=== PATIENT | male | born 1955 ===

== ENCOUNTER 2017-06-27 03:26 | Inpatient (IN) | payer OTHER, SELFPAY ==
[2017-06-27] MEDS ORDERED: diaZEpam 10 mg/2 ml Inj IVP ONE (04:06)
[2017-06-27 04:07] LABS: VENOUS BLOOD GAS BASE EXCESS 4.8 mmol/L (0.0-2.0); VENOUS BLOOD GAS PCO2 45 mmHg (40-60); VENOUS BLOOD PH 7.43 (7.32-7.43)
[2017-06-27 04:10] LABS: BASO % 0.1 % (0.0-2.0); HEMATOCRIT 42.3 % (35.0-51.0); LYMPH # 0.5 K/uL (1.0-4.3); LYMPH % 5.8 % (20.0-40.0); MEAN CELL VOLUME 94.8 fl (80.0-94.0); MEAN CORPUSCULAR HEMOGLOBIN 33.2 pg (27.0-31.0); MEAN PLATELET VOLUME 9.8 fl (7.2-11.7); MONO # 0.9 K/uL (0.0-0.8); MONO % 10.7 % (0.0-10.0); NEUT # 7.4 K/uL (1.8-7.0); NEUT % 83.4 % (50.0-75.0); PLATELET COUNT 130 K/uL (130-400); RED CELL DISTRIBUTION WIDTH 13.3 % (11.5-14.5); WHITE BLOOD COUNT 8.9 K/uL (4.8-10.8)
--- NOTE | 2017-06-27 04:11 | ED PDOC ---
HPI: Altered Mental Status Time Seen by Provider: 06/27/17 03:27 Chief Complaint (Nursing): Altered Mental Status Chief Complaint (Provider): Altered Mental Status History Per: Patient History/Exam Limitations: Clinical Condition Current Symptoms Are (Timing): Still Present Usual Baseline: Unknown Additional Complaint(s): Duc is a 62 y/o male who was brought to the ED by EMS after he was found outside the [facility] confused and disoriented. Patient states he drank beer but has vodka on his person. He denies cough or any other symptoms, and states he feels well. PMD: None Provided Past Medical History Reviewed: Historical Data, Nursing Documentation, Vital Signs Vital Signs: Last Vital Signs Temp 102.2 F H 06/27/17 04:01 Pulse 118 H 06/27/17 03:35 Resp 16 06/27/17 03:35 BP 167/97 H 06/27/17 03:35 Pulse Ox 100 06/27/17 03:35 - Family History Family History: States: Unknown Family Hx - Home Medications Home Medications: Ambulatory Orders Medication Instructions Recorded No Known Home Med [No Known Home 02/22/15 Med] - Allergies Allergies/Adverse Reactions: Allergies Allergy/AdvReac Type Severity Reaction Status Date / Time No Known Allergies Allergy Verified 02/22/15 01:47 Review of Systems Review Of Systems: ROS cannot be obtained secondary to pt's inabilty to answer questions. Respiratory: Negative for: Cough Physical Exam - Reviewed Nursing Documentation Reviewed: Yes Vital Signs Reviewed: Yes - Physical Exam Appears: Positive for: Well, Non-toxic, No Acute Distress Head Exam: Positive for: ATRAUMATIC, NORMAL INSPECTION, NORMOCEPHALIC Skin: Positive for: Normal Color, Warm (warm to touch), Dry ENT: Positive for: Other (tongue fasciculations) Neck: Positive for: Normal, Painless ROM, Supple Extremity: Positive for: Other (tremulous) Neurologic/Psych: Positive for: Alert, Oriented (x 1 - time), Mood/Affect ( Confused) - Laboratory Results Result Diagrams: 06/27/17 03:58 06/27/17 03:58 - ECG O2 Sat by Pulse Oximetry: 100 (RA) Pulse Ox Interpretation: Normal - Critical Care Total Time (In Min): 60 Medical Decision Making Medical Decision Making: Time: 3:45 Initial Impression: Sepsis, possible alcohol withdrawal Initial Plan: --VBG --EKG --Alcohol Serum --CMP --Urine Drug Screen --Magnesium --Phosphorous --CBC --PTT --Prothrombin Time --Chest x-ray --Tylenol 6AM 1 WBC on cell count, very unlikely meningitis. Head CT negative. Urine pending. Etiology of fever unknown. Likely main reason for AMS is alcohol withdrawal. Dr. Dalton aware of patient for ICU for close monitoring for worsening withdrawal symptoms/alcohol withdrawal. Scribe Attestation: Documented by Gaudencio Voss, acting as a scribe for Konstantin Diamond MD Provider Scribe Attestation: All medical record entries made by the Scribe were at my direction and personally dictated by me. I have reviewed the chart and agree that the record accurately reflects my personal performance of the history, physical exam, medical decision making, and the department course for this patient. I have also personally directed, reviewed, and agree with the discharge instructions and disposition. Disposition - Clinical Impression Clinical Impression: Altered mental status, Sepsis, Alcohol withdrawal - Disposition Disposition Time: 05:00 Condition: SERIOUS Lumbar Puncture - Time Out Time Out: Side verified, Site verified, Patient ID confirmed, Sterile procedures obs. - Consent obtained Consent obtained: Emergent consent implied - Performed by Performed by: Attending Physician - Indications Indication(s): Suspected menigitis - Contraindications Contraindications: None - Patient Position Patient position: Right lateral decubitus - Local Anesthetic Location: L4/L5 - Fluid Appearance Fluid Appearance: Clear - Post-procedure Post-procedure: No leak/bld from LP site, Dressing applied, Patient laid flat, Neurovascular status nml - CSF Studies CSF Studies: Cell count/diff, Glucose, Protein, Gram stain, culture/sensitivity - Post-procedural O2 sat % Post-Procedural O2 sat %: 100 - Complications Complications: None - Patient tolerated procedure Patient tolerated procedure: Well
[2017-06-27 04:16] LABS: ALKALINE PHOSPHATASE 123 U/L (38-126); ALT/SGPT 50 U/L (21-72); AST/SGOT 243 U/L (17-59); BILIRUBIN,TOTAL 2.4 mg/dl (0.2-1.3); BLOOD UREA NITROGEN 22 mg/dl (9-20); CARBON DIOXIDE 26 mmol/L (22-30); CHLORIDE 95 mmol/L (98-107); GFR AFRICAN-AMERICAN > 60; GLUCOSE,RANDOM 127 mg/dL (75-110); PHOSPHOROUS 2.8 mg/dl (2.5-4.5); POTASSIUM 3.6 MMOL/L (3.6-5.0); SODIUM 133 mmol/l (132-148); TOTAL PROTEIN 9.7 G/DL (6.3-8.2)
[2017-06-27] MEDS ORDERED: Lidocaine 1% Inj (20ml) ONE (04:16)
[2017-06-27 04:24] LABS: PARTIAL THROMBOPLASTIN TIME 32.6 Seconds (25.6-37.1)
[2017-06-27] MEDS ORDERED: cefTRIAXone 2 GM in Sodium Chloride 0.9% 100 ML IVPB STA (04:35)
[2017-06-27 04:50] LABS: FLUID TYPE SPINAL FLUID
[2017-06-27 05:36] LABS: NEUTROPHIL 82 % (42-75); TOTAL CELLS COUNTED 100
[2017-06-27 05:37] LABS: LARGE PLATELETS PRESENT; STOMATOCYTES MODERATE
[2017-06-27 06:11] LABS: RBC URINE 1 /hpf (0-3); URINE BILIRUBIN NEGATIVE (NEGATIVE); URINE BLOOD LARGE (NEGATIVE); URINE COLOR YELLOW (YELLOW); URINE GLUCOSE (UA) NEG (Normal); URINE KETONE 20 mg/dL (NEGATIVE); URINE LEUKOCYTE ESTERASE NEG Leu/uL (Negative); URINE PROTEIN 100 mg/dL (NEGATIVE); URINE UROBILINOGEN 0.2-1.0 mg/dL (0.2-1.0); WBC URINE 1 /hpf (0-5)
[2017-06-27] MEDS ORDERED: Sodium Chloride 0.9% 1,000 ML IV STA (06:11)
[2017-06-27] MEDS ORDERED: Lorazepam 2 mg/ml (10ml) Sol IV STA (06:24)
[2017-06-27 06:35] LABS: CSF NEUTROPHIL 2 % (0-0)
[2017-06-27 07:17] LABS: VENOUS BLOOD GAS BASE EXCESS 1.2 mmol/L (0.0-2.0); VENOUS BLOOD GAS PCO2 41 mmHg (40-60); VENOUS BLOOD PH 7.41 (7.32-7.43)
--- NOTE | 2017-06-27 08:26 | CP.PCM.HP ---
History of Present Illness - History of Present Illness History of Present Illness: 62 y/o male who was brought to the ED by EMS after he was found outside the [facility] confused and disoriented. Per ER report, Patient states he drank beer but had vodka on his person. Pt somnolent after receiving Ativan 2MG x2 and Librium 50mg. Recently received additional 1mg 20 min prior to examination due to tremulousness. Continues to have tremors despite sedation. Vitals Tmax 102.4 T 98.3 169/95, 112, 98% 16. Received almost 4L NS, Libruim 50 mg, Ativan 2 mg x2, Ativan 2 mg x1, Ceftriaxone x1, CXR cardiomegaly, EKG sinus tach, repeat poor study, CT head neg , CSF gram stain NEG, Urine and Blood Cx pending. BUN 22, Tbili 2.4, AST 243. ETOH <10. Add on Troponin, Lipase, CK. Librium 50 PO Q8 for DTs/ ETOH withdrawal. Taper as needed. Patient to be admitted to ICU for progressively worsening alcohol withdrawal, delirium tremens. ROS: unable to be obtained at this time 2/2 sedation Past medical and surgical history: Unable to obtain at this time secondary to sedation Family history: Unable to obtain secondary gestation at this time Social history: As above Medications unknown Physical exam: Constitutional- patient is sedated, spontaneously moving all limbs does not appear to be any distress Head- NCAT, PERRL Eye- PERRL, normal accommodation ENT- normal exam, MMM. Neck- normal inspection, supple, no JVD Respiratory- CTAB, no wheezes rales rhonchi Cardiovascular- RRR, +S1, +S2 no MRG GI/Abdominal- normal bowel sounds, soft, no mass, no hsm Skin- warm, dry Extremities Exam- normal capillary refill, normal inspection Neurological Exam- sedated, spontaneously moving all limbs Psych-unable to obtain given sedation Micro Results 06/27/17 04:30 Cerebral Spinal Fluid Gram Stain - Final Most Recent Lab Values WBC 8.9 K/uL (4.8-10.8) D 06/27/17 03:58 RBC 4.46 Mil/uL (4.40-5.90) 06/27/17 03:58 Hgb 14.8 g/dL (12.0-18.0) 06/27/17 03:58 Hct 42.3 % (35.0-51.0) 06/27/17 03:58 MCV 94.8 fl (80.0-94.0) H D 06/27/17 03:58 MCH 33.2 pg (27.0-31.0) H 06/27/17 03:58 MCHC 35.0 g/dL (33.0-37.0) 06/27/17 03:58 RDW 13.3 % (11.5-14.5) 06/27/17 03:58 Plt Count 130 K/uL (130-400) 06/27/17 03:58 MPV 9.8 fl (7.2-11.7) 06/27/17 03:58 Neut % (Auto) 83.4 % (50.0-75.0) H 06/27/17 03:58 Lymph % (Auto) 5.8 % (20.0-40.0) L 06/27/17 03:58 Slope % (Auto) 10.7 % (0.0-10.0) H 06/27/17 03:58 Eos % (Auto) 0.0 % (0.0-4.0) 06/27/17 03:58 Baso % (Auto) 0.1 % (0.0-2.0) 06/27/17 03:58 Neut # 7.4 K/uL (1.8-7.0) H 06/27/17 03:58 Lymph # 0.5 K/uL (1.0-4.3) L 06/27/17 03:58 Slope # 0.9 K/uL (0.0-0.8) H 06/27/17 03:58 Eos # 0.0 K/uL (0.0-0.7) 06/27/17 03:58 Baso # 0.0 K/uL (0.0-0.2) 06/27/17 03:58 Neutrophils % (Manual) 82 % (42-75) H 06/27/17 03:58 Lymphocytes % (Manual) 7 % (20-50) L 06/27/17 03:58 Monocytes % (Manual) 11 % (0-10) H 06/27/17 03:58 Platelet Estimate Slightly decreased (NORMAL) L 06/27/17 03:58 Large Platelets Present 06/27/17 03:58 Stomatocytes Moderate 06/27/17 03:58 PT 13.1 Seconds (9.8-13.1) 06/27/17 03:58 INR 1.2 (0.9-1.2) 06/27/17 03:58 APTT 32.6 Seconds (25.6-37.1) 06/27/17 03:58 pO2 42 mm/Hg (30-55) 06/27/17 07:13 VBG pH 7.41 (7.32-7.43) 06/27/17 07:13 VBG pCO2 41 mmHg (40-60) 06/27/17 07:13 VBG HCO3 25.3 mmol/L 06/27/17 07:13 VBG Total CO2 27.3 mmol/L (22-28) 06/27/17 07:13 VBG O2 Sat (Calc) 82.2 % (40-65) H 06/27/17 07:13 VBG Base Excess 1.2 mmol/L (0.0-2.0) 06/27/17 07:13 VBG Potassium 3.5 mmol/L (3.6-5.2) L 06/27/17 07:13 A-a O2 Difference 56.0 mm/Hg 06/27/17 07:13 Sodium 134.0 mmol/L (132-148) 06/27/17 07:13 Chloride 100.0 mmol/L (98-107) 06/27/17 07:13 Glucose 120 mg/dL (75-110) H 06/27/17 07:13 Lactate 1.0 mmol/L (0.7-2.1) 06/27/17 07:13 FiO2 21.0 % 06/27/17 07:13 Crit Value Called To Dr bowen almanzar 06/27/17 07:13 Crit Value Called By 15 06/27/17 07:13 Crit Value Read Back Y 06/27/17 07:13 Blood Gas Notified Time 717 06/27/17 07:13 Sodium 133 mmol/l (132-148) 06/27/17 03:58 Potassium 3.6 MMOL/L (3.6-5.0) 06/27/17 03:58 Chloride 95 mmol/L (98-107) L 06/27/17 03:58 Carbon Dioxide 26 mmol/L (22-30) 06/27/17 03:58 Anion Gap 16 (10-20) 06/27/17 03:58 BUN 22 mg/dl (9-20) H 06/27/17 03:58 Creatinine 0.9 mg/dl (0.8-1.5) 06/27/17 03:58 Est GFR ( Amer) > 60 06/27/17 03:58 Est GFR (Non-Af Amer) > 60 06/27/17 03:58 POC Glucose (mg/dL) 144 mg/dL (65-110) H 06/27/17 13:04 Random Glucose 127 mg/dL (75-110) H 06/27/17 03:58 Calcium 9.0 mg/dL (8.4-10.2) 06/27/17 03:58 Phosphorus 2.8 mg/dl (2.5-4.5) 06/27/17 03:58 Magnesium 2.0 MG/DL (1.6-2.3) 06/27/17 03:58 Total Bilirubin 2.4 mg/dl (0.2-1.3) H 06/27/17 03:58 AST 243 U/L (17-59) H 06/27/17 03:58 ALT 50 U/L (21-72) 06/27/17 03:58 Alkaline Phosphatase 123 U/L (38-126) 06/27/17 03:58 Total Creatine Kinase 7006 U/L (55-170) H 06/27/17 08:28 CK-MB (Mass) 38.9 ng/mL (0.0-3.38) H 06/27/17 07:04 Troponin I 0.1250 ng/mL (0.00-0.120) H* 06/27/17 08:28 Total Protein 9.7 G/DL (6.3-8.2) H 06/27/17 03:58 Albumin 4.9 g/dL (3.5-5.0) 06/27/17 03:58 Globulin 4.8 gm/dL (2.2-3.9) H 06/27/17 03:58 Albumin/Globulin Ratio 1.0 (1.0-2.1) 06/27/17 03:58 Lipase 31 U/L (23-300) 06/27/17 08:28 Venous Blood Potassium 3.5 mmol/L (3.6-5.2) L 06/27/17 07:13 Urine Color Yellow (YELLOW) 06/27/17 06:04 Urine Clarity Slighty-cloudy (Clear) 06/27/17 06:04 Urine pH 6.0 (5.0-8.0) 06/27/17 06:04 Ur Specific [place] 1.017 (1.003-1.030) 06/27/17 06:04 Urine Protein 100 mg/dL (NEGATIVE) 06/27/17 06:04 Urine Glucose (UA) Neg mg/dL (Normal) 06/27/17 06:04 Urine Ketones 20 mg/dL (NEGATIVE) 06/27/17 06:04 Urine Blood Large (NEGATIVE) 06/27/17 06:04 Urine Nitrate Negative (NEGATIVE) 06/27/17 06:04 Urine Bilirubin Negative (NEGATIVE) 06/27/17 06:04 Urine Urobilinogen 0.2-1.0 mg/dL (0.2-1.0) 06/27/17 06:04 Ur Leukocyte Esterase Neg [place]/uL (Negative) 06/27/17 06:04 Urine RBC (Auto) 1 /hpf (0-3) 06/27/17 06:04 Urine Microscopic WBC 1 /hpf (0-5) 06/27/17 06:04 Ur Squamous Epith Cells < 1 /hpf (0-5) 06/27/17 06:04 Fluid Type Spinal fluid 06/27/17 04:49 CSF Volume 3 mL (0-1) H 06/27/17 04:49 CSF Appearance Clear/colorless (CLEAR) 06/27/17 04:49 CSF WBC 1.0 /mm3 (0.0-5.0) 06/27/17 04:49 CSF RBC 20.0 /mm3 (0.0-0.0) H 06/27/17 04:49 CSF Total Cell Counted TEST NOT PERFORMED 06/27/17 04:49 CSF Neutrophils 2 % (0-0) H 06/27/17 04:49 CSF Lymphocytes 1.0 % (0-0) H 06/27/17 04:49 CSF Monos/Macrophages 1 % (0-0) H 06/27/17 04:49 CSF Glucose 72 mg/dL (40-70) H 06/27/17 04:49 CSF Total Protein 60.0 mg/dL (12-60) 06/27/17 04:49 Urine Opiates Screen Negative (NEGATIVE) 06/27/17 06:04 Urine Methadone Screen Negative (NEGATIVE) 06/27/17 06:04 Ur Barbiturates Screen Negative (NEGATIVE) 06/27/17 06:04 Ur Phencyclidine Scrn Negative (NEGATIVE) 06/27/17 06:04 Ur Amphetamines Screen Negative (NEGATIVE) 06/27/17 06:04 U Benzodiazepines Scrn Negative (NEGATIVE) 06/27/17 06:04 U Oth Cocaine Metabols Negative (NEGATIVE) 06/27/17 06:04 U Cannabinoids Screen Negative (NEGATIVE) 06/27/17 06:04 Alcohol, Quantitative < 10 mg/dl (0-10) 06/27/17 04:06 62 y/o male who was brought to the ED by EMS after he was found outside the [facility] confused and disoriented. Per ER report, Patient states he drank beer but had vodka on his person. Patient found to be altered, LP performed in ER. At the time of this examination patient is somnolent after receiving Ativan 2MG x2 and Librium 50mg. Recently received additional 1mg 20 min prior to examination due to tremulousness. Continues to have tremors despite sedation. Vitals Tmax 102.4 T 98.3 169/95, 112, 98% 16. Received almost 4L NS, Libruim 50 mg, Ativan 2 mg x2, Ativan 2 mg x1, Ceftriaxone x1, CXR cardiomegaly, EKG sinus tach, repeat poor study, CT head neg , CSF gram stain NEG, Urine and Blood Cx pending. BUN 22, Tbili 2.4, AST 243. ETOH <10. Add on Troponin, Lipase, CK. Librium 50 PO Q8 for DTs/ ETOH withdrawal. Taper as needed. Patient to be admitted to ICU for progressively worsening alcohol withdrawal, delirium tremens. Altered mental status likely secondary to DTs LP performed in the ER, CSF Gram stain negative drug screen negative, ETOH neg rule out infection: no WBC, UA negative, lipase negative, chest x-ray no acute pathology, procalcitonin is pending fever likely due to withdrawal Delirium tremens EtOH less than 10, and time of last drink unknown patient presented with disorientation, tachycardia, hypertension, hallucinations, hyperthermia MAXIMUM TEMPERATURE of 102.4 controlled with Librium, Ativan when necessary, and taper appropriately Patient agitated in ICU and hallucinating, attempting to fold bed mattress, possibly requiring Precedex? Followed Folic acid and thiamine daily, one banana bag administered Electrolytes stable Rhabdomyolysis CK levels 7006 Continue normal saline repeat CK levels Azotemia elevated BUN Continue normal saline Elevated troponin Troponin 0.12, trend cardiac enzymes No evidence of ischemia or infarct on EKG obtain echo DVT prophylaxis Lovenox Present on Admission - Present on Admission Any Indicators Present on Admission: No Past Patient History - Past Social History Smoking Status: Unknown If Ever Smoked - PSYCHIATRIC Hx Substance Use: No - SURGICAL HISTORY Hx Surgeries: No - ANESTHESIA Hx Anesthesia: No Meds Allergies/Adverse Reactions: Allergies Allergy/AdvReac Type Severity Reaction Status Date / Time No Known Allergies Allergy Verified 02/22/15 01:47 Results - Vital Signs Recent Vital Signs: Last Vital Signs Temp 98.3 F 06/27/17 06:17 Pulse 109 H 06/27/17 07:00 Resp 18 06/27/17 07:00 BP 138/76 06/27/17 07:00 Pulse Ox 96 06/27/17 07:00 - Labs Result Diagrams: 06/27/17 03:58 06/27/17 03:58 Labs: Laboratory Results - last 24 hr 06/27/17 06/27/17 06/27/17 03:58 03:58 03:58 WBC 8.9 D RBC 4.46 Hgb 14.8 Hct 42.3 MCV 94.8 H D MCH 33.2 H MCHC 35.0 RDW 13.3 Plt Count 130 MPV 9.8 Neut % (Auto) 83.4 H Lymph % (Auto) 5.8 L [place] % (Auto) 10.7 H Eos % (Auto) 0.0 Baso % (Auto) 0.1 Neut # 7.4 H Lymph # 0.5 L [place] # 0.9 H Eos # 0.0 Baso # 0.0 Neutrophils % (Manual) 82 H Lymphocytes % (Manual) 7 L Monocytes % (Manual) 11 H Platelet Estimate Slightly decreased L Large Platelets Present Stomatocytes Moderate PT 13.1 INR 1.2 APTT 32.6 pO2 VBG pH VBG pCO2 VBG HCO3 VBG Total CO2 VBG O2 Sat (Calc) VBG Base Excess VBG Potassium A-a O2 Difference Glucose Lactate FiO2 Crit Value Called To Crit Value Called By Crit Value Read Back Blood Gas Notified Time Sodium 133 Potassium 3.6 Chloride 95 L Carbon Dioxide 26 Anion Gap 16 BUN 22 H Creatinine 0.9 Est GFR ( Amer) > 60 Est GFR (Non-Af Amer) > 60 Random Glucose 127 H Calcium 9.0 Phosphorus 2.8 Magnesium 2.0 Total Bilirubin 2.4 H AST 243 H ALT 50 Alkaline Phosphatase 123 CK-MB (Mass) Total Protein 9.7 H Albumin 4.9 Globulin 4.8 H Albumin/Globulin Ratio 1.0 Venous Blood Potassium Urine Color Urine Clarity Urine pH Ur Specific [place] Urine Protein Urine Glucose (UA) Urine Ketones Urine Blood Urine Nitrate Urine Bilirubin Urine Urobilinogen Ur Leukocyte Esterase Urine RBC (Auto) Urine Microscopic WBC Ur Squamous Epith Cells Fluid Type CSF Volume CSF Appearance CSF WBC CSF RBC CSF Total Cell Counted CSF Neutrophils CSF Lymphocytes CSF Monos/Macrophages CSF Glucose CSF Total Protein Urine Opiates Screen Urine Methadone Screen Ur Barbiturates Screen Ur Phencyclidine Scrn Ur Amphetamines Screen U Benzodiazepines Scrn U Oth Cocaine Metabols U Cannabinoids Screen Alcohol, Quantitative 06/27/17 06/27/17 06/27/17 04:04 04:06 04:49 WBC RBC Hgb Hct MCV MCH MCHC RDW Plt Count MPV Neut % (Auto) Lymph % (Auto) [place] % (Auto) Eos % (Auto) Baso % (Auto) Neut # Lymph # [place] # Eos # Baso # Neutrophils % (Manual) Lymphocytes % (Manual) Monocytes % (Manual) Platelet Estimate Large Platelets Stomatocytes PT INR APTT pO2 26 L VBG pH 7.43 VBG pCO2 45 VBG HCO3 27.4 VBG Total CO2 31.3 H VBG O2 Sat (Calc) 55.2 VBG Base Excess 4.8 H VBG Potassium 3.4 L A-a O2 Difference Glucose 133 H Lactate 2.0 FiO2 21.0 Crit Value Called To Crit Value Called By Crit Value Read Back Blood Gas Notified Time Sodium 134.0 Potassium Chloride 96.0 L Carbon Dioxide Anion Gap BUN Creatinine Est GFR ( Amer) Est GFR (Non-Af Amer) Random Glucose Calcium Phosphorus Magnesium Total Bilirubin AST ALT Alkaline Phosphatase CK-MB (Mass) Total Protein Albumin Globulin Albumin/Globulin Ratio Venous Blood Potassium 3.4 L Urine Color Urine Clarity Urine pH Ur Specific [place] Urine Protein Urine Glucose (UA) Urine Ketones Urine Blood Urine Nitrate Urine Bilirubin Urine Urobilinogen Ur Leukocyte Esterase Urine RBC (Auto) Urine Microscopic WBC Ur Squamous Epith Cells Fluid Type Spinal fluid CSF Volume 3 H CSF Appearance Clear/colorless CSF WBC 1.0 CSF RBC 20.0 H CSF Total Cell Counted TEST NOT PERFORMED CSF Neutrophils 2 H CSF Lymphocytes 1.0 H CSF Monos/Macrophages 1 H CSF Glucose CSF Total Protein Urine Opiates Screen Urine Methadone Screen Ur Barbiturates Screen Ur Phencyclidine Scrn Ur Amphetamines Screen U Benzodiazepines Scrn U Oth Cocaine Metabols U Cannabinoids Screen Alcohol, Quantitative < 10 06/27/17 06/27/17 06/27/17 04:49 04:49 06:04 WBC RBC Hgb Hct MCV MCH MCHC RDW Plt Count MPV Neut % (Auto) Lymph % (Auto) [place] % (Auto) Eos % (Auto) Baso % (Auto) Neut # Lymph # [place] # Eos # Baso # Neutrophils % (Manual) Lymphocytes % (Manual) Monocytes % (Manual) Platelet Estimate Large Platelets Stomatocytes PT INR APTT pO2 VBG pH VBG pCO2 VBG HCO3 VBG Total CO2 VBG O2 Sat (Calc) VBG Base Excess VBG Potassium A-a O2 Difference Glucose Lactate FiO2 Crit Value Called To Crit Value Called By Crit Value Read Back Blood Gas Notified Time Sodium Potassium Chloride Carbon Dioxide Anion Gap BUN Creatinine Est GFR ( Amer) Est GFR (Non-Af Amer) Random Glucose Calcium Phosphorus Magnesium Total Bilirubin AST ALT Alkaline Phosphatase CK-MB (Mass) Total Protein Albumin Globulin Albumin/Globulin Ratio Venous Blood Potassium Urine Color Yellow Urine Clarity Slighty-cloudy Urine pH 6.0 Ur Specific [place] 1.017 Urine Protein 100 Urine Glucose (UA) Neg Urine Ketones 20 Urine Blood Large Urine Nitrate Negative Urine Bilirubin Negative Urine Urobilinogen 0.2-1.0 Ur Leukocyte Esterase Neg Urine RBC (Auto) 1 Urine Microscopic WBC 1 Ur Squamous Epith Cells < 1 Fluid Type CSF Volume CSF Appearance CSF WBC CSF RBC CSF Total Cell Counted CSF Neutrophils CSF Lymphocytes CSF Monos/Macrophages CSF Glucose 72 H CSF Total Protein 60.0 Urine Opiates Screen Urine Methadone Screen Ur Barbiturates Screen Ur Phencyclidine Scrn Ur Amphetamines Screen U Benzodiazepines Scrn U Oth Cocaine Metabols U Cannabinoids Screen Alcohol, Quantitative 06/27/17 06/27/17 06/27/17 06:04 07:04 07:13 WBC RBC Hgb Hct MCV MCH MCHC RDW Plt Count MPV Neut % (Auto) Lymph % (Auto) [place] % (Auto) Eos % (Auto) Baso % (Auto) Neut # Lymph # [place] # Eos # Baso # Neutrophils % (Manual) Lymphocytes % (Manual) Monocytes % (Manual) Platelet Estimate Large Platelets Stomatocytes PT INR APTT pO2 42 VBG pH 7.41 VBG pCO2 41 VBG HCO3 25.3 VBG Total CO2 27.3 VBG O2 Sat (Calc) 82.2 H VBG Base Excess 1.2 VBG Potassium 3.5 L A-a O2 Difference 56.0 Glucose 120 H Lactate 1.0 FiO2 21.0 Crit Value Called To Dr bowen almanzar Crit Value Called By 15 Crit Value Read Back Y Blood Gas Notified Time 717 Sodium 134.0 Potassium Chloride 100.0 Carbon Dioxide Anion Gap BUN Creatinine Est GFR ( Amer) Est GFR (Non-Af Amer) Random Glucose Calcium Phosphorus Magnesium Total Bilirubin AST ALT Alkaline Phosphatase CK-MB (Mass) 38.9 H Total Protein Albumin Globulin Albumin/Globulin Ratio Venous Blood Potassium 3.5 L Urine Color Urine Clarity Urine pH Ur Specific [place] Urine Protein Urine Glucose (UA) Urine Ketones Urine Blood Urine Nitrate Urine Bilirubin Urine Urobilinogen Ur Leukocyte Esterase Urine RBC (Auto) Urine Microscopic WBC Ur Squamous Epith Cells Fluid Type CSF Volume CSF Appearance CSF WBC CSF RBC CSF Total Cell Counted CSF Neutrophils CSF Lymphocytes CSF Monos/Macrophages CSF Glucose CSF Total Protein Urine Opiates Screen Negative Urine Methadone Screen Negative Ur Barbiturates Screen Negative Ur Phencyclidine Scrn Negative Ur Amphetamines Screen Negative U Benzodiazepines Scrn Negative U Oth Cocaine Metabols Negative U Cannabinoids Screen Negative Alcohol, Quantitative
--- NOTE | 2017-06-27 08:41 | CT ---
PROCEDURE: CT HEAD WITHOUT CONTRAST. HISTORY: AMS COMPARISON: None available. TECHNIQUE: Axial computed tomography images were obtained through the head/brain without intravenous contrast. Radiation dose: Total exam DLP = 891.66 mGy-cm. This CT exam was performed using one or more of the following dose reduction techniques: Automated exposure control, adjustment of the mA and/or kV according to patient size, and/or use of iterative reconstruction technique. FINDINGS: HEMORRHAGE: No intracranial hemorrhage. BRAIN: Ferreira-white matter differentiation is preserved. There is no mass, mass effect or abnormal extra-axial fluid collection. There is no territorial infarction. There are symmetric senile calcifications in the basal ganglia. There are coarse benign calcifications in the left posterior temporal lobe. VENTRICLES: There is mild age-related global parenchymal volume loss and proportionate enlargement of the ventricles and cortical sulci. CALVARIUM: The skull base and calvarium are. PARANASAL SINUSES: There is mild mucosal thickening in the maxillary sinuses. The remaining included paranasal sinuses are predominantly clear. MASTOID AIR CELLS: Predominantly clear. OTHER FINDINGS: Normal None. IMPRESSION: No acute intracranial abnormality. A preliminary report was provided by [employer] [facility].
[2017-06-27 09:00] LABS: TROPONIN I 0.125 ng/mL (0.00-0.120)
[2017-06-27] MEDS: Sodium Chloride 0.9% 1,000 ML IV SCH ×3 (09:15→21:58)
[2017-06-27] MEDS ORDERED: Multivitamin (MVI) 10 ML, Thiamine 100 MG in Dextrose 5%/0.45% NS 1,000 ML IV ONE (09:30)
--- NOTE | 2017-06-27 09:50 | RAD ---
HISTORY: fever, r/o PNA COMPARISON: No prior. FINDINGS: LUNGS: The lungs are well inflated and clear. PLEURA: No significant pleural effusion identified, no pneumothorax apparent. CARDIOVASCULAR: Normal. OSSEOUS STRUCTURES: No significant abnormalities. VISUALIZED UPPER ABDOMEN: Normal. OTHER FINDINGS: None. IMPRESSION: No active pulmonary disease.
[2017-06-27] MEDS: Enoxaparin 40 mg Syringe SC SCH (10:48)
[2017-06-27] MEDS: Multiple Vitamins Oral Solution PO SCH (10:48)
[2017-06-27] MEDS: Dexmedetomidine Hydrochloride 400 MCG in Sodium Chloride 0.9% 96 ML IV SCH ×2 (10:51→23:18)
--- NOTE | 2017-06-27 11:55 | CP.CCUPN ---
CCU Subjective - Physician Review Subjective (Free Text): 62M , brought into ER overnight after being found on the street unresponsive and febrile. Usual ETOH intake is daily beer, but found to have a bottle of Vodka near him. Initially observed overnight for ETOH Detox, but later developed signs of progressive DTs and now upgraded to ICU observation and mgmt. He is awake and arousable, answers to simple questions with groans and intermittent one word answers in Salvadorean. No obvious distress, but hands are tremulous, and he displays tachycardia; no diaphoresis. Occasional overt agitation noted, trying to get up OOB and manipulating mattress and bending it over. He has just been administered PO Librium 50mg, and recd total dose of Ativan 5 mg approx. 2 hours earlier. Other vitals and I/O's reviewed. ALLERGIES: NKDA Ambulatory Meds: Unknown ROS: Unobtainable due to altered mental status. No other pertinent negs or positives on 10+ system review. PMSFH: All other Nursing and physician documentation reviewed to date; no new pertinent info noted relevant to current medical problems. EKG: Sinus 115/min, poor technical quality. CXR IMPRESSION / MAJOR PROBLEMS NOW:T 1. AMS: Acute ETOH intoxication vs. Occult Seizure Activity with prolonged post-ictal state. 2. ETOH Withdrawal Syndrome 3. Mild Azotemia, r/o Rhabdomyolysis 4. Isolated, ?? spurious Temp elevation, doubt true Sepsis; possible manifestation of ETOH withdrawal. 5. R/o Lower extremity DVT PLAN: 1. Thiamine / Folate 2. Seizure precautions / Neurochecks 3. IVF hydration 4. 1:1 observation. 5. May try Precedex infusion. 6. Continue with Librium. 7. Serial Trops, repeat EKG. Get ECHO. 8. Serial CPK levels. 9. Will hold on any empiric abx coverage for now. 10. LLE Venous Doppler US CCU Objective - Vital Signs / Intake & Output Vital Signs (Last 4 hours): Vital Signs Temp Pulse Resp BP Pulse Ox 06/27/17 08:58 98.3 F 111 H 16 156/90 H 97 06/27/17 08:13 109 H 18 138/76 06/27/17 08:02 106 H 22 169/95 H 95 Intake and Output (Last 8hrs): Intake & Output 06/26/17 06/27/17 06/27/17 22:59 06:59 14:59 Intake Total 0.1 Balance 0.1 Weight 200 lb Intake: IV 0.1 - Physical Exam Physical Exam Limitations: Positive for: Altered Mental Status Head: Positive for: Atraumatic, Normocephalic Pupils: Positive for: PERRL Extroacular Muscles: Positive for: EOMI Mouth: Positive for: Dry Neck: Positive for: Normal Range of Motion. Negative for: JVD Respiratory/Chest: Positive for: Decreased Breath Sounds. Negative for: Accessory Muscle Use, Wheezes Cardiovascular: Positive for: Regular Rate and Rhythm, Tachycardic. Negative for: Murmurs, Rub Abdomen: Positive for: Normal Bowel Sounds. Negative for: Tenderness, Distention, Mass/Organomegaly Lower Extremity: Positive for: Edema, Erythema Neurological: Positive for: Motor Func Grossly Intact, Normal Sensory Function Skin: Positive for: Warm, Dry. Negative for: Rashes Psychiatric: Positive for: Intoxicated - Medications Active Medications: Active Medications Generic Name Dose Route Start Last Admin Trade Name Freq PRN Reason Stop Dose Admin Chlordiazepoxide 50 mg 06/27/17 09:00 06/27/17 09:12 Librium PO 50 mg Q8 JAY Administration Enoxaparin Sodium 40 mg 06/27/17 09:00 06/27/17 10:48 Lovenox SC 40 mg DAILY JAY Administration Protocol Folic Acid 1 mg 06/27/17 09:00 06/27/17 10:48 Folic Acid PO 1 mg DAILY JAY Administration Sodium Chloride 1,000 mls @ 150 mls/hr 06/27/17 09:00 06/27/17 09:15 Sodium Chloride 0.9% IV 150 mls/hr .Q6H40M JAY Administration Multivitamins/Vitamin C 10 ml/ 1,011 mls @ 250 mls/hr 06/27/17 09:30 10:47 Thiamine HCl 100 mg/ Dextrose IV 06/27/17 13:32 250 mls/hr /Sodium Chloride .Q4H3M ONE Administration Dexmedetomidine HCl 400 mcg/ 100 mls @ 4.53 mls/hr 06/27/17 10:30 06/27/17 11 :44 Sodium Chloride IV 0.3 mcg/kg/hr .Q22H5M JAY 6.8 mls/hr Protocol Titration 0.2 MCG/KG/HR Lorazepam 1 mg 06/27/17 08:33 Ativan PO Q3 PRN ALCOHOL WITHDRAWAL SYMPTOMS: Multivitamins/Vitamin C 5 ml 06/27/17 09:00 06/27/17 10:48 Multi-Delyn Liquid PO 5 ml DAILY JAY Administration Thiamine HCl 100 mg 06/27/17 09:00 06/27/17 10:49 Vitamin B1 Tab PO 100 mg DAILY JAY Administration - Patient Studies Lab Studies: Microbiology Studies 06/27/17 04:30 Gram Stain - Final Cerebral Spinal Fluid Lab Studies 06/27/17 06/27/17 06/27/17 Range/Units 08:28 08:28 07:13 WBC (4.8-10.8) K/uL RBC (4.40-5.90) Mil/uL Hgb (12.0-18.0) g/dL Hct (35.0-51.0) % MCV (80.0-94.0) fl MCH (27.0-31.0) pg MCHC (33.0-37.0) g/dL RDW (11.5-14.5) % Plt Count (130-400) K/uL MPV (7.2-11.7) fl Neut % (Auto) (50.0-75.0) % Lymph % (Auto) (20.0-40.0) % B[place] % (Auto) (0.0-10.0) % Eos % (Auto) (0.0-4.0) % Baso % (Auto) (0.0-2.0) % Neut # (1.8-7.0) K/uL Lymph # (1.0-4.3) K/uL B[place] # (0.0-0.8) K/uL Eos # (0.0-0.7) K/uL Baso # (0.0-0.2) K/uL Neutrophils % (Manual) (42-75) % Lymphocytes % (Manual) (20-50) % Monocytes % (Manual) (0-10) % Platelet Estimate (NORMAL) Large Platelets Stomatocytes PT (9.8-13.1) Seconds INR (0.9-1.2) APTT (25.6-37.1) Seconds pO2 42 (30-55) mm/Hg VBG pH 7.41 (7.32-7.43) VBG pCO2 41 (40-60) mmHg VBG HCO3 25.3 mmol/L VBG Total CO2 27.3 (22-28) mmol/L VBG O2 Sat (Calc) 82.2 H (40-65) % VBG Base Excess 1.2 (0.0-2.0) mmol/L VBG Potassium 3.5 L (3.6-5.2) mmol/L A-a O2 Difference 56.0 mm/Hg Glucose 120 H (75-110) mg/dL Lactate 1.0 (0.7-2.1) mmol/L FiO2 21.0 % Crit Value Called To Dr bowen almanzar Crit Value Called By 15 Crit Value Read Back Y Blood Gas Notified Time 717 Sodium 134.0 (132-148) mmol/l Potassium (3.6-5.0) MMOL/L Chloride 100.0 (98-107) mmol/L Carbon Dioxide (22-30) mmol/L Anion Gap (10-20) BUN (9-20) mg/dl Creatinine (0.8-1.5) mg/dl Est GFR ( Amer) Est GFR (Non-Af Amer) Random Glucose (75-110) mg/dL Calcium (8.4-10.2) mg/dL Phosphorus (2.5-4.5) mg/dl Magnesium (1.6-2.3) MG/DL Total Bilirubin (0.2-1.3) mg/dl AST (17-59) U/L ALT (21-72) U/L Alkaline Phosphatase (38-126) U/L Total Creatine Kinase 7006 H (55-170) U/L CK-MB (Mass) (0.0-3.38) ng/mL Troponin I 0.1250 H* (0.00-0.120) ng/mL Total Protein (6.3-8.2) G/DL Albumin (3.5-5.0) g/dL Globulin (2.2-3.9) gm/dL Albumin/Globulin Ratio (1.0-2.1) Lipase 31 (23-300) U/L Venous Blood Potassium 3.5 L (3.6-5.2) mmol/L Urine Color (YELLOW) Urine Clarity (Clear) Urine pH (5.0-8.0) Ur Specific [place] (1.003-1.030) Urine Protein (NEGATIVE) mg/dL Urine Glucose (UA) (Normal) mg/dL Urine Ketones (NEGATIVE) mg/dL Urine Blood (NEGATIVE) Urine Nitrate (NEGATIVE) Urine Bilirubin (NEGATIVE) Urine Urobilinogen (0.2-1.0) mg/dL Ur Leukocyte Esterase (Negative) Abimbola/uL Urine RBC (Auto) (0-3) /hpf Urine Microscopic WBC (0-5) /hpf Ur Squamous Epith Cells (0-5) /hpf Fluid Type CSF Volume (0-1) mL CSF Appearance (CLEAR) CSF WBC (0.0-5.0) /mm3 CSF RBC (0.0-0.0) /mm3 CSF Total Cell Counted CSF Neutrophils (0-0) % CSF Lymphocytes (0-0) % CSF Monos/Macrophages (0-0) % CSF Glucose (40-70) mg/dL CSF Total Protein (12-60) mg/dL Urine Opiates Screen (NEGATIVE) Urine Methadone Screen (NEGATIVE) Ur Barbiturates Screen (NEGATIVE) Ur Phencyclidine Scrn (NEGATIVE) Ur Amphetamines Screen (NEGATIVE) U Benzodiazepines Scrn (NEGATIVE) U Oth Cocaine Metabols (NEGATIVE) U Cannabinoids Screen (NEGATIVE) Alcohol, Quantitative (0-10) mg/dl 06/27/17 06/27/17 06/27/17 Range/Units 07:04 06:04 06:04 WBC (4.8-10.8) K/uL RBC (4.40-5.90) Mil/uL Hgb (12.0-18.0) g/dL Hct (35.0-51.0) % MCV (80.0-94.0) fl MCH (27.0-31.0) pg MCHC (33.0-37.0) g/dL RDW (11.5-14.5) % Plt Count (130-400) K/uL MPV (7.2-11.7) fl Neut % (Auto) (50.0-75.0) % Lymph % (Auto) (20.0-40.0) % B[place] % (Auto) (0.0-10.0) % Eos % (Auto) (0.0-4.0) % Baso % (Auto) (0.0-2.0) % Neut # (1.8-7.0) K/uL Lymph # (1.0-4.3) K/uL [place] # (0.0-0.8) K/uL Eos # (0.0-0.7) K/uL Baso # (0.0-0.2) K/uL Neutrophils % (Manual) (42-75) % Lymphocytes % (Manual) (20-50) % Monocytes % (Manual) (0-10) % Platelet Estimate (NORMAL) Large Platelets Stomatocytes PT (9.8-13.1) Seconds INR (0.9-1.2) APTT (25.6-37.1) Seconds pO2 (30-55) mm/Hg VBG pH (7.32-7.43) VBG pCO2 (40-60) mmHg VBG HCO3 mmol/L VBG Total CO2 (22-28) mmol/L VBG O2 Sat (Calc) (40-65) % VBG Base Excess (0.0-2.0) mmol/L VBG Potassium (3.6-5.2) mmol/L A-a O2 Difference mm/Hg Glucose (75-110) mg/dL Lactate (0.7-2.1) mmol/L FiO2 % Crit Value Called To Crit Value Called By Crit Value Read Back Blood Gas Notified Time Sodium (132-148) mmol/l Potassium (3.6-5.0) MMOL/L Chloride (98-107) mmol/L Carbon Dioxide (22-30) mmol/L Anion Gap (10-20) BUN (9-20) mg/dl Creatinine (0.8-1.5) mg/dl Est GFR ( Amer) Est GFR (Non-Af Amer) Random Glucose (75-110) mg/dL Calcium (8.4-10.2) mg/dL Phosphorus (2.5-4.5) mg/dl Magnesium (1.6-2.3) MG/DL Total Bilirubin (0.2-1.3) mg/dl AST (17-59) U/L ALT (21-72) U/L Alkaline Phosphatase (38-126) U/L Total Creatine Kinase (55-170) U/L CK-MB (Mass) 38.9 H (0.0-3.38) ng/mL Troponin I (0.00-0.120) ng/mL Total Protein (6.3-8.2) G/DL Albumin (3.5-5.0) g/dL Globulin (2.2-3.9) gm/dL Albumin/Globulin Ratio (1.0-2.1) Lipase (23-300) U/L Venous Blood Potassium (3.6-5.2) mmol/L Urine Color Yellow (YELLOW) Urine Clarity Slighty-cloudy (Clear) Urine pH 6.0 (5.0-8.0) Ur Specific [place] 1.017 (1.003-1.030) Urine Protein 100 (NEGATIVE) mg/dL Urine Glucose (UA) Neg (Normal) mg/dL Urine Ketones 20 (NEGATIVE) mg/dL Urine Blood Large (NEGATIVE) Urine Nitrate Negative (NEGATIVE) Urine Bilirubin Negative (NEGATIVE) Urine Urobilinogen 0.2-1.0 (0.2-1.0) mg/dL Ur Leukocyte Esterase Neg (Negative) [place]ola/uL Urine RBC (Auto) 1 (0-3) /hpf Urine Microscopic WBC 1 (0-5) /hpf Ur Squamous Epith Cells < 1 (0-5) /hpf Fluid Type CSF Volume (0-1) mL CSF Appearance (CLEAR) CSF WBC (0.0-5.0) /mm3 CSF RBC (0.0-0.0) /mm3 CSF Total Cell Counted CSF Neutrophils (0-0) % CSF Lymphocytes (0-0) % CSF Monos/Macrophages (0-0) % CSF Glucose (40-70) mg/dL CSF Total Protein (12-60) mg/dL Urine Opiates Screen Negative (NEGATIVE) Urine Methadone Screen Negative (NEGATIVE) Ur Barbiturates Screen Negative (NEGATIVE) Ur Phencyclidine Scrn Negative (NEGATIVE) Ur Amphetamines Screen Negative (NEGATIVE) U Benzodiazepines Scrn Negative (NEGATIVE) U Oth Cocaine Metabols Negative (NEGATIVE) U Cannabinoids Screen Negative (NEGATIVE) Alcohol, Quantitative (0-10) mg/dl 06/27/17 06/27/17 06/27/17 Range/Units 04:49 04:49 04:49 WBC (4.8-10.8) K/uL RBC (4.40-5.90) Mil/uL Hgb (12.0-18.0) g/dL Hct (35.0-51.0) % MCV (80.0-94.0) fl MCH (27.0-31.0) pg MCHC (33.0-37.0) g/dL RDW (11.5-14.5) % Plt Count (130-400) K/uL MPV (7.2-11.7) fl Neut % (Auto) (50.0-75.0) % Lymph % (Auto) (20.0-40.0) % [place] % (Auto) (0.0-10.0) % Eos % (Auto) (0.0-4.0) % Baso % (Auto) (0.0-2.0) % Neut # (1.8-7.0) K/uL Lymph # (1.0-4.3) K/uL [place] # (0.0-0.8) K/uL Eos # (0.0-0.7) K/uL Baso # (0.0-0.2) K/uL Neutrophils % (Manual) (42-75) % Lymphocytes % (Manual) (20-50) % Monocytes % (Manual) (0-10) % Platelet Estimate (NORMAL) Large Platelets Stomatocytes PT (9.8-13.1) Seconds INR (0.9-1.2) APTT (25.6-37.1) Seconds pO2 (30-55) mm/Hg VBG pH (7.32-7.43) VBG pCO2 (40-60) mmHg VBG HCO3 mmol/L VBG Total CO2 (22-28) mmol/L VBG O2 Sat (Calc) (40-65) % VBG Base Excess (0.0-2.0) mmol/L VBG Potassium (3.6-5.2) mmol/L A-a O2 Difference mm/Hg Glucose (75-110) mg/dL Lactate (0.7-2.1) mmol/L FiO2 % Crit Value Called To Crit Value Called By Crit Value Read Back Blood Gas Notified Time Sodium (132-148) mmol/l Potassium (3.6-5.0) MMOL/L Chloride (98-107) mmol/L Carbon Dioxide (22-30) mmol/L Anion Gap (10-20) BUN (9-20) mg/dl Creatinine (0.8-1.5) mg/dl Est GFR ( Amer) Est GFR (Non-Af Amer) Random Glucose (75-110) mg/dL Calcium (8.4-10.2) mg/dL Phosphorus (2.5-4.5) mg/dl Magnesium (1.6-2.3) MG/DL Total Bilirubin (0.2-1.3) mg/dl AST (17-59) U/L ALT (21-72) U/L Alkaline Phosphatase (38-126) U/L Total Creatine Kinase (55-170) U/L CK-MB (Mass) (0.0-3.38) ng/mL Troponin I (0.00-0.120) ng/mL Total Protein (6.3-8.2) G/DL Albumin (3.5-5.0) g/dL Globulin (2.2-3.9) gm/dL Albumin/Globulin Ratio (1.0-2.1) Lipase (23-300) U/L Venous Blood Potassium (3.6-5.2) mmol/L Urine Color (YELLOW) Urine Clarity (Clear) Urine pH (5.0-8.0) Ur Specific [place] (1.003-1.030) Urine Protein (NEGATIVE) mg/dL Urine Glucose (UA) (Normal) mg/dL Urine Ketones (NEGATIVE) mg/dL Urine Blood (NEGATIVE) Urine Nitrate (NEGATIVE) Urine Bilirubin (NEGATIVE) Urine Urobilinogen (0.2-1.0) mg/dL Ur Leukocyte Esterase (Negative) [place]/uL Urine RBC (Auto) (0-3) /hpf Urine Microscopic WBC (0-5) /hpf Ur Squamous Epith Cells (0-5) /hpf Fluid Type Spinal fluid CSF Volume 3 H (0-1) mL CSF Appearance Clear/colorless (CLEAR) CSF WBC 1.0 (0.0-5.0) /mm3 CSF RBC 20.0 H (0.0-0.0) /mm3 CSF Total Cell Counted TEST NOT PERFORMED CSF Neutrophils 2 H (0-0) % CSF Lymphocytes 1.0 H (0-0) % CSF Monos/Macrophages 1 H (0-0) % CSF Glucose 72 H (40-70) mg/dL CSF Total Protein 60.0 (12-60) mg/dL Urine Opiates Screen (NEGATIVE) Urine Methadone Screen (NEGATIVE) Ur Barbiturates Screen (NEGATIVE) Ur Phencyclidine Scrn (NEGATIVE) Ur Amphetamines Screen (NEGATIVE) U Benzodiazepines Scrn (NEGATIVE) U Oth Cocaine Metabols (NEGATIVE) U Cannabinoids Screen (NEGATIVE) Alcohol, Quantitative (0-10) mg/dl 06/27/17 06/27/17 06/27/17 Range/Units 04:06 04:04 03:58 WBC (4.8-10.8) K/uL RBC (4.40-5.90) Mil/uL Hgb (12.0-18.0) g/dL Hct (35.0-51.0) % MCV (80.0-94.0) fl MCH (27.0-31.0) pg MCHC (33.0-37.0) g/dL RDW (11.5-14.5) % Plt Count (130-400) K/uL MPV (7.2-11.7) fl Neut % (Auto) (50.0-75.0) % Lymph % (Auto) (20.0-40.0) % [place] % (Auto) (0.0-10.0) % Eos % (Auto) (0.0-4.0) % Baso % (Auto) (0.0-2.0) % Neut # (1.8-7.0) K/uL Lymph # (1.0-4.3) K/uL [place] # (0.0-0.8) K/uL Eos # (0.0-0.7) K/uL Baso # (0.0-0.2) K/uL Neutrophils % (Manual) (42-75) % Lymphocytes % (Manual) (20-50) % Monocytes % (Manual) (0-10) % Platelet Estimate (NORMAL) Large Platelets Stomatocytes PT 13.1 (9.8-13.1) Seconds INR 1.2 (0.9-1.2) APTT 32.6 (25.6-37.1) Seconds pO2 26 L (30-55) mm/Hg VBG pH 7.43 (7.32-7.43) VBG pCO2 45 (40-60) mmHg VBG HCO3 27.4 mmol/L VBG Total CO2 31.3 H (22-28) mmol/L VBG O2 Sat (Calc) 55.2 (40-65) % VBG Base Excess 4.8 H (0.0-2.0) mmol/L VBG Potassium 3.4 L (3.6-5.2) mmol/L A-a O2 Difference mm/Hg Glucose 133 H (75-110) mg/dL Lactate 2.0 (0.7-2.1) mmol/L FiO2 21.0 % Crit Value Called To Crit Value Called By Crit Value Read Back Blood Gas Notified Time Sodium 134.0 (132-148) mmol/l Potassium (3.6-5.0) MMOL/L Chloride 96.0 L (98-107) mmol/L Carbon Dioxide (22-30) mmol/L Anion Gap (10-20) BUN (9-20) mg/dl Creatinine (0.8-1.5) mg/dl Est GFR ( Amer) Est GFR (Non-Af Amer) Random Glucose (75-110) mg/dL Calcium (8.4-10.2) mg/dL Phosphorus (2.5-4.5) mg/dl Magnesium (1.6-2.3) MG/DL Total Bilirubin (0.2-1.3) mg/dl AST (17-59) U/L ALT (21-72) U/L Alkaline Phosphatase (38-126) U/L Total Creatine Kinase (55-170) U/L CK-MB (Mass) (0.0-3.38) ng/mL Troponin I (0.00-0.120) ng/mL Total Protein (6.3-8.2) G/DL Albumin (3.5-5.0) g/dL Globulin (2.2-3.9) gm/dL Albumin/Globulin Ratio (1.0-2.1) Lipase (23-300) U/L Venous Blood Potassium 3.4 L (3.6-5.2) mmol/L Urine Color (YELLOW) Urine Clarity (Clear) Urine pH (5.0-8.0) Ur Specific [place] (1.003-1.030) Urine Protein (NEGATIVE) mg/dL Urine Glucose (UA) (Normal) mg/dL Urine Ketones (NEGATIVE) mg/dL Urine Blood (NEGATIVE) Urine Nitrate (NEGATIVE) Urine Bilirubin (NEGATIVE) Urine Urobilinogen (0.2-1.0) mg/dL Ur Leukocyte Esterase (Negative) [place]/uL Urine RBC (Auto) (0-3) /hpf Urine Microscopic WBC (0-5) /hpf Ur Squamous Epith Cells (0-5) /hpf Fluid Type CSF Volume (0-1) mL CSF Appearance (CLEAR) CSF WBC (0.0-5.0) /mm3 CSF RBC (0.0-0.0) /mm3 CSF Total Cell Counted CSF Neutrophils (0-0) % CSF Lymphocytes (0-0) % CSF Monos/Macrophages (0-0) % CSF Glucose (40-70) mg/dL CSF Total Protein (12-60) mg/dL Urine Opiates Screen (NEGATIVE) Urine Methadone Screen (NEGATIVE) Ur Barbiturates Screen (NEGATIVE) Ur Phencyclidine Scrn (NEGATIVE) Ur Amphetamines Screen (NEGATIVE) U Benzodiazepines Scrn (NEGATIVE) U Oth Cocaine Metabols (NEGATIVE) U Cannabinoids Screen (NEGATIVE) Alcohol, Quantitative < 10 (0-10) mg/dl 06/27/17 06/27/17 Range/Units 03:58 03:58 WBC 8.9 D (4.8-10.8) K/uL RBC 4.46 (4.40-5.90) Mil/uL Hgb 14.8 (12.0-18.0) g/dL Hct 42.3 (35.0-51.0) % MCV 94.8 H D (80.0-94.0) fl MCH 33.2 H (27.0-31.0) pg MCHC 35.0 (33.0-37.0) g/dL RDW 13.3 (11.5-14.5) % Plt Count 130 (130-400) K/uL MPV 9.8 (7.2-11.7) fl Neut % (Auto) 83.4 H (50.0-75.0) % Lymph % (Auto) 5.8 L (20.0-40.0) % [place] % (Auto) 10.7 H (0.0-10.0) % Eos % (Auto) 0.0 (0.0-4.0) % Baso % (Auto) 0.1 (0.0-2.0) % Neut # 7.4 H (1.8-7.0) K/uL Lymph # 0.5 L (1.0-4.3) K/uL B[place] # 0.9 H (0.0-0.8) K/uL Eos # 0.0 (0.0-0.7) K/uL Baso # 0.0 (0.0-0.2) K/uL Neutrophils % (Manual) 82 H (42-75) % Lymphocytes % (Manual) 7 L (20-50) % Monocytes % (Manual) 11 H (0-10) % Platelet Estimate Slightly decreased L (NORMAL) Large Platelets Present Stomatocytes Moderate PT (9.8-13.1) Seconds INR (0.9-1.2) APTT (25.6-37.1) Seconds pO2 (30-55) mm/Hg VBG pH (7.32-7.43) VBG pCO2 (40-60) mmHg VBG HCO3 mmol/L VBG Total CO2 (22-28) mmol/L VBG O2 Sat (Calc) (40-65) % VBG Base Excess (0.0-2.0) mmol/L VBG Potassium (3.6-5.2) mmol/L A-a O2 Difference mm/Hg Glucose (75-110) mg/dL Lactate (0.7-2.1) mmol/L FiO2 % Crit Value Called To Crit Value Called By Crit Value Read Back Blood Gas Notified Time Sodium 133 (132-148) mmol/l Potassium 3.6 (3.6-5.0) MMOL/L Chloride 95 L (98-107) mmol/L Carbon Dioxide 26 (22-30) mmol/L Anion Gap 16 (10-20) BUN 22 H (9-20) mg/dl Creatinine 0.9 (0.8-1.5) mg/dl Est GFR ( Amer) > 60 Est GFR (Non-Af Amer) > 60 Random Glucose 127 H (75-110) mg/dL Calcium 9.0 (8.4-10.2) mg/dL Phosphorus 2.8 (2.5-4.5) mg/dl Magnesium 2.0 (1.6-2.3) MG/DL Total Bilirubin 2.4 H (0.2-1.3) mg/dl AST 243 H (17-59) U/L ALT 50 (21-72) U/L Alkaline Phosphatase 123 (38-126) U/L Total Creatine Kinase (55-170) U/L CK-MB (Mass) (0.0-3.38) ng/mL Troponin I (0.00-0.120) ng/mL Total Protein 9.7 H (6.3-8.2) G/DL Albumin 4.9 (3.5-5.0) g/dL Globulin 4.8 H (2.2-3.9) gm/dL Albumin/Globulin Ratio 1.0 (1.0-2.1) Lipase (23-300) U/L Venous Blood Potassium (3.6-5.2) mmol/L Urine Color (YELLOW) Urine Clarity (Clear) Urine pH (5.0-8.0) Ur Specific [place] (1.003-1.030) Urine Protein (NEGATIVE) mg/dL Urine Glucose (UA) (Normal) mg/dL Urine Ketones (NEGATIVE) mg/dL Urine Blood (NEGATIVE) Urine Nitrate (NEGATIVE) Urine Bilirubin (NEGATIVE) Urine Urobilinogen (0.2-1.0) mg/dL Ur Leukocyte Esterase (Negative) [place]/uL Urine RBC (Auto) (0-3) /hpf Urine Microscopic WBC (0-5) /hpf Ur Squamous Epith Cells (0-5) /hpf Fluid Type CSF Volume (0-1) mL CSF Appearance (CLEAR) CSF WBC (0.0-5.0) /mm3 CSF RBC (0.0-0.0) /mm3 CSF Total Cell Counted CSF Neutrophils (0-0) % CSF Lymphocytes (0-0) % CSF Monos/Macrophages (0-0) % CSF Glucose (40-70) mg/dL CSF Total Protein (12-60) mg/dL Urine Opiates Screen (NEGATIVE) Urine Methadone Screen (NEGATIVE) Ur Barbiturates Screen (NEGATIVE) Ur Phencyclidine Scrn (NEGATIVE) Ur Amphetamines Screen (NEGATIVE) U Benzodiazepines Scrn (NEGATIVE) U Oth Cocaine Metabols (NEGATIVE) U Cannabinoids Screen (NEGATIVE) Alcohol, Quantitative (0-10) mg/dl Laboratory Results - last 24 hr 06/27/17 06/27/17 06/27/17 03:58 03:58 03:58 WBC 8.9 D RBC 4.46 Hgb 14.8 Hct 42.3 MCV 94.8 H D MCH 33.2 H MCHC 35.0 RDW 13.3 Plt Count 130 MPV 9.8 Neut % (Auto) 83.4 H Lymph % (Auto) 5.8 L [place] % (Auto) 10.7 H Eos % (Auto) 0.0 Baso % (Auto) 0.1 Neut # 7.4 H Lymph # 0.5 L [place] # 0.9 H Eos # 0.0 Baso # 0.0 Neutrophils % (Manual) 82 H Lymphocytes % (Manual) 7 L Monocytes % (Manual) 11 H Platelet Estimate Slightly decreased L Large Platelets Present Stomatocytes Moderate PT 13.1 INR 1.2 APTT 32.6 pO2 VBG pH VBG pCO2 VBG HCO3 VBG Total CO2 VBG O2 Sat (Calc) VBG Base Excess VBG Potassium A-a O2 Difference Glucose Lactate FiO2 Crit Value Called To Crit Value Called By Crit Value Read Back Blood Gas Notified Time Sodium 133 Potassium 3.6 Chloride 95 L Carbon Dioxide 26 Anion Gap 16 BUN 22 H Creatinine 0.9 Est GFR ( Amer) > 60 Est GFR (Non-Af Amer) > 60 Random Glucose 127 H Calcium 9.0 Phosphorus 2.8 Magnesium 2.0 Total Bilirubin 2.4 H AST 243 H ALT 50 Alkaline Phosphatase 123 Total Creatine Kinase CK-MB (Mass) Troponin I Total Protein 9.7 H Albumin 4.9 Globulin 4.8 H Albumin/Globulin Ratio 1.0 Lipase Venous Blood Potassium Urine Color Urine Clarity Urine pH Ur Specific [place] Urine Protein Urine Glucose (UA) Urine Ketones Urine Blood Urine Nitrate Urine Bilirubin Urine Urobilinogen Ur Leukocyte Esterase Urine RBC (Auto) Urine Microscopic WBC Ur Squamous Epith Cells Fluid Type CSF Volume CSF Appearance CSF WBC CSF RBC CSF Total Cell Counted CSF Neutrophils CSF Lymphocytes CSF Monos/Macrophages CSF Glucose CSF Total Protein Urine Opiates Screen Urine Methadone Screen Ur Barbiturates Screen Ur Phencyclidine Scrn Ur Amphetamines Screen U Benzodiazepines Scrn U Oth Cocaine Metabols U Cannabinoids Screen Alcohol, Quantitative 06/27/17 06/27/17 06/27/17 04:04 04:06 04:49 WBC RBC Hgb Hct MCV MCH MCHC RDW Plt Count MPV Neut % (Auto) Lymph % (Auto) [place] % (Auto) Eos % (Auto) Baso % (Auto) Neut # Lymph # [place] # Eos # Baso # Neutrophils % (Manual) Lymphocytes % (Manual) Monocytes % (Manual) Platelet Estimate Large Platelets Stomatocytes PT INR APTT pO2 26 L VBG pH 7.43 VBG pCO2 45 VBG HCO3 27.4 VBG Total CO2 31.3 H VBG O2 Sat (Calc) 55.2 VBG Base Excess 4.8 H VBG Potassium 3.4 L A-a O2 Difference Glucose 133 H Lactate 2.0 FiO2 21.0 Crit Value Called To Crit Value Called By Crit Value Read Back Blood Gas Notified Time Sodium 134.0 Potassium Chloride 96.0 L Carbon Dioxide Anion Gap BUN Creatinine Est GFR ( Amer) Est GFR (Non-Af Amer) Random Glucose Calcium Phosphorus Magnesium Total Bilirubin AST ALT Alkaline Phosphatase Total Creatine Kinase CK-MB (Mass) Troponin I Total Protein Albumin Globulin Albumin/Globulin Ratio Lipase Venous Blood Potassium 3.4 L Urine Color Urine Clarity Urine pH Ur Specific [place] Urine Protein Urine Glucose (UA) Urine Ketones Urine Blood Urine Nitrate Urine Bilirubin Urine Urobilinogen Ur Leukocyte Esterase Urine RBC (Auto) Urine Microscopic WBC Ur Squamous Epith Cells Fluid Type Spinal fluid CSF Volume 3 H CSF Appearance Clear/colorless CSF WBC 1.0 CSF RBC 20.0 H CSF Total Cell Counted TEST NOT PERFORMED CSF Neutrophils 2 H CSF Lymphocytes 1.0 H CSF Monos/Macrophages 1 H CSF Glucose CSF Total Protein Urine Opiates Screen Urine Methadone Screen Ur Barbiturates Screen Ur Phencyclidine Scrn Ur Amphetamines Screen U Benzodiazepines Scrn U Oth Cocaine Metabols U Cannabinoids Screen Alcohol, Quantitative < 10 06/27/17 06/27/17 06/27/17 04:49 04:49 06:04 WBC RBC Hgb Hct MCV MCH MCHC RDW Plt Count MPV Neut % (Auto) Lymph % (Auto) [place] % (Auto) Eos % (Auto) Baso % (Auto) Neut # Lymph # [place] # Eos # Baso # Neutrophils % (Manual) Lymphocytes % (Manual) Monocytes % (Manual) Platelet Estimate Large Platelets Stomatocytes PT INR APTT pO2 VBG pH VBG pCO2 VBG HCO3 VBG Total CO2 VBG O2 Sat (Calc) VBG Base Excess VBG Potassium A-a O2 Difference Glucose Lactate FiO2 Crit Value Called To Crit Value Called By Crit Value Read Back Blood Gas Notified Time Sodium Potassium Chloride Carbon Dioxide Anion Gap BUN Creatinine Est GFR ( Amer) Est GFR (Non-Af Amer) Random Glucose Calcium Phosphorus Magnesium Total Bilirubin AST ALT Alkaline Phosphatase Total Creatine Kinase CK-MB (Mass) Troponin I Total Protein Albumin Globulin Albumin/Globulin Ratio Lipase Venous Blood Potassium Urine Color Yellow Urine Clarity Slighty-cloudy Urine pH 6.0 Ur Specific [place] 1.017 Urine Protein 100 Urine Glucose (UA) Neg Urine Ketones 20 Urine Blood Large Urine Nitrate Negative Urine Bilirubin Negative Urine Urobilinogen 0.2-1.0 Ur Leukocyte Esterase Neg Urine RBC (Auto) 1 Urine Microscopic WBC 1 Ur Squamous Epith Cells < 1 Fluid Type CSF Volume CSF Appearance CSF WBC CSF RBC CSF Total Cell Counted CSF Neutrophils CSF Lymphocytes CSF Monos/Macrophages CSF Glucose 72 H CSF Total Protein 60.0 Urine Opiates Screen Urine Methadone Screen Ur Barbiturates Screen Ur Phencyclidine Scrn Ur Amphetamines Screen U Benzodiazepines Scrn U Oth Cocaine Metabols U Cannabinoids Screen Alcohol, Quantitative 06/27/17 06/27/17 06/27/17 06:04 07:04 07:13 WBC RBC Hgb Hct MCV MCH MCHC RDW Plt Count MPV Neut % (Auto) Lymph % (Auto) [place] % (Auto) Eos % (Auto) Baso % (Auto) Neut # Lymph # [place] # Eos # Baso # Neutrophils % (Manual) Lymphocytes % (Manual) Monocytes % (Manual) Platelet Estimate Large Platelets Stomatocytes PT INR APTT pO2 42 VBG pH 7.41 VBG pCO2 41 VBG HCO3 25.3 VBG Total CO2 27.3 VBG O2 Sat (Calc) 82.2 H VBG Base Excess 1.2 VBG Potassium 3.5 L A-a O2 Difference 56.0 Glucose 120 H Lactate 1.0 FiO2 21.0 Crit Value Called To Dr bowen almanzar Crit Value Called By 15 Crit Value Read Back Y Blood Gas Notified Time 717 Sodium 134.0 Potassium Chloride 100.0 Carbon Dioxide Anion Gap BUN Creatinine Est GFR ( Amer) Est GFR (Non-Af Amer) Random Glucose Calcium Phosphorus Magnesium Total Bilirubin AST ALT Alkaline Phosphatase Total Creatine Kinase CK-MB (Mass) 38.9 H Troponin I Total Protein Albumin Globulin Albumin/Globulin Ratio Lipase Venous Blood Potassium 3.5 L Urine Color Urine Clarity Urine pH Ur Specific [place] Urine Protein Urine Glucose (UA) Urine Ketones Urine Blood Urine Nitrate Urine Bilirubin Urine Urobilinogen Ur Leukocyte Esterase Urine RBC (Auto) Urine Microscopic WBC Ur Squamous Epith Cells Fluid Type CSF Volume CSF Appearance CSF WBC CSF RBC CSF Total Cell Counted CSF Neutrophils CSF Lymphocytes CSF Monos/Macrophages CSF Glucose CSF Total Protein Urine Opiates Screen Negative Urine Methadone Screen Negative Ur Barbiturates Screen Negative Ur Phencyclidine Scrn Negative Ur Amphetamines Screen Negative U Benzodiazepines Scrn Negative U Oth Cocaine Metabols Negative U Cannabinoids Screen Negative Alcohol, Quantitative 06/27/17 06/27/17 08:28 08:28 WBC RBC Hgb Hct MCV MCH MCHC RDW Plt Count MPV Neut % (Auto) Lymph % (Auto) [place] % (Auto) Eos % (Auto) Baso % (Auto) Neut # Lymph # [place] # Eos # Baso # Neutrophils % (Manual) Lymphocytes % (Manual) Monocytes % (Manual) Platelet Estimate Large Platelets Stomatocytes PT INR APTT pO2 VBG pH VBG pCO2 VBG HCO3 VBG Total CO2 VBG O2 Sat (Calc) VBG Base Excess VBG Potassium A-a O2 Difference Glucose Lactate FiO2 Crit Value Called To Crit Value Called By Crit Value Read Back Blood Gas Notified Time Sodium Potassium Chloride Carbon Dioxide Anion Gap BUN Creatinine Est GFR ( Amer) Est GFR (Non-Af Amer) Random Glucose Calcium Phosphorus Magnesium Total Bilirubin AST ALT Alkaline Phosphatase Total Creatine Kinase 7006 H CK-MB (Mass) Troponin I 0.1250 H* Total Protein Albumin Globulin Albumin/Globulin Ratio Lipase 31 Venous Blood Potassium Urine Color Urine Clarity Urine pH Ur Specific [place] Urine Protein Urine Glucose (UA) Urine Ketones Urine Blood Urine Nitrate Urine Bilirubin Urine Urobilinogen Ur Leukocyte Esterase Urine RBC (Auto) Urine Microscopic WBC Ur Squamous Epith Cells Fluid Type CSF Volume CSF Appearance CSF WBC CSF RBC CSF Total Cell Counted CSF Neutrophils CSF Lymphocytes CSF Monos/Macrophages CSF Glucose CSF Total Protein Urine Opiates Screen Urine Methadone Screen Ur Barbiturates Screen Ur Phencyclidine Scrn Ur Amphetamines Screen U Benzodiazepines Scrn U Oth Cocaine Metabols U Cannabinoids Screen Alcohol, Quantitative EKG/Cardiology Studies: EKG: Sinus tachy 115/min, poor technical study. Review of Systems - Review of Systems Systems not reviewed;Unavailable: Intoxicated Critical Care Progress Note - Nutrition Nutrition: Nutrition Category Date Time Status NPO Diet [DIET] Diets 06/27/17 Lunch Active
--- NOTE | 2017-06-27 17:34 | CARD ---
APPROVED REPORT EXAM: Two-dimensional and M-mode echocardiogram with Doppler and color Doppler. Other Information Quality : GoodRhythm : NSR INDICATION Cardiomyopathy 2D DIMENSIONS IVSd1.17 (0.7-1.1cm)LVDd3.96 (3.9-5.9cm) LVOT Diameter2.39 (1.8-2.4cm)PWd1.37 (0.7-1.1cm) IVSs1.38 (0.8-1.2cm)LVDs2.92 (2.5-4.0cm) FS (%) 26.1 %PWs1.47 (0.8-1.2cm) M-Mode DIMENSIONS Left Atrium (MM)3.38 (2.5-4.0cm)IVSd1.47 (0.7-1.1cm) Aortic Root3.47 (2.2-3.7cm)LVDd4.94 (4.0-5.6cm) Aortic Cusp Exc.2.15 (1.5-2.0cm)PWd0.94 (0.7-1.1cm) IVSs1.88 cmFS (%) 29 % LVDs3.50 (2.0-3.8cm)PWs1.21 cm Mitral Valve MV E Xgwepqjc76.1cm/sMV DECEL [id number] A Cuxmfqwq59.7cm/s MV INL60iuM/A ratio1.3MVA (PHT)3.74cm2 TDI Lateral E' Peak V12.14cm/sMedial E' Peak V7.99cm/sE/Lateral E'6.6 E/Medial E'10.0 Tricuspid Valve TR Peak Pnybkyov697gr/sRAP [id number] Peak Gr.37mmHg [id number] LEFT VENTRICLE The left ventricle is normal size. There is mild concentric left ventricular hypertrophy. The left ventricular function is normal. The left ventricular ejection fraction is 60% There is normal LV segmental wall motion. The left ventricular diastolic function is normal. No left ventricle thrombus noted on this study. There is no ventricular septal defect visualized. There is no left ventricular aneurysm. There is no mass noted in the left ventricle. RIGHT VENTRICLE The right ventricle is normal size. There is normal right ventricular wall thickness. The right ventricular systolic function is normal. ATRIA The left atrium size is normal. The right atrium size is normal. The interatrial septum is intact with no evidence for an atrial septal defect. AORTIC VALVE The aortic valve is normal in structure. No aortic regurgitation is present. There is no aortic valvular stenosis. There is no aortic valvular vegetation. MITRAL VALVE The mitral valve is normal in structure. There is no evidence of mitral valve prolapse. There is no mitral valve stenosis. There is no mitral valve regurgitation noted. TRICUSPID VALVE The tricuspid valve is normal in structure. There is no tricuspid valve regurgitation noted. There is no tricuspid valve prolapse or vegetation. There is no tricuspid valve stenosis. PULMONIC VALVE The pulmonary valve is normal in structure. There is no pulmonic valvular regurgitation. There is no pulmonic valvular stenosis. GREAT VESSELS The aortic root is normal in size. The ascending aorta is normal in size. The IVC is normal in size and collapses >50% with inspiration. PERICARDIAL EFFUSION The pericardium appears normal. There is no pleural effusion. <Conclusion> Normal LV Systolic Function Mild Concentric LVH
--- NOTE | 2017-06-27 17:39 | CARD ---
APPROVED REPORT EKG Measurement Heart [id number] <Conclusion> Sinus rhythm with premature atrial complexes Prolonged QT Abnormal ECG
--- NOTE | 2017-06-27 17:42 | CARD ---
APPROVED REPORT EKG Measurement Heart [id number] <Conclusion> Sinus tachycardia ST & T wave abnormality, consider inferior ischemia Abnormal ECG
[2017-06-28] MEDS: Dexmedetomidine Hydrochloride 400 MCG in Sodium Chloride 0.9% 96 ML IV SCH ×3 (03:01→10:47)
[2017-06-28] MEDS: Sodium Chloride 0.9% 1,000 ML IV SCH (03:51)
[2017-06-28 06:19] LABS: BASO # 0.1 K/uL (0.0-0.2); BASO % 0.6 % (0.0-2.0); EOS % 0.1 % (0.0-4.0); HEMATOCRIT 39.1 % (35.0-51.0); LYMPH # 0.6 K/uL (1.0-4.3); LYMPH % 6.6 % (20.0-40.0); MEAN CORPUSCULAR HEMOGLOBIN 33.3 pg (27.0-31.0); MEAN CORPUSCULAR HGB CONC 34.3 g/dL (33.0-37.0); MEAN PLATELET VOLUME 9.8 fl (7.2-11.7); MONO # 0.9 K/uL (0.0-0.8); MONO % 9.3 % (0.0-10.0); NEUT # 8.1 K/uL (1.8-7.0); NEUT % 83.4 % (50.0-75.0); RED CELL DISTRIBUTION WIDTH 13.3 % (11.5-14.5); WHITE BLOOD COUNT 9.7 K/uL (4.8-10.8)
[2017-06-28 06:54] LABS: ALKALINE PHOSPHATASE 81 U/L (38-126); ALT/SGPT 40 U/L (21-72); AST/SGOT 137 U/L (17-59); BILIRUBIN,TOTAL 1.5 mg/dl (0.2-1.3); BLOOD UREA NITROGEN 14 mg/dl (9-20); CALCIUM 7.2 mg/dL (8.4-10.2); CARBON DIOXIDE 26 mmol/L (22-30); CHLORIDE 103 mmol/L (98-107); GFR AFRICAN-AMERICAN > 60; GLUCOSE,RANDOM 92 mg/dL (75-110); MAGNESIUM 1.9 MG/DL (1.6-2.3); PHOSPHOROUS 2.3 mg/dl (2.5-4.5); POTASSIUM 3.4 MMOL/L (3.6-5.0); SODIUM 136 mmol/l (132-148); TOTAL PROTEIN 7.4 G/DL (6.3-8.2)
[2017-06-28] MEDS ORDERED: Thiamine 100 mg/ml Inj IM ONE (09:00)
[2017-06-28 09:19] LABS: HEMATOCRIT 39.2 % (35.0-51.0); MEAN CELL VOLUME 96.2 fl (80.0-94.0); MEAN CORPUSCULAR HEMOGLOBIN 33.3 pg (27.0-31.0); MEAN CORPUSCULAR HGB CONC 34.6 g/dL (33.0-37.0); RED CELL DISTRIBUTION WIDTH 13.2 % (11.5-14.5); WHITE BLOOD COUNT 9.2 K/uL (4.8-10.8)
[2017-06-28] MEDS ORDERED: Multivitamin (MVI) 10 ML, Thiamine 100 MG in Dextrose 5%/0.45% NS 1,000 ML IV ONE (09:20)
[2017-06-28] MEDS: Multiple Vitamins Oral Solution PO SCH (09:42)
[2017-06-28] MEDS: Enoxaparin 40 mg Syringe SC SCH (09:46)
[2017-06-28] MEDS ORDERED: Potassium Phosphate 15 MMOLE in Dextrose 5% In Water 250 ML IV ONE (11:30)
--- NOTE | 2017-06-28 12:37 | CP.CCUPN ---
CCU Subjective - Physician Review Events Since Last Encounter (Free Text): 06/28/17 12:36 sedated CCU Objective - Vital Signs / Intake & Output Vital Signs (Last 4 hours): Vital Signs Temp Pulse Resp BP Pulse Ox 06/28/17 12:00 98.7 F 60 22 152/83 H 100 06/28/17 11:00 62 26 H 158/92 H 97 06/28/17 10:00 61 22 164/90 H 99 06/28/17 09:00 61 22 153/47 H 99 Intake and Output (Last 8hrs): Intake & Output 06/27/17 06/28/17 06/28/17 22:59 06:59 14:59 Intake Total 2689.9 1790 200 Output Total 500 900 Balance 2189.9 890 200 Intake: IV 2359.9 1790 100 Intake, Piggyback 100 Oral 330 0 Output: Urine 500 900 Urethral (Cole) 500 Urine, Voided 900 - Physical Exam Head: Positive for: Atraumatic, Normocephalic Pupils: Positive for: PERRL Extroacular Muscles: Positive for: EOMI Mouth: Positive for: Dry Neck: Positive for: Normal Range of Motion. Negative for: JVD Respiratory/Chest: Positive for: Decreased Breath Sounds. Negative for: Accessory Muscle Use, Wheezes Cardiovascular: Positive for: Regular Rate and Rhythm, Tachycardic. Negative for: Murmurs, Rub Abdomen: Positive for: Normal Bowel Sounds. Negative for: Tenderness, Distention, Mass/Organomegaly Lower Extremity: Positive for: Edema, Erythema Neurological: Positive for: Motor Func Grossly Intact, Normal Sensory Function Skin: Positive for: Warm, Dry. Negative for: Rashes Psychiatric: Positive for: Intoxicated - Medications Active Medications: Active Medications Generic Name Dose Route Start Last Admin Trade Name Freq PRN Reason Stop Dose Admin Chlordiazepoxide 50 mg 06/27/17 09:00 06/28/17 09:41 Librium PO Not Given Q8 [facility] Enoxaparin Sodium 40 mg 06/27/17 09:00 06/28/17 09:46 Lovenox SC 40 mg DAILY [facility] Administration Protocol Folic Acid 1 mg 06/27/17 09:00 06/28/17 12:06 Folic Acid PO Not Given DAILY [facility] Sodium Chloride 1,000 mls @ 150 mls/hr 06/27/17 09:00 06/28/17 03:51 Sodium Chloride 0.9% IV 150 mls/hr .Q6H40M JAY Administration Dexmedetomidine HCl 400 mcg/ 100 mls @ 4.53 mls/hr 06/27/17 10:30 06/28/17 10 :47 Sodium Chloride IV 1.4 mcg/kg/hr .Q22H5M JAY 31.75 mls/hr Protocol Administration 0.2 MCG/KG/HR Multivitamins/Vitamin C 10 ml/ 1,011 mls @ 100 mls/hr 06/28/17 09:20 10:43 Thiamine HCl 100 mg/ Dextrose IV 06/28/17 19:26 100 mls/hr /Sodium Chloride .Q10H7M ONE Administration Potassium Phosphate 15 mmole/ 255 mls @ 84 mls/hr 06/28/17 11:30 Dextrose IV 06/28/17 14:32 .Q3H3M ONE Lorazepam 1 mg 06/27/17 08:33 Ativan PO Q3 PRN ALCOHOL WITHDRAWAL SYMPTOMS: Lorazepam 2 mg 06/28/17 00:57 06/28/17 11:35 Ativan IVP 2 mg Q2H PRN Administration Agitation Multivitamins/Vitamin C 5 ml 06/27/17 09:00 06/28/17 09:42 Multi-Delyn Liquid PO Not Given DAILY JAY Thiamine HCl 100 mg 06/27/17 09:00 06/28/17 12:07 Vitamin B1 Tab PO Not Given DAILY JAY - Patient Studies Lab Studies: Microbiology Studies 06/27/17 07:36 Urine Culture - Final Urine No Growth (<1,000 CFU/ML) 06/27/17 04:29 Gram Stain - Final Cerebral Spinal Fluid CSF Culture - Preliminary NO GROWTH AFTER 24 HOURS 06/27/17 03:50 Blood Culture - Preliminary Blood NO GROWTH AFTER 24 HOURS 06/27/17 04:20 Blood Culture - Preliminary Blood NO GROWTH AFTER 24 HOURS Lab Studies 06/28/17 06/28/17 06/28/17 Range/Units 11: 08:00 06:02 WBC 9.2 (4.8-10.8) K/uL RBC 4.08 L (4.40-5.90) Mil/uL Hgb 13.6 (12.0-18.0) g/dL Hct 39.2 (35.0-51.0) % MCV 96.2 H (80.0-94.0) fl MCH 33.3 H (27.0-31.0) pg MCHC 34.6 (33.0-37.0) g/dL RDW 13.2 (11.5-14.5) % Plt Count 95 L (130-400) K/uL MPV (7.2-11.7) fl Neut % (Auto) (50.0-75.0) % Lymph % (Auto) (20.0-40.0) % King % (Auto) (0.0-10.0) % Eos % (Auto) (0.0-4.0) % Baso % (Auto) (0.0-2.0) % Neut # (1.8-7.0) K/uL Lymph # (1.0-4.3) K/uL King # (0.0-0.8) K/uL Eos # (0.0-0.7) K/uL Baso # (0.0-0.2) K/uL Sodium (132-148) mmol/l Potassium (3.6-5.0) MMOL/L Chloride (98-107) mmol/L Carbon Dioxide (22-30) mmol/L Anion Gap (10-20) BUN (9-20) mg/dl Creatinine (0.8-1.5) mg/dl Est GFR ( Amer) Est GFR (Non-Af Amer) POC Glucose (mg/dL) 100 72 (65-110) mg/dL Random Glucose (75-110) mg/dL Calcium (8.4-10.2) mg/dL Phosphorus (2.5-4.5) mg/dl Magnesium (1.6-2.3) MG/DL Total Bilirubin (0.2-1.3) mg/dl AST (17-59) U/L ALT (21-72) U/L Alkaline Phosphatase (38-126) U/L Troponin I (0.00-0.120) ng/mL Total Protein (6.3-8.2) G/DL Albumin (3.5-5.0) g/dL Globulin (2.2-3.9) gm/dL Albumin/Globulin Ratio (1.0-2.1) Procalcitonin (0.19-0.49) NG/ML 06/28/17 06/28/17 06/27/17 Range/Units 05:30 05:30 22:10 WBC 9.7 (4.8-10.8) K/uL RBC 4.03 L (4.40-5.90) Mil/uL Hgb 13.4 (12.0-18.0) g/dL Hct 39.1 (35.0-51.0) % MCV 97.0 H D (80.0-94.0) fl MCH 33.3 H (27.0-31.0) pg MCHC 34.3 (33.0-37.0) g/dL RDW 13.3 (11.5-14.5) % Plt Count 93 L D (130-400) K/uL MPV 9.8 (7.2-11.7) fl Neut % (Auto) 83.4 H (50.0-75.0) % Lymph % (Auto) 6.6 L (20.0-40.0) % King % (Auto) 9.3 (0.0-10.0) % Eos % (Auto) 0.1 (0.0-4.0) % Baso % (Auto) 0.6 (0.0-2.0) % Neut # 8.1 H (1.8-7.0) K/uL Lymph # 0.6 L (1.0-4.3) K/uL King # 0.9 H (0.0-0.8) K/uL Eos # 0.0 (0.0-0.7) K/uL Baso # 0.1 (0.0-0.2) K/uL Sodium 136 (132-148) mmol/l Potassium 3.4 L (3.6-5.0) MMOL/L Chloride 103 (98-107) mmol/L Carbon Dioxide 26 (22-30) mmol/L Anion Gap 10 (10-20) BUN 14 (9-20) mg/dl Creatinine 0.7 L (0.8-1.5) mg/dl Est GFR ( Amer) > 60 Est GFR (Non-Af Amer) > 60 POC Glucose (mg/dL) 160 H (65-110) mg/dL Random Glucose 92 (75-110) mg/dL Calcium 7.2 L (8.4-10.2) mg/dL Phosphorus 2.3 L (2.5-4.5) mg/dl Magnesium 1.9 (1.6-2.3) MG/DL Total Bilirubin 1.5 H (0.2-1.3) mg/dl AST 137 H D (17-59) U/L ALT 40 (21-72) U/L Alkaline Phosphatase 81 (38-126) U/L Troponin I (0.00-0.120) ng/mL Total Protein 7.4 (6.3-8.2) G/DL Albumin 3.7 (3.5-5.0) g/dL Globulin 3.7 (2.2-3.9) gm/dL Albumin/Globulin Ratio 1.0 (1.0-2.1) Procalcitonin (0.19-0.49) NG/ML 06/27/17 06/27/17 06/27/17 Range/Units 21:40 14:56 13:04 WBC (4.8-10.8) K/uL RBC (4.40-5.90) Mil/uL Hgb (12.0-18.0) g/dL Hct (35.0-51.0) % MCV (80.0-94.0) fl MCH (27.0-31.0) pg MCHC (33.0-37.0) g/dL RDW (11.5-14.5) % Plt Count (130-400) K/uL MPV (7.2-11.7) fl Neut % (Auto) (50.0-75.0) % Lymph % (Auto) (20.0-40.0) % King % (Auto) (0.0-10.0) % Eos % (Auto) (0.0-4.0) % Baso % (Auto) (0.0-2.0) % Neut # (1.8-7.0) K/uL Lymph # (1.0-4.3) K/uL King # (0.0-0.8) K/uL Eos # (0.0-0.7) K/uL Baso # (0.0-0.2) K/uL Sodium (132-148) mmol/l Potassium (3.6-5.0) MMOL/L Chloride (98-107) mmol/L Carbon Dioxide (22-30) mmol/L Anion Gap (10-20) BUN (9-20) mg/dl Creatinine (0.8-1.5) mg/dl Est GFR ( Amer) Est GFR (Non-Af Amer) POC Glucose (mg/dL) 144 H (65-110) mg/dL Random Glucose (75-110) mg/dL Calcium (8.4-10.2) mg/dL Phosphorus (2.5-4.5) mg/dl Magnesium (1.6-2.3) MG/DL Total Bilirubin (0.2-1.3) mg/dl AST (17-59) U/L ALT (21-72) U/L Alkaline Phosphatase (38-126) U/L Troponin I 0.0560 0.0650 (0.00-0.120) ng/mL Total Protein (6.3-8.2) G/DL Albumin (3.5-5.0) g/dL Globulin (2.2-3.9) gm/dL Albumin/Globulin Ratio (1.0-2.1) Procalcitonin (0.19-0.49) NG/ML 06/27/17 06/27/17 Range/Units 08:50 03:50 WBC (4.8-10.8) K/uL RBC (4.40-5.90) Mil/uL Hgb (12.0-18.0) g/dL Hct (35.0-51.0) % MCV (80.0-94.0) fl MCH (27.0-31.0) pg MCHC (33.0-37.0) g/dL RDW (11.5-14.5) % Plt Count (130-400) K/uL MPV (7.2-11.7) fl Neut % (Auto) (50.0-75.0) % Lymph % (Auto) (20.0-40.0) % King % (Auto) (0.0-10.0) % Eos % (Auto) (0.0-4.0) % Baso % (Auto) (0.0-2.0) % Neut # (1.8-7.0) K/uL Lymph # (1.0-4.3) K/uL King # (0.0-0.8) K/uL Eos # (0.0-0.7) K/uL Baso # (0.0-0.2) K/uL Sodium (132-148) mmol/l Potassium (3.6-5.0) MMOL/L Chloride (98-107) mmol/L Carbon Dioxide (22-30) mmol/L Anion Gap (10-20) BUN (9-20) mg/dl Creatinine (0.8-1.5) mg/dl Est GFR ( Amer) Est GFR (Non-Af Amer) POC Glucose (mg/dL) 118 H (65-110) mg/dL Random Glucose (75-110) mg/dL Calcium (8.4-10.2) mg/dL Phosphorus (2.5-4.5) mg/dl Magnesium (1.6-2.3) MG/DL Total Bilirubin (0.2-1.3) mg/dl AST (17-59) U/L ALT (21-72) U/L Alkaline Phosphatase (38-126) U/L Troponin I (0.00-0.120) ng/mL Total Protein (6.3-8.2) G/DL Albumin (3.5-5.0) g/dL Globulin (2.2-3.9) gm/dL Albumin/Globulin Ratio (1.0-2.1) Procalcitonin 0.11 L (0.19-0.49) NG/ML Laboratory Results - last 24 hr 06/27/17 06/27/17 06/27/17 03:50 08:50 13:04 WBC RBC Hgb Hct MCV MCH MCHC RDW Plt Count MPV Neut % (Auto) Lymph % (Auto) King % (Auto) Eos % (Auto) Baso % (Auto) Neut # Lymph # King # Eos # Baso # Sodium Potassium Chloride Carbon Dioxide Anion Gap BUN Creatinine Est GFR ( Amer) Est GFR (Non-Af Amer) POC Glucose (mg/dL) 118 H 144 H Random Glucose Calcium Phosphorus Magnesium Total Bilirubin AST ALT Alkaline Phosphatase Troponin I Total Protein Albumin Globulin Albumin/Globulin Ratio Procalcitonin 0.11 L 06/27/17 06/27/17 06/27/17 14:56 21:40 22:10 WBC RBC Hgb Hct MCV MCH MCHC RDW Plt Count MPV Neut % (Auto) Lymph % (Auto) King % (Auto) Eos % (Auto) Baso % (Auto) Neut # Lymph # King # Eos # Baso # Sodium Potassium Chloride Carbon Dioxide Anion Gap BUN Creatinine Est GFR ( Amer) Est GFR (Non-Af Amer) POC Glucose (mg/dL) 160 H Random Glucose Calcium Phosphorus Magnesium Total Bilirubin AST ALT Alkaline Phosphatase Troponin I 0.0650 0.0560 Total Protein Albumin Globulin Albumin/Globulin Ratio Procalcitonin 06/28/17 06/28/17 06/28/17 05:30 05:30 06:02 WBC 9.7 RBC 4.03 L Hgb 13.4 Hct 39.1 MCV 97.0 H D MCH 33.3 H MCHC 34.3 RDW 13.3 Plt Count 93 L D MPV 9.8 Neut % (Auto) 83.4 H Lymph % (Auto) 6.6 L King % (Auto) 9.3 Eos % (Auto) 0.1 Baso % (Auto) 0.6 Neut # 8.1 H Lymph # 0.6 L King # 0.9 H Eos # 0.0 Baso # 0.1 Sodium 136 Potassium 3.4 L Chloride 103 Carbon Dioxide 26 Anion Gap 10 BUN 14 Creatinine 0.7 L Est GFR ( Amer) > 60 Est GFR (Non-Af Amer) > 60 POC Glucose (mg/dL) 72 Random Glucose 92 Calcium 7.2 L Phosphorus 2.3 L Magnesium 1.9 Total Bilirubin 1.5 H AST 137 H D ALT 40 Alkaline Phosphatase 81 Troponin I Total Protein 7.4 Albumin 3.7 Globulin 3.7 Albumin/Globulin Ratio 1.0 Procalcitonin 06/28/17 06/28/17 08:00 11:19 WBC 9.2 RBC 4.08 L Hgb 13.6 Hct 39.2 MCV 96.2 H MCH 33.3 H MCHC 34.6 RDW 13.2 Plt Count 95 L MPV Neut % (Auto) Lymph % (Auto) King % (Auto) Eos % (Auto) Baso % (Auto) Neut # Lymph # King # Eos # Baso # Sodium Potassium Chloride Carbon Dioxide Anion Gap BUN Creatinine Est GFR ( Amer) Est GFR (Non-Af Amer) POC Glucose (mg/dL) 100 Random Glucose Calcium Phosphorus Magnesium Total Bilirubin AST ALT Alkaline Phosphatase Troponin I Total Protein Albumin Globulin Albumin/Globulin Ratio Procalcitonin Fingerstick Blood Sugar Results: 100 Review of Systems - Review of Systems Systems not reviewed;Unavailable: Altered Mental Status Critical Care Progress Note - Nutrition Nutrition: Nutrition Category Date Time Status NPO Diet [DIET] Diets 06/27/17 Lunch Active Assessment/Plan (1) Alcohol withdrawal Assessment and plan: 62yo M. PMHx ETOH abuse. p/w ETOH withdrawal, with signs of delirium tremens. Neuro: still withdrawing with severe delirium, CIWA with Ativan and precedex gtt Pulm: no acute issues, breathing spontaneously with nasal canula oxygen CV: hemodynamically stable Hem: no acute issues Renal: Banana bag, D51/2NS+MVI+Thiamine+Folate@100 Endo: no acute issues GI: NPO ID: no acute issues DVT proph - lovenox GI proph - not currently indicated cole for strict I/O's during acute illness Code status - full code Current Visit: Yes Status: Acute
--- NOTE | 2017-06-28 14:43 | CP.PCM.PN ---
Subjective - Date & Time of Evaluation Date of Evaluation: 06/28/17 Time of Evaluation: 14:00 - Subjective Subjective: Pt is sedated on Precedex drip No fever today He is on 1:1 episodes of agitation, confused as per staff Objective - Vital Signs/Intake and Output Vital Signs (last 24 hours): Temp Pulse Resp BP Pulse Ox 98.7 F 60 22 152/83 H 100 06/28/17 12:00 06/28/17 12:00 06/28/17 12:00 06/28/17 12:00 06/28/17 12:00 Intake and Output: 06/28/17 06/28/17 06:59 18:59 Intake Total 2729.9 450 Output Total 900 Balance 1829.9 450 - Medications Medications: Current Medications Chlordiazepoxide (Librium) 50 mg PO Q8 [facility] Last Admin: 06/28/17 09:41 Dose: Not Given Enoxaparin Sodium (Lovenox) 40 mg SC DAILY [facility] PRN Reason: Protocol Last Admin: 06/28/17 09:46 Dose: 40 mg Folic Acid (Folic Acid) 1 mg PO DAILY [facility] Last Admin: 06/28/17 12:06 Dose: Not Given Sodium Chloride (Sodium Chloride 0.9%) 1,000 mls @ 150 mls/hr IV .Q6H40M [facility] Last Admin: 06/28/17 03:51 Dose: 150 mls/hr Dexmedetomidine HCl 400 mcg/ (Sodium Chloride) 100 mls @ 4.53 mls/hr IV .Q22H5M JAY; 0.2 MCG/KG/HR PRN Reason: Protocol Last Admin: 06/28/17 10:47 Dose: 1.4 mcg/kg/hr, 31.75 mls/hr Multivitamins/Vitamin C 10 ml/Thiamine HCl 100 mg/ Dextrose /Sodium Chloride 1, 011 mls @ 100 mls/hr IV .Q10H7M ONE Stop: 06/28/17 19:26 Last Admin: 06/28/17 10:43 Dose: 100 mls/hr Lorazepam (Ativan) 2 mg IVP Q2H PRN PRN Reason: Agitation Last Admin: 06/28/17 14:09 Dose: 2 mg Multivitamins/Vitamin C (Multi-Delyn Liquid) 5 ml PO DAILY [facility] Last Admin: 06/28/17 09:42 Dose: Not Given Thiamine HCl (Vitamin B1 Tab) 100 mg PO DAILY JAY Last Admin: 06/28/17 12:07 Dose: Not Given - Labs Labs: 06/28/17 08:00 06/28/17 05:30 PT 13.1 Seconds (9.8-13.1) 06/27/17 03:58 INR 1.2 (0.9-1.2) 06/27/17 03:58 APTT 32.6 Seconds (25.6-37.1) 06/27/17 03:58 Assessment and Plan - Assessment and Plan (Free Text) Assessment: 62 y/o male who was brought to the ED by EMS after he was found outside [place] confused and disoriented. Per ER report, Patient states he drank beer but had vodka on his person. Patient found to be altered, temp 102 . LP performed in ER. CXR cardiomegaly, EKG sinus tach, CT head neg, CSF : ceel ct normal, gram stain NEG Patient was admitted to ICU for progressively worsening alcohol withdrawal, delirium tremens. 1. Altered mental status likely secondary to DTs LP performed in the ER, CSF Gram stain negative, cell Count : neg drug screen negative, ETOH neg rule out infection: no WBC, UA negative, lipase negative, chest x-ray no acute pathology, procalcitonin normal fever likely due to withdrawal 2. Delirium tremens EtOH less than 10 patient presented with disorientation, tachycardia, hypertension, hallucinations, hyperthermia - Started on Precedex drip in ICU - Ativan prn - Thiamine IV 3. Rhabdomyolysis CK levels 7006 Continue normal saline repeat CK levels 4. Azotemia elevated BUN Continue normal saline 5. Elevated troponin, mild Troponin 0.12 , w/c trended down to nortmla immediately No evidence of ischemia or infarct on EKG ECHO:normal wall motion and LV function 6. Transaminitis sec to Alcohol 7. Thrombocytopenia sec to ETOH DVT prophylaxis Lovenox
[2017-06-28] MEDS ORDERED: Etomidate 20 mg/10ml Inj IV ONE ×2 (16:11→16:12)
[2017-06-28] MEDS ORDERED: Chlorhexidine Gluconate 1 APPL/PKT TP ONE (16:18)
[2017-06-28] MEDS: Propofol 10 mg/ml 1,000 MG/100 ML VIAL IV SCH ×3 (16:30→21:22)
[2017-06-28] MEDS ORDERED: Propofol 10 mg/ml Inj (20 ML) IV ONE ×2 (17:01→17:02)
--- NOTE | 2017-06-28 17:31 | PCM.PROC ---
Procedures Attestation:: I certify that I have explained the specified Operation(s) or Procedure(s), risks, benefits and reasonable alternatives to the Patient and/or other person responsible. The opportunity was given to ask questions and all questions answered - Intubation Time Out Performed: Yes Sedative: Etomidate, Other (propofol) Laryngoscope: Glidescope ET Tube Size: 8.0 ET Tube Uncuffed: No (cuffed) ET Tube Secured at Depth: 23 cm ET Tube Secured Locarion: Lips ET Tube Placement Confirmation: Visualized Passing Through Cords, Breath Sounds Equal Bilaterally, No Breath Sounds Over Epigastrum, Confirmation w/Capnometry Patient Tolerated Procedure: Well Procedure Immediate Complications: None
[2017-06-28 18:04] LABS: ABG ALLEN TEST YES; ABG MECHANICAL RATE 12; ARTERIAL BLOOD GAS HCO3 24.9 mmol/L (21-28); ARTERIAL BLOOD GAS MODE PRVC/AC; ARTERIAL BLOOD GAS O2 CAPACITY 19.3 mL/dL (16-24); ARTERIAL BLOOD GAS PH 7.38 (7.35-7.45); ARTERIAL BLOOD GAS PO2 218 mm/Hg (80-100); ARTERIAL BLOOD HGB O2 SAT 96.4 % (95.0-98.0); ATERIAL BLOOD GAS PEEP 5; CARBOXYHEMOGLOBIN 1.8 % (0.5-1.5); HHB 1.3 % (0.0-5.0); METHEMOGLOBIN 0.6 % (0.0-3.0)
--- NOTE | 2017-06-28 18:10 | RAD ---
HISTORY: post intubation COMPARISON: Chest radiograph 06/27/2017. FINDINGS: LUNGS: Patient's been intubated with the tip terminating at the lower trachea several cm above the rex. Perihilar infiltrates extends to the periphery of the mid lung nur bilaterally and mildly also affect the bases suspicious for CHF. Hypervascular markings are suggested and Loyda B-lines suggested at least at the left lateral chest mid and inferior lung zones. No alveolitis is not excluded separate from potential CHF. Clinically correlate further. PLEURA: No significant pleural effusion identified, no pneumothorax apparent. CARDIOVASCULAR: Cardiomegaly again evident. CHF pattern suspected as described above. OSSEOUS STRUCTURES: No significant abnormalities. VISUALIZED UPPER ABDOMEN: Normal. OTHER FINDINGS: None. IMPRESSION: Active CHF suspected with underlying infiltrates not excluded bilaterally. Continued clinical and radiographic monitor advised.
[2017-06-28] MEDS ORDERED: Potassium Chloride 20 MEQ in Dextrose 5%/0.9% NS 1,000 ML IV SCH (20:30)
[2017-06-28] MEDS: Potassium Chl 20 mEq in D5-NS 1,000 ML IV SCH (21:20)
[2017-06-29] MEDS: Propofol 10 mg/ml 1,000 MG/100 ML VIAL IV SCH ×5 (04:07→23:56)
[2017-06-29 04:30] LABS: ABG ALLEN TEST YES; ABG MECHANICAL RATE 12; ARTERIAL BLOOD GAS HCO3 26.9 mmol/L (21-28); ARTERIAL BLOOD GAS MODE A/C; ARTERIAL BLOOD GAS O2 CAPACITY 17.8 mL/dL (16-24); ARTERIAL BLOOD GAS O2 CONTENT 17.5 ML/dL (15-23); ARTERIAL BLOOD GAS PH 7.47 (7.35-7.45); ARTERIAL BLOOD GAS PO2 132 mm/Hg (80-100); ARTERIAL BLOOD HGB O2 SAT 96.1 % (95.0-98.0); ATERIAL BLOOD GAS PEEP 5; CARBOXYHEMOGLOBIN 1.1 % (0.5-1.5); HHB 1.9 % (0.0-5.0); METHEMOGLOBIN 0.9 % (0.0-3.0)
[2017-06-29] MEDS: Potassium Chl 20 mEq in D5-NS 1,000 ML IV SCH (05:10)
[2017-06-29 06:17] LABS: BASO % 0.4 % (0.0-2.0); EOS # 0.1 K/uL (0.0-0.7); EOS % 1.6 % (0.0-4.0); HEMATOCRIT 37.3 % (35.0-51.0); LYMPH # 0.5 K/uL (1.0-4.3); LYMPH % 9.2 % (20.0-40.0); MEAN CELL VOLUME 98.2 fl (80.0-94.0); MEAN CORPUSCULAR HEMOGLOBIN 32.8 pg (27.0-31.0); MEAN CORPUSCULAR HGB CONC 33.4 g/dL (33.0-37.0); MONO # 0.8 K/uL (0.0-0.8); MONO % 13.6 % (0.0-10.0); NEUT # 4.2 K/uL (1.8-7.0); NEUT % 75.2 % (50.0-75.0); RED CELL DISTRIBUTION WIDTH 13.4 % (11.5-14.5); WHITE BLOOD COUNT 5.6 K/uL (4.8-10.8)
[2017-06-29 06:27] LABS: ALB/GLOB RATIO 0.9 (1.0-2.1); ALKALINE PHOSPHATASE 73 U/L (38-126); ALT/SGPT 36 U/L (21-72); AST/SGOT 84 U/L (17-59); BILIRUBIN,TOTAL 1.3 mg/dl (0.2-1.3); BLOOD UREA NITROGEN 11 mg/dl (9-20); CALCIUM 6.8 mg/dL (8.4-10.2); CARBON DIOXIDE 27 mmol/L (22-30); CHLORIDE 103 mmol/L (98-107); GFR AFRICAN-AMERICAN > 60; GLUCOSE,RANDOM 108 mg/dL (75-110); POTASSIUM 2.9 MMOL/L (3.6-5.0); SODIUM 138 mmol/l (132-148); TOTAL PROTEIN 6.4 G/DL (6.3-8.2)
[2017-06-29] MEDS ORDERED: Midazolam 5 MG/ML 50 MG in Dextrose 5% In Water 90 ML IV ONE (08:30)
[2017-06-29] MEDS ORDERED: Multivitamin With Minerals Tab PO SCH (09:00)
--- NOTE | 2017-06-29 09:06 | RAD ---
HISTORY: intubated COMPARISON: Portable chest 06/28/2017 FINDINGS: Endotracheal tube is unchanged in position. LUNGS: Left perihilar patchy density is diminished with left basilar opacity slightly increased, now silhouetting left hemidiaphragm. Right-sided airspace disease unchanged. PLEURA: Small pleural effusions not excluded. None is seen the right. No pneumothorax bilaterally. CARDIOVASCULAR: Cardiomegaly persists though pulmonary vascular pattern appears diminishing. OSSEOUS STRUCTURES: No significant abnormalities. VISUALIZED UPPER ABDOMEN: Normal. OTHER FINDINGS: None. IMPRESSION: Persistent CHF pattern with underlying infiltrates not excluded once again, increase in left base otherwise diminished at the left perihilar region. Right sided airspace disease unchanged. Continued clinical and radiographic monitoring advised.
--- NOTE | 2017-06-29 10:17 | CP.PCM.PN ---
Subjective - Date & Time of Evaluation Date of Evaluation: 06/29/17 Time of Evaluation: 09:30 - Subjective Subjective: Pt was intubated yesterday for airway protection Sedated on Versed and Propofol drip occ opens eyes and moans, moves all extremities Archer cath in place , good output low grade fever temp 100F Objective - Vital Signs/Intake and Output Vital Signs (last 24 hours): Temp Pulse Resp BP Pulse Ox 98.7 F 52 L 16 125/80 100 06/29/17 04:00 06/29/17 07:00 06/29/17 07:00 06/29/17 07:00 06/29/17 07:00 Intake and Output: 06/29/17 06/29/17 06:59 18:59 Intake Total 3769 Output Total 1500 Balance 2269 - Medications Medications: Current Medications Chlordiazepoxide (Librium) 50 mg PO Q8 JAY Last Admin: 06/29/17 04:10 Dose: Not Given Enoxaparin Sodium (Lovenox) 40 mg SC DAILY JAY PRN Reason: Protocol Last Admin: 06/28/17 09:46 Dose: 40 mg Folic Acid (Folic Acid) 1 mg PO DAILY JAY Last Admin: 06/28/17 12:06 Dose: Not Given Sodium Chloride (Sodium Chloride 0.9%) 1,000 mls @ 150 mls/hr IV .Q6H40M JAY Last Admin: 06/28/17 03:51 Dose: 150 mls/hr Dexmedetomidine HCl 400 mcg/ (Sodium Chloride) 100 mls @ 4.53 mls/hr IV .Q22H5M JAY; 0.2 MCG/KG/HR PRN Reason: Protocol Last Admin: 06/28/17 10:47 Dose: 1.4 mcg/kg/hr, 31.75 mls/hr Propofol (Diprivan) 1,000 mg in 100 mls @ 2.722 mls/hr IV .Q24H JAY; 5 MCG/KG/ MIN PRN Reason: Protocol Stop: 06/29/17 16:10 Last Titration: 06/29/17 05:15 Dose: 50 mcg/kg/min, 27.215 mls/hr Potassium Chloride/Dextrose/Sod Cl (Potassium Chl 20 Meq In D5-Ns) 1,000 mls @ 99.01 mls/hr IV .Q10H6M AJY Stop: 06/29/17 20:30 Last Admin: 06/29/17 05:10 Dose: 99.01 mls/hr Potassium Chloride 10 meq/ (Sodium Chloride) 55 mls @ 55 mls/hr IV Q1 JAY Stop: 06/29/17 12:59 Last Admin: 06/29/17 09:50 Dose: 55 mls/hr Midazolam HCl 50 mg/ Dextrose 100 mls @ 4 mls/hr IV .Q24H ONE; 2 MG/HR PRN Reason: Protocol Stop: 06/30/17 08:29 Last Admin: 06/29/17 08:48 Dose: 2 mg/hr, 4 mls/hr Lorazepam (Ativan) 2 mg IVP Q2H PRN PRN Reason: Agitation Last Admin: 06/28/17 14:09 Dose: 2 mg Multivitamins/Minerals (Therapeutic-M Tab) 1 tab PO DAILY [facility] Pantoprazole Sodium (Protonix Inj) 40 mg IVP DAILY [facility] Last Admin: 06/29/17 08:57 Dose: 40 mg Thiamine HCl (Vitamin B1 Tab) 100 mg PO DAILY [facility] Last Admin: 06/28/17 12:07 Dose: Not Given - Labs Labs: 06/29/17 05:30 06/29/17 05:30 PT 13.1 Seconds (9.8-13.1) 06/27/17 03:58 INR 1.2 (0.9-1.2) 06/27/17 03:58 APTT 32.6 Seconds (25.6-37.1) 06/27/17 03:58 - Constitutional Appears: Unkempt, Older Than Stated Age, Chronically Ill, Other (Intubated on Vent) - Head Exam Head Exam: NORMAL INSPECTION, NORMOCEPHALIC - Eye Exam Eye Exam: EOMI, Normal appearance, PERRL - ENT Exam ENT Exam: Mucous Membranes Dry, Normal External Ear Exam - Neck Exam Neck Exam: Full ROM. absent: Meningismus - Respiratory Exam Respiratory Exam: Rales, Rhonchi Additional comments: Intubated on Vent - Cardiovascular Exam Cardiovascular Exam: REGULAR RHYTHM, +S1, +S2 - GI/Abdominal Exam GI & Abdominal Exam: Distended, Soft, Normal Bowel Sounds - Extremities Exam Extremities Exam: Normal Capillary Refill, Pedal Edema - Neurological Exam Additional comments: Sedated - Skin Skin Exam: Dry, Normal Color, Warm Additional comments: old lichenified rash, luiz on LE Assessment and Plan - Assessment and Plan (Free Text) Assessment: 62 y/o male who was brought to the ED by EMS [facility] and dis[facility]. Per ER report, Patient states he drank beer but had vodka on his person. Patient found to be altered, temp 102 . LP performed in ER. CXR cardiomegaly, EKG sinus tach, CT head neg, CSF : ceel ct normal, gram stain NEG Patient was admitted to ICU for progressively worsening alcohol withdrawal, delirium tremens. 06/28 Intubated for airway protection. 1. Altered mental status likely secondary to Delirium Tremens - Pt now intubated for airway protection LP performed in the ER, CSF Gram stain negative, cell Count : neg drug screen negative, ETOH neg rule out infection: no WBC, UA negative, lipase negative, chest x-ray no acute pathology, procalcitonin normal fever likely due to withdrawal 2. Delirium tremens EtOH less than 10 patient presented with disorientation, tachycardia, hypertension, hallucinations, hyperthermia - Started on Precedex drip in ICU - now on Propofol and Versed drip - Ativan prn - Thiamine IV 3. Rhabdomyolysis CK levels 7006 now down to 2578 Continue normal saline repeat CK levels 4. Azotemia elevated BUN Continue normal saline 5. Elevated troponin, mild Troponin 0.12 , w/c trended down to nortmla immediately No evidence of ischemia or infarct on EKG ECHO:normal wall motion and LV function 6. Transaminitis sec to Alcohol 7. Thrombocytopenia sec to ETOH DVT prophylaxis Lovenox
[2017-06-29 11:58] LABS: SPECIMEN SOURCE CSF
[2017-06-29] MEDS ORDERED: Multivitamin (MVI) 10 ML, Thiamine 100 MG in Dextrose 5%/0.45% NS 1,000 ML IV ONE (13:29)
[2017-06-29] MEDS ORDERED: Chlorhexidine Gluconate 1 APPL/PKT TP ONE (13:34)
--- NOTE | 2017-06-29 13:44 | CP.CCUPN ---
CCU Subjective - Physician Review Events Since Last Encounter (Free Text): 06/29/17 13:26 sedated and intubated. CCU Objective - Vital Signs / Intake & Output Vital Signs (Last 4 hours): Vital Signs Temp Pulse Resp BP Pulse Ox 06/29/17 13:00 82 16 158/83 H 100 06/29/17 12:00 100.4 F H 82 12 137/85 100 06/29/17 11:00 82 18 142/86 100 06/29/17 10:00 81 18 142/67 100 Intake and Output (Last 8hrs): Intake & Output 06/28/17 06/29/17 06/29/17 22:59 06:59 14:59 Intake Total 2709 1060 400 Output Total 900 600 Balance 1809 460 400 Intake: IV 2359 1060 200 Intake, Piggyback 350 200 Oral 0 0 Output: Urine 900 600 Urethral (Cole) 900 Urine, Voided 600 Other: # Bowel Movements 0 0 - Physical Exam Head: Positive for: Atraumatic, Normocephalic Pupils: Positive for: PERRL Extroacular Muscles: Positive for: EOMI Mouth: Positive for: Dry Neck: Positive for: Normal Range of Motion. Negative for: JVD Respiratory/Chest: Positive for: Decreased Breath Sounds. Negative for: Accessory Muscle Use, Wheezes Cardiovascular: Positive for: Regular Rate and Rhythm, Tachycardic. Negative for: Murmurs, Rub Abdomen: Positive for: Normal Bowel Sounds. Negative for: Tenderness, Distention, Mass/Organomegaly Lower Extremity: Positive for: Edema, Erythema Neurological: Positive for: Motor Func Grossly Intact, Normal Sensory Function Skin: Positive for: Warm, Dry. Negative for: Rashes Psychiatric: Positive for: Other (sedated) - Medications Active Medications: Active Medications Generic Name Dose Route Start Last Admin Trade Name Freq PRN Reason Stop Dose Admin Chlordiazepoxide 50 mg 06/27/17 09:00 06/29/17 11:36 Librium PO Not Given Q8 [facility] Enoxaparin Sodium 40 mg 06/27/17 09:00 06/28/17 09:46 Lovenox SC 40 mg DAILY [facility] Administration Protocol Folic Acid 1 mg 06/27/17 09:00 06/28/17 12:06 Folic Acid PO Not Given DAILY [facility] Sodium Chloride 1,000 mls @ 150 mls/hr 06/27/17 09:00 06/28/17 03:51 Sodium Chloride 0.9% IV 150 mls/hr .Q6H40M JAY Administration Dexmedetomidine HCl 400 mcg/ 100 mls @ 4.53 mls/hr 06/27/17 10:30 06/28/17 10 :47 Sodium Chloride IV 1.4 mcg/kg/hr .Q22H5M JAY 31.75 mls/hr Protocol Administration 0.2 MCG/KG/HR Propofol 1,000 mg in 100 mls @ 2.722 mls/hr 06/28/17 16:15 06/29/17 11:40 Diprivan IV 06/29/17 16:10 50 mcg/kg/min .Q24H JAY 27.215 mls/hr Protocol Administration 5 MCG/KG/MIN Potassium Chloride/Dextrose/Sod Cl 1,000 mls @ 99.01 mls/hr 06/28/17 21:30 05:10 Potassium Chl 20 Meq In D5-Ns IV 06/29/17 20:30 99.01 mls/hr .Q10H6M JAY Administration Midazolam HCl 50 mg/ Dextrose 100 mls @ 4 mls/hr 06/29/17 08:30 06/29/17 08: 48 IV 06/30/17 08:29 2 mg/hr .Q24H ONE 4 mls/hr Protocol Administration 2 MG/HR Lorazepam 2 mg 06/28/17 00:57 06/28/17 14:09 Ativan IVP 2 mg Q2H PRN Administration Agitation Multivitamins/Minerals 1 tab 06/29/17 09:00 06/29/17 12:12 Therapeutic-M Tab PO Not Given DAILY JAY Pantoprazole Sodium 40 mg 06/29/17 09:00 06/29/17 08:57 Protonix Inj IVP 40 mg DAILY JAY Administration Thiamine HCl 100 mg 06/27/17 09:00 06/28/17 12:07 Vitamin B1 Tab PO Not Given DAILY JAY - Patient Studies Lab Studies: Microbiology Studies 06/27/17 04:29 Gram Stain - Final Cerebral Spinal Fluid CSF Culture - Preliminary NO GROWTH AFTER 2 DAYS 06/27/17 03:50 Blood Culture - Preliminary Blood NO GROWTH AFTER 48 HOURS 06/27/17 04:20 Blood Culture - Preliminary Blood NO GROWTH AFTER 48 HOURS 06/27/17 09:10 MRSA Culture (Admit) - Final Nose MRSA NOT DETECTED 06/27/17 07:36 Urine Culture - Final Urine No Growth (<1,000 CFU/ML) Lab Studies 06/29/17 06/29/17 06/29/17 Range/Units 10:59 05:30 05:30 WBC 5.6 (4.8-10.8) K/uL RBC 3.79 L (4.40-5.90) Mil/uL Hgb 12.4 (12.0-18.0) g/dL Hct 37.3 (35.0-51.0) % MCV 98.2 H D (80.0-94.0) fl MCH 32.8 H (27.0-31.0) pg MCHC 33.4 (33.0-37.0) g/dL RDW 13.4 (11.5-14.5) % Plt Count 85 L (130-400) K/uL MPV 10.0 (7.2-11.7) fl Neut % (Auto) 75.2 H (50.0-75.0) % Lymph % (Auto) 9.2 L (20.0-40.0) % Haywood % (Auto) 13.6 H (0.0-10.0) % Eos % (Auto) 1.6 (0.0-4.0) % Baso % (Auto) 0.4 (0.0-2.0) % Neut # 4.2 (1.8-7.0) K/uL Lymph # 0.5 L (1.0-4.3) K/uL Haywood # 0.8 (0.0-0.8) K/uL Eos # 0.1 (0.0-0.7) K/uL Baso # 0.0 (0.0-0.2) K/uL pCO2 (35-45) mm/Hg pO2 (80-100) mm/Hg HCO3 (21-28) mmol/L ABG pH (7.35-7.45) ABG Total CO2 (22-28) mmol/L ABG O2 Saturation (95-98) % ABG O2 Content (15-23) ML/dL ABG Base Excess (-2.0-3.0) mmol/L ABG Hemoglobin (11.7-17.4) g/dL ABG Carboxyhemoglobin (0.5-1.5) % POC ABG HHb (Measured) (0.0-5.0) % ABG Methemoglobin (0.0-3.0) % ABG O2 Capacity (16-24) mL/dL Jason Test A-a O2 Difference mm/Hg Hgb O2 Saturation (95.0-98.0) % Vent Mode Mechanical Rate FiO2 % Tidal Volume PEEP Sodium 138 (132-148) mmol/l Potassium 2.9 L (3.6-5.0) MMOL/L Chloride 103 (98-107) mmol/L Carbon Dioxide 27 (22-30) mmol/L Anion Gap 11 (10-20) BUN 11 (9-20) mg/dl Creatinine 0.6 L (0.8-1.5) mg/dl Est GFR ( Amer) > 60 Est GFR (Non-Af Amer) > 60 POC Glucose (mg/dL) 99 (65-110) mg/dL Random Glucose 108 (75-110) mg/dL Calcium 6.8 L (8.4-10.2) mg/dL Total Bilirubin 1.3 (0.2-1.3) mg/dl AST 84 H D (17-59) U/L ALT 36 (21-72) U/L Alkaline Phosphatase 73 (38-126) U/L Total Creatine Kinase 2578 H (55-170) U/L Total Protein 6.4 (6.3-8.2) G/DL Albumin 3.1 L (3.5-5.0) g/dL Globulin 3.3 (2.2-3.9) gm/dL Albumin/Globulin Ratio 0.9 L (1.0-2.1) HSV Source Description HSV I DNA PCR (Not Detected) HSV II DNA PCR (Not Detected) 06/29/17 06/29/17 06/28/17 Range/Units 04:31 04:08 21:21 WBC (4.8-10.8) K/uL RBC (4.40-5.90) Mil/uL Hgb (12.0-18.0) g/dL Hct (35.0-51.0) % MCV (80.0-94.0) fl MCH (27.0-31.0) pg MCHC (33.0-37.0) g/dL RDW (11.5-14.5) % Plt Count (130-400) K/uL MPV (7.2-11.7) fl Neut % (Auto) (50.0-75.0) % Lymph % (Auto) (20.0-40.0) % Haywood % (Auto) (0.0-10.0) % Eos % (Auto) (0.0-4.0) % Baso % (Auto) (0.0-2.0) % Neut # (1.8-7.0) K/uL Lymph # (1.0-4.3) K/uL Haywood # (0.0-0.8) K/uL Eos # (0.0-0.7) K/uL Baso # (0.0-0.2) K/uL pCO2 36 (35-45) mm/Hg pO2 132 H (80-100) mm/Hg HCO3 26.9 (21-28) mmol/L ABG pH 7.47 H (7.35-7.45) ABG Total CO2 27.3 (22-28) mmol/L ABG O2 Saturation 98.1 H (95-98) % ABG O2 Content 17.5 (15-23) ML/dL ABG Base Excess 2.6 (-2.0-3.0) mmol/L ABG Hemoglobin 12.8 (11.7-17.4) g/dL ABG Carboxyhemoglobin 1.1 (0.5-1.5) % POC ABG HHb (Measured) 1.9 (0.0-5.0) % ABG Methemoglobin 0.9 (0.0-3.0) % ABG O2 Capacity 17.8 (16-24) mL/dL Jason Test Yes A-a O2 Difference 108.0 mm/Hg Hgb O2 Saturation 96.1 (95.0-98.0) % Vent Mode A/c Mechanical Rate 12 FiO2 40.0 % Tidal Volume 500 PEEP 5 Sodium (132-148) mmol/l Potassium (3.6-5.0) MMOL/L Chloride (98-107) mmol/L Carbon Dioxide (22-30) mmol/L Anion Gap (10-20) BUN (9-20) mg/dl Creatinine (0.8-1.5) mg/dl Est GFR ( Amer) Est GFR (Non-Af Amer) POC Glucose (mg/dL) 97 112 H (65-110) mg/dL Random Glucose (75-110) mg/dL Calcium (8.4-10.2) mg/dL Total Bilirubin (0.2-1.3) mg/dl AST (17-59) U/L ALT (21-72) U/L Alkaline Phosphatase (38-126) U/L Total Creatine Kinase (55-170) U/L Total Protein (6.3-8.2) G/DL Albumin (3.5-5.0) g/dL Globulin (2.2-3.9) gm/dL Albumin/Globulin Ratio (1.0-2.1) HSV Source Description HSV I DNA PCR (Not Detected) HSV II DNA PCR (Not Detected) 06/28/17 06/28/17 06/27/17 Range/Units 17:52 17:48 07:49 WBC (4.8-10.8) K/uL RBC (4.40-5.90) Mil/uL Hgb (12.0-18.0) g/dL Hct (35.0-51.0) % MCV (80.0-94.0) fl MCH (27.0-31.0) pg MCHC (33.0-37.0) g/dL RDW (11.5-14.5) % Plt Count (130-400) K/uL MPV (7.2-11.7) fl Neut % (Auto) (50.0-75.0) % Lymph % (Auto) (20.0-40.0) % Haywood % (Auto) (0.0-10.0) % Eos % (Auto) (0.0-4.0) % Baso % (Auto) (0.0-2.0) % Neut # (1.8-7.0) K/uL Lymph # (1.0-4.3) K/uL Haywood # (0.0-0.8) K/uL Eos # (0.0-0.7) K/uL Baso # (0.0-0.2) K/uL pCO2 43 (35-45) mm/Hg pO2 218 H (80-100) mm/Hg HCO3 24.9 (21-28) mmol/L ABG pH 7.38 (7.35-7.45) ABG Total CO2 26.7 (22-28) mmol/L ABG O2 Saturation 98.7 H (95-98) % ABG O2 Content 19.0 (15-23) ML/dL ABG Base Excess 0 (-2.0-3.0) mmol/L ABG Hemoglobin 13.7 (11.7-17.4) g/dL ABG Carboxyhemoglobin 1.8 H (0.5-1.5) % POC ABG HHb (Measured) 1.3 (0.0-5.0) % ABG Methemoglobin 0.6 (0.0-3.0) % ABG O2 Capacity 19.3 (16-24) mL/dL Jason Test Yes A-a O2 Difference 156.0 mm/Hg Hgb O2 Saturation 96.4 (95.0-98.0) % Vent Mode Prvc/ac Mechanical Rate 12 FiO2 60.0 % Tidal Volume 500 PEEP 5 Sodium (132-148) mmol/l Potassium (3.6-5.0) MMOL/L Chloride (98-107) mmol/L Carbon Dioxide (22-30) mmol/L Anion Gap (10-20) BUN (9-20) mg/dl Creatinine (0.8-1.5) mg/dl Est GFR ( Amer) Est GFR (Non-Af Amer) POC Glucose (mg/dL) 118 H (65-110) mg/dL Random Glucose (75-110) mg/dL Calcium (8.4-10.2) mg/dL Total Bilirubin (0.2-1.3) mg/dl AST (17-59) U/L ALT (21-72) U/L Alkaline Phosphatase (38-126) U/L Total Creatine Kinase (55-170) U/L Total Protein (6.3-8.2) G/DL Albumin (3.5-5.0) g/dL Globulin (2.2-3.9) gm/dL Albumin/Globulin Ratio (1.0-2.1) HSV Source Description Csf HSV I DNA PCR Not detected (Not Detected) HSV II DNA PCR Not detected (Not Detected) Laboratory Results - last 24 hr 06/27/17 06/28/17 06/28/17 07:49 17:48 17:52 WBC RBC Hgb Hct MCV MCH MCHC RDW Plt Count MPV Neut % (Auto) Lymph % (Auto) Haywood % (Auto) Eos % (Auto) Baso % (Auto) Neut # Lymph # Haywood # Eos # Baso # pCO2 43 pO2 218 H HCO3 24.9 ABG pH 7.38 ABG Total CO2 26.7 ABG O2 Saturation 98.7 H ABG O2 Content 19.0 ABG Base Excess 0 ABG Hemoglobin 13.7 ABG Carboxyhemoglobin 1.8 H POC ABG HHb (Measured) 1.3 ABG Methemoglobin 0.6 ABG O2 Capacity 19.3 Jason Test Yes A-a O2 Difference 156.0 Hgb O2 Saturation 96.4 Vent Mode Prvc/ac Mechanical Rate 12 FiO2 60.0 Tidal Volume 500 PEEP 5 Sodium Potassium Chloride Carbon Dioxide Anion Gap BUN Creatinine Est GFR ( Amer) Est GFR (Non-Af Amer) POC Glucose (mg/dL) 118 H Random Glucose Calcium Total Bilirubin AST ALT Alkaline Phosphatase Total Creatine Kinase Total Protein Albumin Globulin Albumin/Globulin Ratio HSV Source Description Csf HSV I DNA PCR Not detected HSV II DNA PCR Not detected 06/28/17 06/29/17 06/29/17 21:21 04:08 04:31 WBC RBC Hgb Hct MCV MCH MCHC RDW Plt Count MPV Neut % (Auto) Lymph % (Auto) Haywood % (Auto) Eos % (Auto) Baso % (Auto) Neut # Lymph # Haywood # Eos # Baso # pCO2 36 pO2 132 H HCO3 26.9 ABG pH 7.47 H ABG Total CO2 27.3 ABG O2 Saturation 98.1 H ABG O2 Content 17.5 ABG Base Excess 2.6 ABG Hemoglobin 12.8 ABG Carboxyhemoglobin 1.1 POC ABG HHb (Measured) 1.9 ABG Methemoglobin 0.9 ABG O2 Capacity 17.8 Jason Test Yes A-a O2 Difference 108.0 Hgb O2 Saturation 96.1 Vent Mode A/c Mechanical Rate 12 FiO2 40.0 Tidal Volume 500 PEEP 5 Sodium Potassium Chloride Carbon Dioxide Anion Gap BUN Creatinine Est GFR ( Amer) Est GFR (Non-Af Amer) POC Glucose (mg/dL) 112 H 97 Random Glucose Calcium Total Bilirubin AST ALT Alkaline Phosphatase Total Creatine Kinase Total Protein Albumin Globulin Albumin/Globulin Ratio HSV Source Description HSV I DNA PCR HSV II DNA PCR 06/29/17 06/29/17 06/29/17 05:30 05:30 10:59 WBC 5.6 RBC 3.79 L Hgb 12.4 Hct 37.3 MCV 98.2 H D MCH 32.8 H MCHC 33.4 RDW 13.4 Plt Count 85 L MPV 10.0 Neut % (Auto) 75.2 H Lymph % (Auto) 9.2 L Haywood % (Auto) 13.6 H Eos % (Auto) 1.6 Baso % (Auto) 0.4 Neut # 4.2 Lymph # 0.5 L Haywood # 0.8 Eos # 0.1 Baso # 0.0 pCO2 pO2 HCO3 ABG pH ABG Total CO2 ABG O2 Saturation ABG O2 Content ABG Base Excess ABG Hemoglobin ABG Carboxyhemoglobin POC ABG HHb (Measured) ABG Methemoglobin ABG O2 Capacity Jason Test A-a O2 Difference Hgb O2 Saturation Vent Mode Mechanical Rate FiO2 Tidal Volume PEEP Sodium 138 Potassium 2.9 L Chloride 103 Carbon Dioxide 27 Anion Gap 11 BUN 11 Creatinine 0.6 L Est GFR ( Amer) > 60 Est GFR (Non-Af Amer) > 60 POC Glucose (mg/dL) 99 Random Glucose 108 Calcium 6.8 L Total Bilirubin 1.3 AST 84 H D ALT 36 Alkaline Phosphatase 73 Total Creatine Kinase 2578 H Total Protein 6.4 Albumin 3.1 L Globulin 3.3 Albumin/Globulin Ratio 0.9 L HSV Source Description HSV I DNA PCR HSV II DNA PCR Fingerstick Blood Sugar Results: 99 Review of Systems - Review of Systems Systems not reviewed;Unavailable: Intubated Critical Care Progress Note - Ventilator Checklist Head of Bed 30 Degrees: Yes Daily Sedation Vacation: Yes Daily Assessment of Readiness to Wean: Yes Daily Spontaneous Breathing Trial: Yes PUD Prophalyxis: Yes DVT Prophylaxis: Yes - Nutrition Nutrition: Nutrition Category Date Time Status NPO Diet [DIET] Diets 06/27/17 Lunch Active Assessment/Plan (1) Alcohol withdrawal Assessment and plan: 62yo M. PMHx ETOH abuse. p/w ETOH withdrawal, with signs of delirium tremens. Neuro: delirium tremens, now intubated and sedated with propofol gtt and versed gtt. Pulm: intubated for airway protection CV: hemodynamically stable Hem: no acute issues Renal: Banana bag, D51/2NS+MVI+Thiamine+Folate@100 Endo: no acute issues GI: NPO, Jevity@20 ID: no acute issues DVT proph - lovenox GI proph - protonix IV cole for strict I/O's during acute illness Code status - full code Current Visit: Yes Status: Acute
[2017-06-29 15:28] VITALS: BMI 29.2
[2017-06-29] MEDS ORDERED: Propofol 10 mg/ml 1,000 MG/100 ML VIAL IV SCH (15:45)
[2017-06-29] MEDS ORDERED: Propofol 10 mg/ml 1,000 MG/100 ML VIAL ONE (19:48)
[2017-06-30] MEDS ORDERED: Potassium Chl 20 mEq in D5-NS 1,000 ML IV SCH ×2 (00:30→00:31)
[2017-06-30 05:28] LABS: BASO % 0.7 % (0.0-2.0); EOS # 0.2 K/uL (0.0-0.7); EOS % 3.5 % (0.0-4.0); LYMPH # 0.6 K/uL (1.0-4.3); LYMPH % 12.7 % (20.0-40.0); MEAN CELL VOLUME 98.6 fl (80.0-94.0); MEAN CORPUSCULAR HEMOGLOBIN 33.2 pg (27.0-31.0); MEAN CORPUSCULAR HGB CONC 33.7 g/dL (33.0-37.0); MEAN PLATELET VOLUME 10.1 fl (7.2-11.7); MONO # 0.8 K/uL (0.0-0.8); MONO % 16.2 % (0.0-10.0); NEUT # 3.2 K/uL (1.8-7.0); NEUT % 66.9 % (50.0-75.0); NRBC % 0.1 % (0.0-0.0); RED CELL DISTRIBUTION WIDTH 13.3 % (11.5-14.5); WHITE BLOOD COUNT 4.8 K/uL (4.8-10.8)
[2017-06-30 05:42] LABS: ABG ALLEN TEST YES; ABG MECHANICAL RATE 12; ARTERIAL BLOOD GAS HCO3 27.4 mmol/L (21-28); ARTERIAL BLOOD GAS MODE A/C; ARTERIAL BLOOD GAS O2 CAPACITY 16.8 mL/dL (16-24); ARTERIAL BLOOD GAS O2 CONTENT 16.5 ML/dL (15-23); ARTERIAL BLOOD GAS PH 7.47 (7.35-7.45); ARTERIAL BLOOD GAS PO2 163 mm/Hg (80-100); ARTERIAL BLOOD HGB O2 SAT 96.6 % (95.0-98.0); ATERIAL BLOOD GAS PEEP 5; CARBOXYHEMOGLOBIN 0.8 % (0.5-1.5); HHB 1.8 % (0.0-5.0); METHEMOGLOBIN 0.8 % (0.0-3.0)
[2017-06-30 05:42] LABS: ALB/GLOB RATIO 0.9 (1.0-2.1); ALKALINE PHOSPHATASE 78 U/L (38-126); ALT/SGPT 34 U/L (21-72); AST/SGOT 77 U/L (17-59); BILIRUBIN,TOTAL 0.8 mg/dl (0.2-1.3); BLOOD UREA NITROGEN 6 mg/dl (9-20); CARBON DIOXIDE 27 mmol/L (22-30); CHLORIDE 106 mmol/L (98-107); GFR AFRICAN-AMERICAN > 60; GLUCOSE,RANDOM 129 mg/dL (75-110); POTASSIUM 2.7 MMOL/L (3.6-5.0); SODIUM 138 mmol/l (132-148); TOTAL PROTEIN 6.4 G/DL (6.3-8.2)
[2017-06-30] MEDS ORDERED: Multivitamin (MVI) 10 ML, Thiamine 100 MG in Dextrose 5%/0.45% NS 1,000 ML IV ONE (08:00)
[2017-06-30] MEDS: Enoxaparin 40 mg Syringe SC SCH (08:53)
[2017-06-30] MEDS: Propofol 10 mg/ml 1,000 MG/100 ML VIAL IV SCH (09:37)
[2017-06-30] MEDS ORDERED: Pneumococcal 23-Valent Vaccine IM ONE (10:00)
[2017-06-30] MEDS ORDERED: Influenza Vaccine 18yr & older 0.5 ML/45 MCG SYR IM ONE (10:00)
[2017-06-30] MEDS: Midazolam 5 MG/ML 50 MG in Dextrose 5% In Water 90 ML IV SCH ×2 (10:33→23:09)
--- NOTE | 2017-06-30 10:34 | RAD ---
PROCEDURE: CHEST RADIOGRAPH, 1 VIEW HISTORY: pt intubated COMPARISON: June 29, 2017. FINDINGS: LUNGS: Interval improvement with respect to multifocal infiltrates including right lung, right lower lobe and to lesser extent left lower lobe. PLEURA: No pneumothorax or pleural fluid seen. CARDIOVASCULAR: No radiographic findings to suggest acute or significant cardiovascular disease. OSSEOUS STRUCTURES: No significant abnormalities. VISUALIZED UPPER ABDOMEN: Normal. OTHER FINDINGS: Stable, satisfactory position of endotracheal tube IMPRESSION: Improving lower lobe infiltrates. Stable position of endotracheal tube.
[2017-06-30] MEDS ORDERED: Potassium Chloride 20 mEq ER Tab PO ONE (11:45)
--- NOTE | 2017-06-30 12:34 | CP.PCM.PN ---
Subjective - Date & Time of Evaluation Date of Evaluation: 06/30/17 Time of Evaluation: 12:00 - Subjective Subjective: Pt remains intubated on Vent Sedated on Propofol and Versed No fever today Now on tube feeding - tolerating Objective - Vital Signs/Intake and Output Vital Signs (last 24 hours): Temp Pulse Resp BP Pulse Ox 99.5 F 82 16 127/59 L 100 06/30/17 12:00 06/30/17 12:00 06/30/17 12:00 06/30/17 12:00 06/30/17 12:00 Intake and Output: 06/30/17 06/30/17 06:59 18:59 Intake Total 1204 815 Output Total 620 600 Balance 584 215 - Medications Medications: Current Medications Enoxaparin Sodium (Lovenox) 40 mg SC DAILY JAY PRN Reason: Protocol Last Admin: 06/30/17 08:53 Dose: 40 mg Folic Acid (Folic Acid) 1 mg PO DAILY JAY Last Admin: 06/28/17 12:06 Dose: Not Given Multivitamins/Vitamin C 10 ml/Thiamine HCl 100 mg/ Dextrose /Sodium Chloride 1, 011 mls @ 75 mls/hr IV .[id number] ONE Stop: 06/30/17 21:28 Propofol (Diprivan) 1,000 mg in 100 mls @ 24.63 mls/hr IV .Q4H4M JAY; 50 MCG/KG /MIN PRN Reason: Protocol Stop: 06/30/17 19:50 Last Titration: 06/30/17 11:48 Dose: 15 mcg/kg/min, 7.389 mls/hr Potassium Chloride/Dextrose/Sod Cl (Potassium Chl 20 Meq In D5-Ns) 1,000 mls @ 75 mls/hr IV .[id number] JAY Stop: 07/01/17 00:27 Last Admin: 06/30/17 01:08 Dose: 75 mls/hr Midazolam HCl 50 mg/ Dextrose 100 mls @ 4 mls/hr IV .Q24H JAY; 2 MG/HR PRN Reason: Protocol Last Admin: 06/30/17 10:33 Dose: 2 mg/hr, 4 mls/hr Potassium Chloride 10 meq/ (Sodium Chloride) 55 mls @ 55 mls/hr IV Q1 JAY Stop: 06/30/17 15:59 Last Admin: 06/30/17 12:19 Dose: 55 mls/hr Pantoprazole Sodium (Protonix Inj) 40 mg IVP DAILY [facility] Last Admin: 06/30/17 08:53 Dose: 40 mg Thiamine HCl (Vitamin B1 Tab) 100 mg PO DAILY [facility] Last Admin: 06/28/17 12:07 Dose: Not Given - Labs Labs: 06/30/17 04:20 06/30/17 04:20 PT 13.1 Seconds (9.8-13.1) 06/27/17 03:58 INR 1.2 (0.9-1.2) 06/27/17 03:58 APTT 32.6 Seconds (25.6-37.1) 06/27/17 03:58 - Constitutional Appears: Unkempt, Older Than Stated Age, Chronically Ill, Other (Intubated on Vent) - Head Exam Head Exam: NORMAL INSPECTION, NORMOCEPHALIC - Eye Exam Eye Exam: EOMI, Normal appearance, PERRL - ENT Exam ENT Exam: Mucous Membranes Dry, Normal External Ear Exam - Neck Exam Neck Exam: Full ROM. absent: Meningismus - Respiratory Exam Respiratory Exam: Rales, Rhonchi Additional comments: Intubated on Vent - Cardiovascular Exam Cardiovascular Exam: REGULAR RHYTHM, +S1, +S2 - GI/Abdominal Exam GI & Abdominal Exam: Distended, Soft, Normal Bowel Sounds - Extremities Exam Extremities Exam: Normal Capillary Refill, Pedal Edema - Neurological Exam Additional comments: Sedated - Skin Skin Exam: Dry, Normal Color, Warm Additional comments: old lichenified rash, luiz on LE Assessment and Plan - Assessment and Plan (Free Text) Assessment: 62 y/o male who was brought to the ED by EMS after [facility] confused and disoriented. Per ER report, Patient states he drank beer but had vodka on his person. Patient found to be altered, temp 102 . LP performed in ER. CXR cardiomegaly, EKG sinus tach, CT head neg, CSF : ceel ct normal, gram stain NEG Patient was admitted to ICU for progressively worsening alcohol withdrawal, delirium tremens. 06/28 Intubated for airway protection. 1. Altered mental status likely secondary to Delirium Tremens - Pt now intubated for airway protection LP performed in the ER ( bec of fever and AMS) CSF: Gram stain negative, cell Count : neg drug screen negative, ETOH neg ruled out infection: no WBC, UA negative, lipase negative, chest x-ray no acute pathology, procalcitonin normal fever likely due to withdrawal 2. Delirium tremens EtOH less than 10 patient presented with disorientation, tachycardia, hypertension, hallucinations, hyperthermia - Started on Precedex drip in ICU - now on Propofol and Versed drip - Ativan prn - Thiamine IV 3. Rhabdomyolysis CK levels 7006 now down to 2500 Continue normal saline repeat CK level 4. Azotemia elevated BUN Continue normal saline 5. Elevated troponin, mild Troponin 0.12 , w/c trended down to nortmla immediately No evidence of ischemia or infarct on EKG ECHO:normal wall motion and LV function 6. Transaminitis sec to Alcohol 7. Thrombocytopenia sec to ETOH 8. Hypokalemia -replace with KCl runs started on tube feeding DVT prophylaxis Lovenox
--- NOTE | 2017-06-30 15:59 | CP.CCUPN ---
CCU Subjective - Physician Review Events Since Last Encounter (Free Text): 06/30/17 15:53 sedated on vent. CCU Objective - Vital Signs / Intake & Output Vital Signs (Last 4 hours): Vital Signs Temp Pulse Resp BP Pulse Ox 06/30/17 15:00 84 14 131/78 100 06/30/17 14:00 122 H 18 142/95 H 98 06/30/17 13:00 85 24 133/79 100 06/30/17 12:00 99.5 F 82 16 127/59 L 100 Intake and Output (Last 8hrs): Intake & Output 06/30/17 06/30/17 06/30/17 06:59 14:59 22:59 Intake Total 1140 1105 Output Total 620 700 Balance 520 405 Intake: IV 1000 715 Intake, Piggyback 40 100 Tube Feeding 100 140 Free Water Flush 150 Output: Urine 620 700 Urethral (Cole) 620 700 Other: # Bowel Movements 1 - Physical Exam Head: Positive for: Atraumatic, Normocephalic Pupils: Positive for: PERRL Extroacular Muscles: Positive for: EOMI Mouth: Positive for: Dry Neck: Positive for: Normal Range of Motion. Negative for: JVD Respiratory/Chest: Positive for: Decreased Breath Sounds. Negative for: Accessory Muscle Use, Wheezes Cardiovascular: Positive for: Regular Rate and Rhythm, Tachycardic. Negative for: Murmurs, Rub Abdomen: Positive for: Normal Bowel Sounds. Negative for: Tenderness, Distention, Mass/Organomegaly Lower Extremity: Positive for: Edema, Erythema Neurological: Positive for: Motor Func Grossly Intact, Normal Sensory Function Skin: Positive for: Warm, Dry. Negative for: Rashes Psychiatric: Positive for: Other (sedated) - Medications Active Medications: Active Medications Generic Name Dose Route Start Last Admin Trade Name Freq PRN Reason Stop Dose Admin Enoxaparin Sodium 40 mg 06/27/17 09:00 06/30/17 08:53 Lovenox SC 40 mg DAILY [facility] Administration Protocol Folic Acid 1 mg 06/27/17 09:00 06/28/17 12:06 Folic Acid PO Not Given DAILY [facility] Multivitamins/Vitamin C 10 ml/ 1,011 mls @ 75 mls/hr 06/30/17 08:00 06/30/17 13:46 Thiamine HCl 100 mg/ Dextrose IV 06/30/17 21:28 75 mls/hr /Sodium Chloride .[id number] Administration Propofol 1,000 mg in 100 mls @ 24.63 mls/hr 06/29/17 20:00 06/30/17 13:42 Diprivan IV 06/30/17 19:50 0 mcg/kg/min .[id number] JAY 0 mls/hr Protocol Titration 50 MCG/KG/MIN Potassium Chloride/Dextrose/Sod Cl 1,000 mls @ 75 mls/hr 06/30/17 00:31 06/30 01:08 Potassium Chl 20 Meq In D5-Ns IV 07/01/17 00:27 75 mls/hr .[id number] JAY Administration Midazolam HCl 50 mg/ Dextrose 100 mls @ 4 mls/hr 06/30/17 10:30 06/30/17 10: 33 IV 2 mg/hr .Q24H JAY 4 mls/hr Protocol Administration 2 MG/HR Potassium Chloride 10 meq/ 55 mls @ 55 mls/hr 06/30/17 12:00 06/30/17 15:13 Sodium Chloride IV 06/30/17 15:59 55 mls/hr Q1 JAY Administration Pantoprazole Sodium 40 mg 06/29/17 09:00 06/30/17 08:53 Protonix Inj IVP 40 mg DAILY JAY Administration Thiamine HCl 100 mg 06/27/17 09:00 06/28/17 12:07 Vitamin B1 Tab PO Not Given DAILY JAY - Patient Studies Lab Studies: Microbiology Studies 06/27/17 04:29 Gram Stain - Final Cerebral Spinal Fluid CSF Culture - Preliminary NO GROWTH AFTER 3 DAYS 06/27/17 03:50 Blood Culture - Preliminary Blood NO GROWTH AFTER 3 DAYS 06/27/17 04:20 Blood Culture - Preliminary Blood NO GROWTH AFTER 3 DAYS Lab Studies 06/30/17 06/30/17 06/30/17 Range/Units 11:34 06:41 05:36 WBC (4.8-10.8) K/uL RBC (4.40-5.90) Mil/uL Hgb (12.0-18.0) g/dL Hct (35.0-51.0) % MCV (80.0-94.0) fl MCH (27.0-31.0) pg MCHC (33.0-37.0) g/dL RDW (11.5-14.5) % Plt Count (130-400) K/uL MPV (7.2-11.7) fl Neut % (Auto) (50.0-75.0) % Lymph % (Auto) (20.0-40.0) % Noble % (Auto) (0.0-10.0) % Eos % (Auto) (0.0-4.0) % Baso % (Auto) (0.0-2.0) % Neut # (1.8-7.0) K/uL Lymph # (1.0-4.3) K/uL Noble # (0.0-0.8) K/uL Eos # (0.0-0.7) K/uL Baso # (0.0-0.2) K/uL pCO2 37 (35-45) mm/Hg pO2 163 H (80-100) mm/Hg HCO3 27.4 (21-28) mmol/L ABG pH 7.47 H (7.35-7.45) ABG Total CO2 28.0 (22-28) mmol/L ABG O2 Saturation 98.2 H (95-98) % ABG O2 Content 16.5 (15-23) ML/dL ABG Base Excess 3.2 H (-2.0-3.0) mmol/L ABG Hemoglobin 11.9 (11.7-17.4) g/dL ABG Carboxyhemoglobin 0.8 (0.5-1.5) % POC ABG HHb (Measured) 1.8 (0.0-5.0) % ABG Methemoglobin 0.8 (0.0-3.0) % ABG O2 Capacity 16.8 (16-24) mL/dL Jason Test Yes A-a O2 Difference 76.0 mm/Hg Hgb O2 Saturation 96.6 (95.0-98.0) % Vent Mode A/c Mechanical Rate 12 FiO2 40.0 % Tidal Volume 500 PEEP 5 Sodium (132-148) mmol/l Potassium (3.6-5.0) MMOL/L Chloride (98-107) mmol/L Carbon Dioxide (22-30) mmol/L Anion Gap (10-20) BUN (9-20) mg/dl Creatinine (0.8-1.5) mg/dl Est GFR ( Amer) Est GFR (Non-Af Amer) POC Glucose (mg/dL) 116 H 138 H (65-110) mg/dL Random Glucose (75-110) mg/dL Calcium (8.4-10.2) mg/dL Total Bilirubin (0.2-1.3) mg/dl AST (17-59) U/L ALT (21-72) U/L Alkaline Phosphatase (38-126) U/L Total Creatine Kinase (55-170) U/L Total Protein (6.3-8.2) G/DL Albumin (3.5-5.0) g/dL Globulin (2.2-3.9) gm/dL Albumin/Globulin Ratio (1.0-2.1) 06/30/17 06/30/17 06/29/17 Range/Units 04:20 04:20 21:34 WBC 4.8 (4.8-10.8) K/uL RBC 3.55 L (4.40-5.90) Mil/uL Hgb 11.8 L (12.0-18.0) g/dL Hct 35.0 (35.0-51.0) % MCV 98.6 H (80.0-94.0) fl MCH 33.2 H (27.0-31.0) pg MCHC 33.7 (33.0-37.0) g/dL RDW 13.3 (11.5-14.5) % Plt Count 87 L (130-400) K/uL MPV 10.1 (7.2-11.7) fl Neut % (Auto) 66.9 (50.0-75.0) % Lymph % (Auto) 12.7 L (20.0-40.0) % Noble % (Auto) 16.2 H (0.0-10.0) % Eos % (Auto) 3.5 (0.0-4.0) % Baso % (Auto) 0.7 (0.0-2.0) % Neut # 3.2 (1.8-7.0) K/uL Lymph # 0.6 L (1.0-4.3) K/uL Noble # 0.8 (0.0-0.8) K/uL Eos # 0.2 (0.0-0.7) K/uL Baso # 0.0 (0.0-0.2) K/uL pCO2 (35-45) mm/Hg pO2 (80-100) mm/Hg HCO3 (21-28) mmol/L ABG pH (7.35-7.45) ABG Total CO2 (22-28) mmol/L ABG O2 Saturation (95-98) % ABG O2 Content (15-23) ML/dL ABG Base Excess (-2.0-3.0) mmol/L ABG Hemoglobin (11.7-17.4) g/dL ABG Carboxyhemoglobin (0.5-1.5) % POC ABG HHb (Measured) (0.0-5.0) % ABG Methemoglobin (0.0-3.0) % ABG O2 Capacity (16-24) mL/dL Jason Test A-a O2 Difference mm/Hg Hgb O2 Saturation (95.0-98.0) % Vent Mode Mechanical Rate FiO2 % Tidal Volume PEEP Sodium 138 (132-148) mmol/l Potassium 2.7 L (3.6-5.0) MMOL/L Chloride 106 (98-107) mmol/L Carbon Dioxide 27 (22-30) mmol/L Anion Gap 8 L (10-20) BUN 6 L (9-20) mg/dl Creatinine 0.6 L (0.8-1.5) mg/dl Est GFR ( Amer) > 60 Est GFR (Non-Af Amer) > 60 POC Glucose (mg/dL) 108 (65-110) mg/dL Random Glucose 129 H (75-110) mg/dL Calcium 7.0 L (8.4-10.2) mg/dL Total Bilirubin 0.8 (0.2-1.3) mg/dl AST 77 H (17-59) U/L ALT 34 (21-72) U/L Alkaline Phosphatase 78 (38-126) U/L Total Creatine Kinase 2585 H (55-170) U/L Total Protein 6.4 (6.3-8.2) G/DL Albumin 3.0 L (3.5-5.0) g/dL Globulin 3.4 (2.2-3.9) gm/dL Albumin/Globulin Ratio 0.9 L (1.0-2.1) 06/29/17 Range/Units 16:14 WBC (4.8-10.8) K/uL RBC (4.40-5.90) Mil/uL Hgb (12.0-18.0) g/dL Hct (35.0-51.0) % MCV (80.0-94.0) fl MCH (27.0-31.0) pg MCHC (33.0-37.0) g/dL RDW (11.5-14.5) % Plt Count (130-400) K/uL MPV (7.2-11.7) fl Neut % (Auto) (50.0-75.0) % Lymph % (Auto) (20.0-40.0) % Noble % (Auto) (0.0-10.0) % Eos % (Auto) (0.0-4.0) % Baso % (Auto) (0.0-2.0) % Neut # (1.8-7.0) K/uL Lymph # (1.0-4.3) K/uL Noble # (0.0-0.8) K/uL Eos # (0.0-0.7) K/uL Baso # (0.0-0.2) K/uL pCO2 (35-45) mm/Hg pO2 (80-100) mm/Hg HCO3 (21-28) mmol/L ABG pH (7.35-7.45) ABG Total CO2 (22-28) mmol/L ABG O2 Saturation (95-98) % ABG O2 Content (15-23) ML/dL ABG Base Excess (-2.0-3.0) mmol/L ABG Hemoglobin (11.7-17.4) g/dL ABG Carboxyhemoglobin (0.5-1.5) % POC ABG HHb (Measured) (0.0-5.0) % ABG Methemoglobin (0.0-3.0) % ABG O2 Capacity (16-24) mL/dL Jason Test A-a O2 Difference mm/Hg Hgb O2 Saturation (95.0-98.0) % Vent Mode Mechanical Rate FiO2 % Tidal Volume PEEP Sodium (132-148) mmol/l Potassium (3.6-5.0) MMOL/L Chloride (98-107) mmol/L Carbon Dioxide (22-30) mmol/L Anion Gap (10-20) BUN (9-20) mg/dl Creatinine (0.8-1.5) mg/dl Est GFR ( Amer) Est GFR (Non-Af Amer) POC Glucose (mg/dL) 107 (65-110) mg/dL Random Glucose (75-110) mg/dL Calcium (8.4-10.2) mg/dL Total Bilirubin (0.2-1.3) mg/dl AST (17-59) U/L ALT (21-72) U/L Alkaline Phosphatase (38-126) U/L Total Creatine Kinase (55-170) U/L Total Protein (6.3-8.2) G/DL Albumin (3.5-5.0) g/dL Globulin (2.2-3.9) gm/dL Albumin/Globulin Ratio (1.0-2.1) Laboratory Results - last 24 hr 06/29/17 06/29/17 06/30/17 16:14 21:34 04:20 WBC 4.8 RBC 3.55 L Hgb 11.8 L Hct 35.0 MCV 98.6 H MCH 33.2 H MCHC 33.7 RDW 13.3 Plt Count 87 L MPV 10.1 Neut % (Auto) 66.9 Lymph % (Auto) 12.7 L Noble % (Auto) 16.2 H Eos % (Auto) 3.5 Baso % (Auto) 0.7 Neut # 3.2 Lymph # 0.6 L Noble # 0.8 Eos # 0.2 Baso # 0.0 pCO2 pO2 HCO3 ABG pH ABG Total CO2 ABG O2 Saturation ABG O2 Content ABG Base Excess ABG Hemoglobin ABG Carboxyhemoglobin POC ABG HHb (Measured) ABG Methemoglobin ABG O2 Capacity Jason Test A-a O2 Difference Hgb O2 Saturation Vent Mode Mechanical Rate FiO2 Tidal Volume PEEP Sodium Potassium Chloride Carbon Dioxide Anion Gap BUN Creatinine Est GFR ( Amer) Est GFR (Non-Af Amer) POC Glucose (mg/dL) 107 108 Random Glucose Calcium Total Bilirubin AST ALT Alkaline Phosphatase Total Creatine Kinase Total Protein Albumin Globulin Albumin/Globulin Ratio 06/30/17 06/30/17 06/30/17 04:20 05:36 06:41 WBC RBC Hgb Hct MCV MCH MCHC RDW Plt Count MPV Neut % (Auto) Lymph % (Auto) Noble % (Auto) Eos % (Auto) Baso % (Auto) Neut # Lymph # Noble # Eos # Baso # pCO2 37 pO2 163 H HCO3 27.4 ABG pH 7.47 H ABG Total CO2 28.0 ABG O2 Saturation 98.2 H ABG O2 Content 16.5 ABG Base Excess 3.2 H ABG Hemoglobin 11.9 ABG Carboxyhemoglobin 0.8 POC ABG HHb (Measured) 1.8 ABG Methemoglobin 0.8 ABG O2 Capacity 16.8 Jason Test Yes A-a O2 Difference 76.0 Hgb O2 Saturation 96.6 Vent Mode A/c Mechanical Rate 12 FiO2 40.0 Tidal Volume 500 PEEP 5 Sodium 138 Potassium 2.7 L Chloride 106 Carbon Dioxide 27 Anion Gap 8 L BUN 6 L Creatinine 0.6 L Est GFR ( Amer) > 60 Est GFR (Non-Af Amer) > 60 POC Glucose (mg/dL) 138 H Random Glucose 129 H Calcium 7.0 L Total Bilirubin 0.8 AST 77 H ALT 34 Alkaline Phosphatase 78 Total Creatine Kinase 2585 H Total Protein 6.4 Albumin 3.0 L Globulin 3.4 Albumin/Globulin Ratio 0.9 L 06/30/17 11:34 WBC RBC Hgb Hct MCV MCH MCHC RDW Plt Count MPV Neut % (Auto) Lymph % (Auto) Noble % (Auto) Eos % (Auto) Baso % (Auto) Neut # Lymph # Noble # Eos # Baso # pCO2 pO2 HCO3 ABG pH ABG Total CO2 ABG O2 Saturation ABG O2 Content ABG Base Excess ABG Hemoglobin ABG Carboxyhemoglobin POC ABG HHb (Measured) ABG Methemoglobin ABG O2 Capacity Jason Test A-a O2 Difference Hgb O2 Saturation Vent Mode Mechanical Rate FiO2 Tidal Volume PEEP Sodium Potassium Chloride Carbon Dioxide Anion Gap BUN Creatinine Est GFR ( Amer) Est GFR (Non-Af Amer) POC Glucose (mg/dL) 116 H Random Glucose Calcium Total Bilirubin AST ALT Alkaline Phosphatase Total Creatine Kinase Total Protein Albumin Globulin Albumin/Globulin Ratio Fingerstick Blood Sugar Results: 116 Review of Systems - Review of Systems Systems not reviewed;Unavailable: Intubated Critical Care Progress Note - Ventilator Checklist Head of Bed 30 Degrees: Yes Daily Sedation Vacation: Yes Daily Assessment of Readiness to Wean: Yes Daily Spontaneous Breathing Trial: Yes PUD Prophalyxis: Yes DVT Prophylaxis: Yes Assessment/Plan (1) Alcohol withdrawal Assessment and plan: 62yo M. PMHx ETOH abuse. p/w ETOH withdrawal, with signs of delirium tremens. Neuro: delirium tremens, now intubated and sedated with propofol gtt and versed gtt. Stopping propofol gtt, and slowly titrating down versed. Patient was previously very aggressive, requiring multiple security guards to hold him down. Pulm: intubated for airway protection. Starting PS trials. CV: hemodynamically stable Hem: no acute issues Renal: Banana bag, D51/2NS+MVI+Thiamine+Folate@100 Endo: no acute issues GI: NPO, Jevity@20, goal ID: no acute issues DVT proph - lovenox GI proph - protonix IV cole for strict I/O's during acute illness Code status - full code Critical Care time 35 minutes Multi-disciplinary rounds were performed with house staff, nursing, speech therapy, respiratory therapy, pharmacy and nutrition with integrated input from the primary team/attending and other consulting services. The documented time is cumulative and includes review of patient data/exams/labs/chart review and examination of the patient on rounds and throughout the day; time is exclusive of any procedures or teaching time. Current Visit: Yes Status: Acute
[2017-07-01] MEDS: Propofol 10 mg/ml 1,000 MG/100 ML VIAL IV SCH ×2 (00:47→10:56)
[2017-07-01] MEDS: Potassium Chl 20 mEq in D5-NS 1,000 ML IV SCH (04:00)
[2017-07-01 05:08] LABS: ABG ALLEN TEST YES; ABG MECHANICAL RATE 12; ARTERIAL BLOOD GAS HCO3 29.4 mmol/L (21-28); ARTERIAL BLOOD GAS MODE A/C; ARTERIAL BLOOD GAS O2 CAPACITY 16.4 mL/dL (16-24); ARTERIAL BLOOD GAS O2 CONTENT 16.1 ML/dL (15-23); ARTERIAL BLOOD GAS PH 7.48 (7.35-7.45); ARTERIAL BLOOD GAS PO2 147 mm/Hg (80-100); ARTERIAL BLOOD HGB O2 SAT 96.3 % (95.0-98.0); ATERIAL BLOOD GAS PEEP 5; HHB 1.7 % (0.0-5.0); METHEMOGLOBIN 0.9 % (0.0-3.0)
[2017-07-01 05:13] LABS: BASO % 0.7 % (0.0-2.0); EOS # 0.1 K/uL (0.0-0.7); EOS % 2.8 % (0.0-4.0); HEMATOCRIT 35.1 % (35.0-51.0); LYMPH # 0.5 K/uL (1.0-4.3); LYMPH % 10.6 % (20.0-40.0); MEAN CELL VOLUME 97.9 fl (80.0-94.0); MEAN CORPUSCULAR HEMOGLOBIN 33.1 pg (27.0-31.0); MEAN CORPUSCULAR HGB CONC 33.8 g/dL (33.0-37.0); MEAN PLATELET VOLUME 10.2 fl (7.2-11.7); MONO # 0.8 K/uL (0.0-0.8); MONO % 15.8 % (0.0-10.0); NEUT # 3.6 K/uL (1.8-7.0); NEUT % 70.1 % (50.0-75.0); RED CELL DISTRIBUTION WIDTH 13.2 % (11.5-14.5); WHITE BLOOD COUNT 5.1 K/uL (4.8-10.8)
[2017-07-01] MEDS: Midazolam 5 MG/ML 50 MG in Dextrose 5% In Water 90 ML IV SCH (05:18)
[2017-07-01 05:42] LABS: ALKALINE PHOSPHATASE 84 U/L (38-126); ALT/SGPT 35 U/L (21-72); AST/SGOT 73 U/L (17-59); BLOOD UREA NITROGEN 4 mg/dl (9-20); CALCIUM 7.4 mg/dL (8.4-10.2); CARBON DIOXIDE 28 mmol/L (22-30); CHLORIDE 105 mmol/L (98-107); GFR AFRICAN-AMERICAN > 60; GLUCOSE,RANDOM 120 mg/dL (75-110); POTASSIUM 3.2 MMOL/L (3.6-5.0); SODIUM 141 mmol/l (132-148); TOTAL PROTEIN 6.9 G/DL (6.3-8.2)
--- NOTE | 2017-07-01 08:08 | CP.PCM.PN ---
Subjective - Date & Time of Evaluation Date of Evaluation: 07/01/17 Time of Evaluation: 08:30 - Subjective Subjective: Patient seen and examined bedside. Intubated on PRVC / Ac mode 12/500/5/40 % , sedated on propofol and versed drip ABG 7.48/29/147/40 BP 122/70 HR 65 Tmax 99.9 I/O 3415/2350 CXR -RLL infiltrate Objective - Vital Signs/Intake and Output Vital Signs (last 24 hours): Temp Pulse Resp BP Pulse Ox 99.9 F H 65 13 127/70 100 07/01/17 04:00 07/01/17 06:33 07/01/17 06:33 07/01/17 06:33 07/01/17 06:33 Intake and Output: 07/01/17 07/01/17 06:59 18:59 Intake Total 2020 Output Total 1500 Balance 520 - Medications Medications: Current Medications Enoxaparin Sodium (Lovenox) 40 mg SC DAILY JAY PRN Reason: Protocol Last Admin: 06/30/17 08:53 Dose: 40 mg Folic Acid (Folic Acid) 1 mg PO DAILY JAY Last Admin: 06/28/17 12:06 Dose: Not Given Midazolam HCl 50 mg/ Dextrose 100 mls @ 4 mls/hr IV .Q24H JAY; 2 MG/HR PRN Reason: Protocol Last Admin: 07/01/17 05:18 Dose: 9 mg/hr, 18 mls/hr Propofol (Diprivan) 1,000 mg in 100 mls @ 2.463 mls/hr IV .Q24H JAY; 5 MCG/KG/ MIN PRN Reason: Protocol Stop: 07/02/17 00:19 Last Titration: 07/01/17 05:30 Dose: 10 mcg/kg/min, 4.926 mls/hr Vancomycin HCl 1 gm/ Sodium (Chloride) 250 mls @ 166.667 mls/hr IVPB DAILY JAY PRN Reason: Protocol Piperacillin Sod/Tazobactam (Sod 3.375 gm/ Sodium Chloride) 100 mls @ 100 mls/ hr IVPB Q6 JAY PRN Reason: Protocol Pantoprazole Sodium (Protonix Inj) 40 mg IVP DAILY JAY Last Admin: 06/30/17 08:53 Dose: 40 mg Thiamine HCl (Vitamin B1 Tab) 100 mg PO DAILY JAY Last Admin: 06/28/17 12:07 Dose: Not Given - Labs Labs: 07/01/17 04:30 07/01/17 04:30 PT 13.1 Seconds (9.8-13.1) 06/27/17 03:58 INR 1.2 (0.9-1.2) 06/27/17 03:58 APTT 32.6 Seconds (25.6-37.1) 06/27/17 03:58 - Constitutional Appears: Chronically Ill, Other (intubated on MV , sedated ) - Head Exam Head Exam: ATRAUMATIC - Eye Exam Eye Exam: EOMI, PERRL - ENT Exam ENT Exam: Mucous Membranes Dry, Normal Exam - Neck Exam Neck Exam: Normal Inspection - Respiratory Exam Respiratory Exam: Clear to Ausculation Bilateral, NORMAL BREATHING PATTERN. absent: Rales, Rhonchi, Wheezes, Respiratory Distress - Cardiovascular Exam Cardiovascular Exam: REGULAR RHYTHM, RRR, +S1, +S2. absent: JVD - GI/Abdominal Exam GI & Abdominal Exam: Soft, Normal Bowel Sounds. absent: Distended, Guarding, Tenderness, Rebound - Rectal Exam Rectal Exam: Deferred - Extremities Exam Extremities Exam: Full ROM, Normal Capillary Refill, Normal Inspection. absent : Pedal Edema - Neurological Exam Additional comments: sedated - Skin Skin Exam: Dry, Normal Color, Warm Assessment and Plan - Assessment and Plan (Free Text) Assessment: 62 y/o male was brought to the ED by EMS after [facility] confused and disoriented.Patient found to be altered, temp 102 . LP performed in ER and meningitis ruled out. Patient was found tohave alcohol on him CXR cardiomegaly with possible RLL infiltrate CT head neg Patient was admitted to ICU for progressively worsening alcohol withdrawal, delirium tremens. 06/28 Intubated for airway protection. 1. Altered mental status likely secondary to Delirium Tremens intubated for airway protection on PRVC AC mode 12/500/5/40%, sedated on propofol and versed drip LP performed in the ER ( bec of fever and AMS) CSF: Gram stain negative, cell Count : neg drug screen negative, ETOH neg no WBC, UA negative, lipase negative, procalcitonin normal CXR shows RLL infiltrate --most likely aspiration . start Zosyn and vanco IV 2. Delirium tremens EtOH less than 10 patient presented with disorientation, tachycardia, hypertension, hallucinations , hyperthermia was on Precedex drip in ICU ,now on Propofol and Versed drip Ativan prn on Thiamine IV, folate IV 3. RLL pneumonia Most likely aspiration strat Zosyn and vanco IV 4. Rhabdomyolysis improving with hydration Continue IVF. Change fluids to 1/2NS with 20 MEQ KCL 5. Azotemia/ dehydration Continue hydration 6. Elevated troponin, mild Troponin 0.12 No evidence of ischemia or infarct on EKG ECHO:normal wall motion and LV function 7.Transaminitis sec to Alcohol 8. Thrombocytopenia sec to ETOH 9. Hypokalemia replace with KCl runs started on tube feeding Jevity with goal 70 ml/hr Start free water flushes Q6 ml 10.DVT prophylaxis Lovenox
--- NOTE | 2017-07-01 08:22 | CP.CCUPN ---
CCU Subjective - Physician Review Events Since Last Encounter (Free Text): 07/01/17 16:51 The patient was Seen/interviewed and examined by me at the bedside, Medical records reviewed and Management issues were discussed and formulated with the house staff Sedated and orally intubated No Vasopressors Afebrile, NSR on the monitor Pt. suctioned, Thick goncalves colored blood tinged Resp secretions removed. Last 24H I&O 3415/2350 Tolerating tube feeing with Jevity @ 60 cc/H CCU Objective - Vital Signs / Intake & Output Vital Signs (Last 4 hours): Vital Signs Temp Pulse Resp BP Pulse Ox 07/01/17 08:00 99.4 F 71 20 134/77 100 07/01/17 06:33 65 13 127/70 100 07/01/17 06:00 69 19 130/78 100 07/01/17 05:00 74 18 138/78 99 Intake and Output (Last 8hrs): Intake & Output 06/30/17 07/01/17 07/01/17 22:59 06:59 14:59 Intake Total 725 1585 160 Output Total 150 1500 Balance 575 85 160 Intake: IV 450 1105 100 Intake, Piggyback 100 Oral 135 480 Tube Feeding 40 60 Output: Urine 150 1500 Urethral (Archer) 150 Urine, Voided 1500 Other: # Bowel Movements 1 - Physical Exam Head: Positive for: Atraumatic, Normocephalic Pupils: Positive for: PERRL Extroacular Muscles: Positive for: EOMI Mouth: Positive for: Dry Neck: Positive for: Normal Range of Motion. Negative for: JVD Respiratory/Chest: Positive for: Decreased Breath Sounds. Negative for: Accessory Muscle Use, Wheezes Cardiovascular: Positive for: Regular Rate and Rhythm, Tachycardic. Negative for: Murmurs, Rub Abdomen: Positive for: Normal Bowel Sounds. Negative for: Tenderness, Distention, Mass/Organomegaly Lower Extremity: Positive for: Edema, Erythema Neurological: Positive for: Motor Func Grossly Intact, Normal Sensory Function Skin: Positive for: Warm, Dry. Negative for: Rashes Psychiatric: Positive for: Other (sedated) - Medications Active Medications: Active Medications Generic Name Dose Route Start Last Admin Trade Name Freq PRN Reason Stop Dose Admin Enoxaparin Sodium 40 mg 06/27/17 09:00 06/30/17 08:53 Lovenox SC 40 mg DAILY JAY Administration Protocol Folic Acid 1 mg 06/27/17 09:00 06/28/17 12:06 Folic Acid PO Not Given DAILY [facility] Midazolam HCl 50 mg/ Dextrose 100 mls @ 4 mls/hr 06/30/17 10:30 07/01/17 05: 18 IV 9 mg/hr .Q24H JAY 18 mls/hr Protocol Administration 2 MG/HR Propofol 1,000 mg in 100 mls @ 2.463 mls/hr 07/01/17 00:30 07/01/17 05:30 Diprivan IV 07/02/17 00:19 10 mcg/kg/min .Q24H JAY 4.926 mls/hr Protocol Titration 5 MCG/KG/MIN Vancomycin HCl 1 gm/ Sodium 250 mls @ 166.667 mls/hr 07/01/17 09:00 Chloride IVPB DAILY [facility] Protocol Piperacillin Sod/Tazobactam 100 mls @ 100 mls/hr 07/01/17 10:00 Sod 3.375 gm/ Sodium Chloride IVPB Q6 JAY Protocol Potassium Chloride 10 meq/ 55 mls @ 55 mls/hr 07/01/17 09:00 Sodium Chloride IV 07/01/17 10:59 Q1 JAY Potassium Chloride 20 meq/ 1,010 mls @ 80 mls/hr 07/01/17 08:30 Sodium Chloride IV 07/02/17 08:18 .[id number] [facility] Pantoprazole Sodium 40 mg 06/29/17 09:00 06/30/17 08:53 Protonix Inj IVP 40 mg DAILY [facility] Administration Thiamine HCl 100 mg 06/27/17 09:00 06/28/17 12:07 Vitamin B1 Tab PO Not Given DAILY [facility] - Patient Studies Lab Studies: Microbiology Studies 06/27/17 03:50 Blood Culture - Preliminary Blood NO GROWTH AFTER 4 DAYS 06/27/17 04:20 Blood Culture - Preliminary Blood NO GROWTH AFTER 4 DAYS 06/27/17 04:29 Gram Stain - Final Cerebral Spinal Fluid CSF Culture - Preliminary NO GROWTH AFTER 3 DAYS Lab Studies 07/01/17 07/01/17 07/01/17 Range/Units 05:10 05:00 04:30 WBC (4.8-10.8) K/uL RBC (4.40-5.90) Mil/uL Hgb (12.0-18.0) g/dL Hct (35.0-51.0) % MCV (80.0-94.0) fl MCH (27.0-31.0) pg MCHC (33.0-37.0) g/dL RDW (11.5-14.5) % Plt Count (130-400) K/uL MPV (7.2-11.7) fl Neut % (Auto) (50.0-75.0) % Lymph % (Auto) (20.0-40.0) % [place] % (Auto) (0.0-10.0) % Eos % (Auto) (0.0-4.0) % Baso % (Auto) (0.0-2.0) % Neut # (1.8-7.0) K/uL Lymph # (1.0-4.3) K/uL [place] # (0.0-0.8) K/uL Eos # (0.0-0.7) K/uL Baso # (0.0-0.2) K/uL pCO2 40 (35-45) mm/Hg pO2 147 H (80-100) mm/Hg HCO3 29.4 H (21-28) mmol/L ABG pH 7.48 H (7.35-7.45) ABG Total CO2 31.0 H (22-28) mmol/L ABG O2 Saturation 98.3 H (95-98) % ABG O2 Content 16.1 (15-23) ML/dL ABG Base Excess 5.8 H (-2.0-3.0) mmol/L ABG Hemoglobin 11.7 (11.7-17.4) g/dL ABG Carboxyhemoglobin 1.0 (0.5-1.5) % POC ABG HHb (Measured) 1.7 (0.0-5.0) % ABG Methemoglobin 0.9 (0.0-3.0) % ABG O2 Capacity 16.4 (16-24) mL/dL Jason Test Yes A-a O2 Difference 88.0 mm/Hg Hgb O2 Saturation 96.3 (95.0-98.0) % Vent Mode A/c Mechanical Rate 12 FiO2 40.0 % Tidal Volume 500 PEEP 5 Sodium 141 (132-148) mmol/l Potassium 3.2 L (3.6-5.0) MMOL/L Chloride 105 (98-107) mmol/L Carbon Dioxide 28 (22-30) mmol/L Anion Gap 11 (10-20) BUN 4 L (9-20) mg/dl Creatinine 0.6 L (0.8-1.5) mg/dl Est GFR ( Amer) > 60 Est GFR (Non-Af Amer) > 60 POC Glucose (mg/dL) 114 H (65-110) mg/dL Random Glucose 120 H (75-110) mg/dL Calcium 7.4 L (8.4-10.2) mg/dL Total Bilirubin 1.0 (0.2-1.3) mg/dl AST 73 H (17-59) U/L ALT 35 (21-72) U/L Alkaline Phosphatase 84 (38-126) U/L Total Protein 6.9 (6.3-8.2) G/DL Albumin 3.4 L (3.5-5.0) g/dL Globulin 3.5 (2.2-3.9) gm/dL Albumin/Globulin Ratio 1.0 (1.0-2.1) 07/01/17 06/30/17 06/30/17 Range/Units 04:30 20:42 15:58 WBC 5.1 (4.8-10.8) K/uL RBC 3.58 L (4.40-5.90) Mil/uL Hgb 11.9 L (12.0-18.0) g/dL Hct 35.1 (35.0-51.0) % MCV 97.9 H (80.0-94.0) fl MCH 33.1 H (27.0-31.0) pg MCHC 33.8 (33.0-37.0) g/dL RDW 13.2 (11.5-14.5) % Plt Count 100 L (130-400) K/uL MPV 10.2 (7.2-11.7) fl Neut % (Auto) 70.1 (50.0-75.0) % Lymph % (Auto) 10.6 L (20.0-40.0) % [place] % (Auto) 15.8 H (0.0-10.0) % Eos % (Auto) 2.8 (0.0-4.0) % Baso % (Auto) 0.7 (0.0-2.0) % Neut # 3.6 (1.8-7.0) K/uL Lymph # 0.5 L (1.0-4.3) K/uL [place] # 0.8 (0.0-0.8) K/uL Eos # 0.1 (0.0-0.7) K/uL Baso # 0.0 (0.0-0.2) K/uL pCO2 (35-45) mm/Hg pO2 (80-100) mm/Hg HCO3 (21-28) mmol/L ABG pH (7.35-7.45) ABG Total CO2 (22-28) mmol/L ABG O2 Saturation (95-98) % ABG O2 Content (15-23) ML/dL ABG Base Excess (-2.0-3.0) mmol/L ABG Hemoglobin (11.7-17.4) g/dL ABG Carboxyhemoglobin (0.5-1.5) % POC ABG HHb (Measured) (0.0-5.0) % ABG Methemoglobin (0.0-3.0) % ABG O2 Capacity (16-24) mL/dL Jason Test A-a O2 Difference mm/Hg Hgb O2 Saturation (95.0-98.0) % Vent Mode Mechanical Rate FiO2 % Tidal Volume PEEP Sodium (132-148) mmol/l Potassium (3.6-5.0) MMOL/L Chloride (98-107) mmol/L Carbon Dioxide (22-30) mmol/L Anion Gap (10-20) BUN (9-20) mg/dl Creatinine (0.8-1.5) mg/dl Est GFR ( Amer) Est GFR (Non-Af Amer) POC Glucose (mg/dL) 104 128 H (65-110) mg/dL Random Glucose (75-110) mg/dL Calcium (8.4-10.2) mg/dL Total Bilirubin (0.2-1.3) mg/dl AST (17-59) U/L ALT (21-72) U/L Alkaline Phosphatase (38-126) U/L Total Protein (6.3-8.2) G/DL Albumin (3.5-5.0) g/dL Globulin (2.2-3.9) gm/dL Albumin/Globulin Ratio (1.0-2.1) 06/30/17 Range/Units 11:34 WBC (4.8-10.8) K/uL RBC (4.40-5.90) Mil/uL Hgb (12.0-18.0) g/dL Hct (35.0-51.0) % MCV (80.0-94.0) fl MCH (27.0-31.0) pg MCHC (33.0-37.0) g/dL RDW (11.5-14.5) % Plt Count (130-400) K/uL MPV (7.2-11.7) fl Neut % (Auto) (50.0-75.0) % Lymph % (Auto) (20.0-40.0) % [place] % (Auto) (0.0-10.0) % Eos % (Auto) (0.0-4.0) % Baso % (Auto) (0.0-2.0) % Neut # (1.8-7.0) K/uL Lymph # (1.0-4.3) K/uL [place] # (0.0-0.8) K/uL Eos # (0.0-0.7) K/uL Baso # (0.0-0.2) K/uL pCO2 (35-45) mm/Hg pO2 (80-100) mm/Hg HCO3 (21-28) mmol/L ABG pH (7.35-7.45) ABG Total CO2 (22-28) mmol/L ABG O2 Saturation (95-98) % ABG O2 Content (15-23) ML/dL ABG Base Excess (-2.0-3.0) mmol/L ABG Hemoglobin (11.7-17.4) g/dL ABG Carboxyhemoglobin (0.5-1.5) % POC ABG HHb (Measured) (0.0-5.0) % ABG Methemoglobin (0.0-3.0) % ABG O2 Capacity (16-24) mL/dL Jason Test A-a O2 Difference mm/Hg Hgb O2 Saturation (95.0-98.0) % Vent Mode Mechanical Rate FiO2 % Tidal Volume PEEP Sodium (132-148) mmol/l Potassium (3.6-5.0) MMOL/L Chloride (98-107) mmol/L Carbon Dioxide (22-30) mmol/L Anion Gap (10-20) BUN (9-20) mg/dl Creatinine (0.8-1.5) mg/dl Est GFR ( Amer) Est GFR (Non-Af Amer) POC Glucose (mg/dL) 116 H (65-110) mg/dL Random Glucose (75-110) mg/dL Calcium (8.4-10.2) mg/dL Total Bilirubin (0.2-1.3) mg/dl AST (17-59) U/L ALT (21-72) U/L Alkaline Phosphatase (38-126) U/L Total Protein (6.3-8.2) G/DL Albumin (3.5-5.0) g/dL Globulin (2.2-3.9) gm/dL Albumin/Globulin Ratio (1.0-2.1) Laboratory Results - last 24 hr 06/30/17 06/30/17 06/30/17 11:34 15:58 20:42 WBC RBC Hgb Hct MCV MCH MCHC RDW Plt Count MPV Neut % (Auto) Lymph % (Auto) [place] % (Auto) Eos % (Auto) Baso % (Auto) Neut # Lymph # [place] # Eos # Baso # pCO2 pO2 HCO3 ABG pH ABG Total CO2 ABG O2 Saturation ABG O2 Content ABG Base Excess ABG Hemoglobin ABG Carboxyhemoglobin POC ABG HHb (Measured) ABG Methemoglobin ABG O2 Capacity Jason Test A-a O2 Difference Hgb O2 Saturation Vent Mode Mechanical Rate FiO2 Tidal Volume PEEP Sodium Potassium Chloride Carbon Dioxide Anion Gap BUN Creatinine Est GFR ( Amer) Est GFR (Non-Af Amer) POC Glucose (mg/dL) 116 H 128 H 104 Random Glucose Calcium Total Bilirubin AST ALT Alkaline Phosphatase Total Protein Albumin Globulin Albumin/Globulin Ratio 07/01/17 07/01/17 07/01/17 04:30 04:30 05:00 WBC 5.1 RBC 3.58 L Hgb 11.9 L Hct 35.1 MCV 97.9 H MCH 33.1 H MCHC 33.8 RDW 13.2 Plt Count 100 L MPV 10.2 Neut % (Auto) 70.1 Lymph % (Auto) 10.6 L [place] % (Auto) 15.8 H Eos % (Auto) 2.8 Baso % (Auto) 0.7 Neut # 3.6 Lymph # 0.5 L [place] # 0.8 Eos # 0.1 Baso # 0.0 pCO2 40 pO2 147 H HCO3 29.4 H ABG pH 7.48 H ABG Total CO2 31.0 H ABG O2 Saturation 98.3 H ABG O2 Content 16.1 ABG Base Excess 5.8 H ABG Hemoglobin 11.7 ABG Carboxyhemoglobin 1.0 POC ABG HHb (Measured) 1.7 ABG Methemoglobin 0.9 ABG O2 Capacity 16.4 Jason Test Yes A-a O2 Difference 88.0 Hgb O2 Saturation 96.3 Vent Mode A/c Mechanical Rate 12 FiO2 40.0 Tidal Volume 500 PEEP 5 Sodium 141 Potassium 3.2 L Chloride 105 Carbon Dioxide 28 Anion Gap 11 BUN 4 L Creatinine 0.6 L Est GFR ( Amer) > 60 Est GFR (Non-Af Amer) > 60 POC Glucose (mg/dL) Random Glucose 120 H Calcium 7.4 L Total Bilirubin 1.0 AST 73 H ALT 35 Alkaline Phosphatase 84 Total Protein 6.9 Albumin 3.4 L Globulin 3.5 Albumin/Globulin Ratio 1.0 07/01/17 05:10 WBC RBC Hgb Hct MCV MCH MCHC RDW Plt Count MPV Neut % (Auto) Lymph % (Auto) [place] % (Auto) Eos % (Auto) Baso % (Auto) Neut # Lymph # [place] # Eos # Baso # pCO2 pO2 HCO3 ABG pH ABG Total CO2 ABG O2 Saturation ABG O2 Content ABG Base Excess ABG Hemoglobin ABG Carboxyhemoglobin POC ABG HHb (Measured) ABG Methemoglobin ABG O2 Capacity Jason Test A-a O2 Difference Hgb O2 Saturation Vent Mode Mechanical Rate FiO2 Tidal Volume PEEP Sodium Potassium Chloride Carbon Dioxide Anion Gap BUN Creatinine Est GFR ( Amer) Est GFR (Non-Af Amer) POC Glucose (mg/dL) 114 H Random Glucose Calcium Total Bilirubin AST ALT Alkaline Phosphatase Total Protein Albumin Globulin Albumin/Globulin Ratio Fingerstick Blood Sugar Results: 114 Review of Systems - Review of Systems Systems not reviewed;Unavailable: Intubated Critical Care Progress Note - Ventilator Checklist Head of Bed 30 Degrees: Yes Daily Sedation Vacation: Yes Daily Assessment of Readiness to Wean: Yes Daily Spontaneous Breathing Trial: Yes PUD Prophalyxis: Yes DVT Prophylaxis: Yes Oral Care with Chlorhexidine Gluconate {CHG}: Yes - Extremities/Vascular Does the Patient have a Central Venous Catheter?: No Does the Patient need a Central Venous Catheter?: No Does the Patient have a Archer Catheter?: Yes Does the Patient need a Archer Catheter?: Yes Assessment/Plan (1) Altered mental status Current Visit: Yes Status: Acute Comment: Intubated for airway protection, Continue Thiamine and folate PRN Ativan (2) Alcohol withdrawal Current Visit: Yes Status: Acute (3) Sepsis Current Visit: Yes Status: Acute Comment: Spsis due to RLL infiltrate strated on IV vanco and Zosyn (4) Rhabdomyolysis Current Visit: Yes Status: Acute Comment: Continue IV Fluids Improved renal function
[2017-07-01] MEDS: Enoxaparin 40 mg Syringe SC SCH (08:38)
[2017-07-01] MEDS: Piperacillin/Tazobact 3.375 GM in Sodium Chloride 0.9% 100 ML IVPB SCH ×3 (09:18→22:26)
[2017-07-01] MEDS: Potassium Chloride 20 MEQ in Sodium Chloride 0.45% 1,000 ML IV SCH (10:45)
--- NOTE | 2017-07-01 11:45 | RAD ---
HISTORY: intubated COMPARISON: 06/30/2017 FINDINGS: LUNGS: No active pulmonary disease. PLEURA: No significant pleural effusion identified, no pneumothorax apparent. CARDIOVASCULAR: Normal heart size. ET tube and NG tube are unchanged. OSSEOUS STRUCTURES: No significant abnormalities. VISUALIZED UPPER ABDOMEN: Normal. OTHER FINDINGS: None. IMPRESSION: No active disease.
[2017-07-02] MEDS: Potassium Chloride 20 MEQ in Sodium Chloride 0.45% 1,000 ML IV SCH ×2 (03:11→05:50)
[2017-07-02] MEDS: Piperacillin/Tazobact 3.375 GM in Sodium Chloride 0.9% 100 ML IVPB SCH ×4 (04:00→22:06)
[2017-07-02 04:33] LABS: ABG ALLEN TEST YES; ABG MECHANICAL RATE 14; ARTERIAL BLOOD GAS HCO3 29.2 mmol/L (21-28); ARTERIAL BLOOD GAS MODE A/C; ARTERIAL BLOOD GAS O2 CONTENT 15.7 ML/dL (15-23); ARTERIAL BLOOD GAS PH 7.46 (7.35-7.45); ARTERIAL BLOOD GAS PO2 128 mm/Hg (80-100); ARTERIAL BLOOD HGB O2 SAT 96.4 % (95.0-98.0); ATERIAL BLOOD GAS PEEP 5; CARBOXYHEMOGLOBIN 0.7 % (0.5-1.5); HHB 2.1 % (0.0-5.0); METHEMOGLOBIN 0.8 % (0.0-3.0)
[2017-07-02 05:06] LABS: HEMATOCRIT 34.6 % (35.0-51.0); MEAN CELL VOLUME 98.6 fl (80.0-94.0); MEAN CORPUSCULAR HEMOGLOBIN 32.5 pg (27.0-31.0); MEAN CORPUSCULAR HGB CONC 32.9 g/dL (33.0-37.0); RED CELL DISTRIBUTION WIDTH 13.1 % (11.5-14.5); WHITE BLOOD COUNT 4.8 K/uL (4.8-10.8)
[2017-07-02 05:17] LABS: ALKALINE PHOSPHATASE 95 U/L (38-126); ALT/SGPT 34 U/L (21-72); AST/SGOT 49 U/L (17-59); BILIRUBIN,TOTAL 0.7 mg/dl (0.2-1.3); BLOOD UREA NITROGEN 9 mg/dl (9-20); CALCIUM 7.6 mg/dL (8.4-10.2); CARBON DIOXIDE 28 mmol/L (22-30); CHLORIDE 105 mmol/L (98-107); GFR AFRICAN-AMERICAN > 60; GLUCOSE,RANDOM 130 mg/dL (75-110); POTASSIUM 3.4 MMOL/L (3.6-5.0); SODIUM 141 mmol/l (132-148); TOTAL PROTEIN 6.7 G/DL (6.3-8.2)
[2017-07-02] MEDS: Propofol 10 mg/ml 1,000 MG/100 ML VIAL IV SCH ×3 (05:51→09:46)
[2017-07-02] MEDS: Enoxaparin 40 mg Syringe SC SCH (08:20)
[2017-07-02] MEDS ORDERED: Potassium Chloride 20 mEq/15 ml LIQ UD PO ONE (08:45)
--- NOTE | 2017-07-02 10:48 | RAD ---
PROCEDURE: CHEST RADIOGRAPH, 1 VIEW HISTORY: intubated COMPARISON: 07/01/2017 FINDINGS: LUNGS: Clear. PLEURA: No pneumothorax or pleural fluid seen. CARDIOVASCULAR: Normal heart size. ET tube, NG tube unchanged. OSSEOUS STRUCTURES: No significant abnormalities. VISUALIZED UPPER ABDOMEN: Normal. OTHER FINDINGS: None. IMPRESSION: No infiltrate. Lines and tubes unchanged.
--- NOTE | 2017-07-02 12:20 | CP.PCM.PN ---
Subjective - Date & Time of Evaluation Date of Evaluation: 07/02/17 Time of Evaluation: 12:00 - Subjective Subjective: Pt seen and examined Remains intubated on Vent restless when Sedation dose is decreased , was started on Librium No fever Tolerating tube feeding Objective - Vital Signs/Intake and Output Vital Signs (last 24 hours): Temp Pulse Resp BP Pulse Ox 98.5 F 74 24 127/77 100 07/02/17 08:00 07/02/17 10:00 07/02/17 10:00 07/02/17 10:00 07/02/17 10:00 Intake and Output: 07/02/17 07/02/17 06:59 18:59 Intake Total 878 745 Output Total 1000 Balance -122 745 - Medications Medications: Current Medications Chlordiazepoxide (Librium) 100 mg PO Q8 [facility] Last Admin: 07/02/17 11:51 Dose: 100 mg Enoxaparin Sodium (Lovenox) 40 mg SC DAILY [facility] PRN Reason: Protocol Last Admin: 07/02/17 08:20 Dose: 40 mg Folic Acid (Folic Acid) 1 mg PO DAILY [facility] Last Admin: 07/02/17 09:24 Dose: 1 mg Hydromorphone HCl (Dilaudid) 1 mg IVP Q4 PRN PRN Reason: Agitation Last Admin: 07/02/17 11:50 Dose: 1 mg Vancomycin HCl 1 gm/ Sodium (Chloride) 250 mls @ 166.667 mls/hr IVPB DAILY [facility] PRN Reason: Protocol Last Admin: 07/02/17 08:21 Dose: 166.667 mls/hr Piperacillin Sod/Tazobactam (Sod 3.375 gm/ Sodium Chloride) 100 mls @ 100 mls/ hr IVPB Q6 [facility] PRN Reason: Protocol Last Admin: 07/02/17 09:21 Dose: 100 mls/hr Midazolam HCl 50 mg/ Sodium (Chloride) 100 mls @ 4 mls/hr IV .Q24H [facility]; 2 MG/HR PRN Reason: Protocol Last Admin: 07/02/17 08:21 Dose: 4 mls/hr Pantoprazole Sodium (Protonix Inj) 40 mg IVP DAILY [facility] Last Admin: 07/02/17 08:20 Dose: 40 mg Thiamine HCl (Vitamin B1 Tab) 100 mg PO DAILY [facility] Last Admin: 07/02/17 08:24 Dose: 100 mg - Labs Labs: 07/02/17 04:20 07/02/17 04:20 PT 13.1 Seconds (9.8-13.1) 06/27/17 03:58 INR 1.2 (0.9-1.2) 06/27/17 03:58 APTT 32.6 Seconds (25.6-37.1) 06/27/17 03:58 - Constitutional Appears: Unkempt, Older Than Stated Age, Chronically Ill, Other (Intubated on Vent) - Head Exam Head Exam: NORMAL INSPECTION, NORMOCEPHALIC - Eye Exam Eye Exam: EOMI, Normal appearance, PERRL - ENT Exam ENT Exam: Mucous Membranes Dry, Normal External Ear Exam - Neck Exam Neck Exam: Full ROM. absent: Meningismus - Respiratory Exam Respiratory Exam: Rales, Rhonchi Additional comments: Intubated on Vent - Cardiovascular Exam Cardiovascular Exam: REGULAR RHYTHM, +S1, +S2 - GI/Abdominal Exam GI & Abdominal Exam: Distended, Soft, Normal Bowel Sounds - Extremities Exam Extremities Exam: Normal Capillary Refill, Pedal Edema - Neurological Exam Additional comments: Sedated - Skin Skin Exam: Dry, Normal Color, Warm Additional comments: old lichenified rash, luiz on LE Assessment and Plan - Assessment and Plan (Free Text) Assessment: 62 y/o male was brought to the ED by EMS after he was found outside [facility] confused and disoriented.Patient found to be altered, temp 102 . LP performed in ER and meningitis ruled out. Patient was found tohave alcohol on him CXR cardiomegaly with possible RLL infiltrate CT head neg Patient was admitted to ICU for progressively worsening alcohol withdrawal, delirium tremens. 06/28 Intubated for airway protection. 1. Altered mental status likely secondary to Delirium Tremens intubated for airway protection on PRVC AC mode 12/500/5/40%, sedated on propofol and versed drip LP performed in the ER ( bec of fever and AMS) CSF: Gram stain negative, cell Count : neg drug screen negative, ETOH neg no WBC, UA negative, lipase negative, procalcitonin normal 2. Delirium tremens EtOH less than 10 patient presented with disorientation, tachycardia, hypertension, hallucinations , hyperthermia was on Precedex drip in ICU ,now on Propofol and Versed drip Ativan prn on Thiamine IV, folate IV 3. RLL pneumonia Most likely aspiration on Zosyn and vanco IV 4. Rhabdomyolysis improving with hydration Continue IVF. Change fluids to 1/2NS with 20 MEQ KCL 5. Azotemia/ dehydration Continue hydration 6. Elevated troponin, mild Troponin 0.12 No evidence of ischemia or infarct on EKG ECHO:normal wall motion and LV function 7.Transaminitis sec to Alcohol 8. Thrombocytopenia sec to ETOH 9. Hypokalemia replace with KCl runs started on tube feeding Jevity with goal 70 ml/hr Start free water flushes Q6 [id number] ml 10.DVT prophylaxis Lovenox
--- NOTE | 2017-07-02 12:31 | CP.CCUPN ---
CCU Subjective - Physician Review Subjective (Free Text): Orally intubated 5 days ago for airway protection post BZDP administration for breakthrough agitation while on Precedex infusion. Still intermittently agitated , Librium has fallen off the Med list and is now on Versed 4 mg/ hr and 20mcg/kg /min Propofol. Narcotics added today for analog-sedation and Librium re- started. Breathing 12 on AC12, 50ml, 40% PEEP 5, SPO2 100%. Other vitals and I/O's reviewed. T max 100F last 24H; no excessive tachycardia noted, nor any overt diaphoresis. ROS: Unobtainable due to altered mental status. No other pertinent negs or positives on 10+ system review. PMSFH: All other Nursing and physician documentation reviewed to date; no new pertinent info noted relevant to current medical problems. CXR: ETT position OK above rex, RLL infiltrates (my interp). IMPRESSION / MAJOR PROBLEMS NOW: 1. AMS: Acute ETOH intoxication vs. Occult Seizure Activity with prolonged post-ictal state. 2. ETOH Withdrawal Syndrome 3. Mild Azotemia, r/o Rhabdomyolysis 4. Acute Hypoxemic Resp failure 2 Bilateral pneumonia ( Aspiration type) PLAN: 1. Resume Librium, wean off Versed. If excessive sedation noted, will taper Librium later. 2. Empiric Vanco/Zosyn 3. Supplement K, check Mg / Phos 4. IVF hydration, last CK= 2585, 2 days ago. CCU Objective - Vital Signs / Intake & Output Vital Signs (Last 4 hours): Vital Signs Temp Pulse Resp BP Pulse Ox 07/02/17 12:00 96.8 F L 55 L 12 114/71 98 07/02/17 10:00 74 24 127/77 100 07/02/17 09:00 65 13 132/89 98 Intake and Output (Last 8hrs): Intake & Output 07/01/17 07/02/17 07/02/17 22:59 06:59 14:59 Intake Total 1588 140 745 Output Total 1700 1000 Balance -112 -860 745 Intake: IV 598 0 105 Intake, Piggyback 200 350 Oral 70 Tube Feeding 420 140 140 Free Water Flush 300 150 Output: Urine 1700 1000 Urethral (Archer) 1700 1000 - Physical Exam Head: Positive for: Atraumatic, Normocephalic Pupils: Positive for: PERRL Extroacular Muscles: Positive for: EOMI Mouth: Positive for: Dry Neck: Positive for: Normal Range of Motion. Negative for: JVD Respiratory/Chest: Positive for: Decreased Breath Sounds. Negative for: Accessory Muscle Use, Wheezes Cardiovascular: Positive for: Regular Rate and Rhythm, Tachycardic. Negative for: Murmurs, Rub Abdomen: Positive for: Normal Bowel Sounds. Negative for: Tenderness, Distention, Mass/Organomegaly Lower Extremity: Positive for: Edema, Erythema Neurological: Positive for: Motor Func Grossly Intact, Normal Sensory Function Skin: Positive for: Warm, Dry. Negative for: Rashes Psychiatric: Positive for: Other (sedated) - Medications Active Medications: Active Medications Generic Name Dose Route Start Last Admin Trade Name Freq PRN Reason Stop Dose Admin Chlordiazepoxide 100 mg 07/02/17 10:45 07/02/17 11:51 Librium PO 100 mg Q8 JAY Administration Enoxaparin Sodium 40 mg 06/27/17 09:00 07/02/17 08:20 Lovenox SC 40 mg DAILY JAY Administration Protocol Folic Acid 1 mg 06/27/17 09:00 07/02/17 09:24 Folic Acid PO 1 mg DAILY JAY Administration Hydromorphone HCl 1 mg 07/02/17 10:52 07/02/17 11:50 Dilaudid IVP 1 mg Q4 PRN Administration Agitation Vancomycin HCl 1 gm/ Sodium 250 mls @ 166.667 mls/hr 07/01/17 09:00 07/02/17 08:21 Chloride IVPB 166.667 mls/hr DAILY JAY Administration Protocol Piperacillin Sod/Tazobactam 100 mls @ 100 mls/hr 07/01/17 10:00 07/02/17 09: 21 Sod 3.375 gm/ Sodium Chloride IVPB 100 mls/hr Q6 JAY Administration Protocol Midazolam HCl 50 mg/ Sodium 100 mls @ 4 mls/hr 07/01/17 10:59 07/02/17 08:21 Chloride IV 4 mls/hr .Q24H JAY Administration Protocol 2 MG/HR Pantoprazole Sodium 40 mg 06/29/17 09:00 07/02/17 08:20 Protonix Inj IVP 40 mg DAILY JAY Administration Thiamine HCl 100 mg 06/27/17 09:00 07/02/17 08:24 Vitamin B1 Tab PO 100 mg DAILY JAY Administration - Patient Studies Lab Studies: Microbiology Studies 06/27/17 04:29 Gram Stain - Final Cerebral Spinal Fluid CSF Culture - Final No growth. 06/27/17 03:50 Blood Culture - Final Blood NO GROWTH AFTER 5 DAYS Gram Stain - Final TEST NOT PERFORMED 06/27/17 04:20 Blood Culture - Final Blood NO GROWTH AFTER 5 DAYS Gram Stain - Final TEST NOT PERFORMED Lab Studies 07/02/17 07/02/17 07/02/17 Range/Units 11:47 05:39 04:20 WBC (4.8-10.8) K/uL RBC (4.40-5.90) Mil/uL Hgb (12.0-18.0) g/dL Hct (35.0-51.0) % MCV (80.0-94.0) fl MCH (27.0-31.0) pg MCHC (33.0-37.0) g/dL RDW (11.5-14.5) % Plt Count (130-400) K/uL pCO2 42 (35-45) mm/Hg pO2 128 H (80-100) mm/Hg HCO3 29.2 H (21-28) mmol/L ABG pH 7.46 H (7.35-7.45) ABG Total CO2 31.2 H (22-28) mmol/L ABG O2 Saturation 97.9 (95-98) % ABG O2 Content 15.7 (15-23) ML/dL ABG Base Excess 5.5 H (-2.0-3.0) mmol/L ABG Hemoglobin 11.4 L (11.7-17.4) g/dL ABG Carboxyhemoglobin 0.7 (0.5-1.5) % POC ABG HHb (Measured) 2.1 (0.0-5.0) % ABG Methemoglobin 0.8 (0.0-3.0) % ABG O2 Capacity 16.0 (16-24) mL/dL Jason Test Yes A-a O2 Difference 105.0 mm/Hg Hgb O2 Saturation 96.4 (95.0-98.0) % Vent Mode A/c Mechanical Rate 14 FiO2 40.0 % Tidal Volume 500 PEEP 5 Sodium (132-148) mmol/l Potassium (3.6-5.0) MMOL/L Chloride (98-107) mmol/L Carbon Dioxide (22-30) mmol/L Anion Gap (10-20) BUN (9-20) mg/dl Creatinine (0.8-1.5) mg/dl Est GFR ( Amer) Est GFR (Non-Af Amer) POC Glucose (mg/dL) 138 H 105 (65-110) mg/dL Random Glucose (75-110) mg/dL Calcium (8.4-10.2) mg/dL Total Bilirubin (0.2-1.3) mg/dl AST (17-59) U/L ALT (21-72) U/L Alkaline Phosphatase (38-126) U/L Total Protein (6.3-8.2) G/DL Albumin (3.5-5.0) g/dL Globulin (2.2-3.9) gm/dL Albumin/Globulin Ratio (1.0-2.1) 07/02/17 07/02/17 07/01/17 Range/Units 04:20 04:20 21:20 WBC 4.8 (4.8-10.8) K/uL RBC 3.51 L (4.40-5.90) Mil/uL Hgb 11.4 L (12.0-18.0) g/dL Hct 34.6 L (35.0-51.0) % MCV 98.6 H (80.0-94.0) fl MCH 32.5 H (27.0-31.0) pg MCHC 32.9 L (33.0-37.0) g/dL RDW 13.1 (11.5-14.5) % Plt Count 117 L (130-400) K/uL pCO2 (35-45) mm/Hg pO2 (80-100) mm/Hg HCO3 (21-28) mmol/L ABG pH (7.35-7.45) ABG Total CO2 (22-28) mmol/L ABG O2 Saturation (95-98) % ABG O2 Content (15-23) ML/dL ABG Base Excess (-2.0-3.0) mmol/L ABG Hemoglobin (11.7-17.4) g/dL ABG Carboxyhemoglobin (0.5-1.5) % POC ABG HHb (Measured) (0.0-5.0) % ABG Methemoglobin (0.0-3.0) % ABG O2 Capacity (16-24) mL/dL Jason Test A-a O2 Difference mm/Hg Hgb O2 Saturation (95.0-98.0) % Vent Mode Mechanical Rate FiO2 % Tidal Volume PEEP Sodium 141 (132-148) mmol/l Potassium 3.4 L (3.6-5.0) MMOL/L Chloride 105 (98-107) mmol/L Carbon Dioxide 28 (22-30) mmol/L Anion Gap 11 (10-20) BUN 9 (9-20) mg/dl Creatinine 0.7 L (0.8-1.5) mg/dl Est GFR ( Amer) > 60 Est GFR (Non-Af Amer) > 60 POC Glucose (mg/dL) 164 H (65-110) mg/dL Random Glucose 130 H (75-110) mg/dL Calcium 7.6 L (8.4-10.2) mg/dL Total Bilirubin 0.7 (0.2-1.3) mg/dl AST 49 (17-59) U/L ALT 34 (21-72) U/L Alkaline Phosphatase 95 (38-126) U/L Total Protein 6.7 (6.3-8.2) G/DL Albumin 3.3 L (3.5-5.0) g/dL Globulin 3.4 (2.2-3.9) gm/dL Albumin/Globulin Ratio 1.0 (1.0-2.1) 07/01/17 Range/Units 16:22 WBC (4.8-10.8) K/uL RBC (4.40-5.90) Mil/uL Hgb (12.0-18.0) g/dL Hct (35.0-51.0) % MCV (80.0-94.0) fl MCH (27.0-31.0) pg MCHC (33.0-37.0) g/dL RDW (11.5-14.5) % Plt Count (130-400) K/uL pCO2 (35-45) mm/Hg pO2 (80-100) mm/Hg HCO3 (21-28) mmol/L ABG pH (7.35-7.45) ABG Total CO2 (22-28) mmol/L ABG O2 Saturation (95-98) % ABG O2 Content (15-23) ML/dL ABG Base Excess (-2.0-3.0) mmol/L ABG Hemoglobin (11.7-17.4) g/dL ABG Carboxyhemoglobin (0.5-1.5) % POC ABG HHb (Measured) (0.0-5.0) % ABG Methemoglobin (0.0-3.0) % ABG O2 Capacity (16-24) mL/dL Jason Test A-a O2 Difference mm/Hg Hgb O2 Saturation (95.0-98.0) % Vent Mode Mechanical Rate FiO2 % Tidal Volume PEEP Sodium (132-148) mmol/l Potassium (3.6-5.0) MMOL/L Chloride (98-107) mmol/L Carbon Dioxide (22-30) mmol/L Anion Gap (10-20) BUN (9-20) mg/dl Creatinine (0.8-1.5) mg/dl Est GFR ( Amer) Est GFR (Non-Af Amer) POC Glucose (mg/dL) 158 H (65-110) mg/dL Random Glucose (75-110) mg/dL Calcium (8.4-10.2) mg/dL Total Bilirubin (0.2-1.3) mg/dl AST (17-59) U/L ALT (21-72) U/L Alkaline Phosphatase (38-126) U/L Total Protein (6.3-8.2) G/DL Albumin (3.5-5.0) g/dL Globulin (2.2-3.9) gm/dL Albumin/Globulin Ratio (1.0-2.1) Laboratory Results - last 24 hr 07/01/17 07/01/17 07/02/17 16:22 21:20 04:20 WBC 4.8 RBC 3.51 L Hgb 11.4 L Hct 34.6 L MCV 98.6 H MCH 32.5 H MCHC 32.9 L RDW 13.1 Plt Count 117 L pCO2 pO2 HCO3 ABG pH ABG Total CO2 ABG O2 Saturation ABG O2 Content ABG Base Excess ABG Hemoglobin ABG Carboxyhemoglobin POC ABG HHb (Measured) ABG Methemoglobin ABG O2 Capacity Jason Test A-a O2 Difference Hgb O2 Saturation Vent Mode Mechanical Rate FiO2 Tidal Volume PEEP Sodium Potassium Chloride Carbon Dioxide Anion Gap BUN Creatinine Est GFR ( Amer) Est GFR (Non-Af Amer) POC Glucose (mg/dL) 158 H 164 H Random Glucose Calcium Total Bilirubin AST ALT Alkaline Phosphatase Total Protein Albumin Globulin Albumin/Globulin Ratio 07/02/17 07/02/17 07/02/17 04:20 04:20 05:39 WBC RBC Hgb Hct MCV MCH MCHC RDW Plt Count pCO2 42 pO2 128 H HCO3 29.2 H ABG pH 7.46 H ABG Total CO2 31.2 H ABG O2 Saturation 97.9 ABG O2 Content 15.7 ABG Base Excess 5.5 H ABG Hemoglobin 11.4 L ABG Carboxyhemoglobin 0.7 POC ABG HHb (Measured) 2.1 ABG Methemoglobin 0.8 ABG O2 Capacity 16.0 Jason Test Yes A-a O2 Difference 105.0 Hgb O2 Saturation 96.4 Vent Mode A/c Mechanical Rate 14 FiO2 40.0 Tidal Volume 500 PEEP 5 Sodium 141 Potassium 3.4 L Chloride 105 Carbon Dioxide 28 Anion Gap 11 BUN 9 Creatinine 0.7 L Est GFR ( Amer) > 60 Est GFR (Non-Af Amer) > 60 POC Glucose (mg/dL) 105 Random Glucose 130 H Calcium 7.6 L Total Bilirubin 0.7 AST 49 ALT 34 Alkaline Phosphatase 95 Total Protein 6.7 Albumin 3.3 L Globulin 3.4 Albumin/Globulin Ratio 1.0 07/02/17 11:47 WBC RBC Hgb Hct MCV MCH MCHC RDW Plt Count pCO2 pO2 HCO3 ABG pH ABG Total CO2 ABG O2 Saturation ABG O2 Content ABG Base Excess ABG Hemoglobin ABG Carboxyhemoglobin POC ABG HHb (Measured) ABG Methemoglobin ABG O2 Capacity Jason Test A-a O2 Difference Hgb O2 Saturation Vent Mode Mechanical Rate FiO2 Tidal Volume PEEP Sodium Potassium Chloride Carbon Dioxide Anion Gap BUN Creatinine Est GFR ( Amer) Est GFR (Non-Af Amer) POC Glucose (mg/dL) 138 H Random Glucose Calcium Total Bilirubin AST ALT Alkaline Phosphatase Total Protein Albumin Globulin Albumin/Globulin Ratio Fingerstick Blood Sugar Results: 164 Review of Systems - Review of Systems Systems not reviewed;Unavailable: Intubated Critical Care Progress Note - Ventilator Checklist Head of Bed 30 Degrees: Yes Daily Sedation Vacation: Yes Daily Assessment of Readiness to Wean: Yes Daily Spontaneous Breathing Trial: Yes PUD Prophalyxis: Yes DVT Prophylaxis: Yes Oral Care with Chlorhexidine Gluconate {CHG}: Yes - Vent Settings MODE:: ASSIST CONTROL TIDAL VOLUME:: 500 RESP RATE:: 12 FIO2:: 40 PEEP:: 5 - Extremities/Vascular Does the Patient have a Central Venous Catheter?: No Does the Patient need a Central Venous Catheter?: No Does the Patient have a Archer Catheter?: Yes Does the Patient need a Archer Catheter?: Yes Catheter Insertion Criteria: Need for accurate measurement of output in critically ill patient - Restraints Justification for Restraints: High risk for self extubation, High risk for removing IV access - Prophylaxis GI Prophylaxis GI: PPI - Prophylaxis DVT Prophylaxis DVT: SCDs
[2017-07-02] MEDS ORDERED: Propofol 10 mg/ml 1,000 MG/100 ML VIAL IV SCH (12:45)
--- NOTE | 2017-07-03 02:53 | CP.PCM.PN ---
Subjective - Date & Time of Evaluation Date of Evaluation: 07/03/17 Time of Evaluation: 02:53 - Subjective Subjective: Called to evaluate patient who extubated himself. The patient is awake, shakes his head to answer questions. in bilateral wrist restraints The bulb of the ET tube was in his mouth, this was removed The mouth was suctioned BP 116/68mmHg with HR 82/min, RR 16/min BIPAP was placed at I/E 12/6 rate of 12 and FiO2 of 40% Since the patient cannot have wrist restraints with the BIPAP as per protocol, and was attempting to pull the BIPAP off decision was made to change to ventimask at 40%. The wrist restraints were reattached SpO2 now 97-98% with HR in 80s The patient will be observed for decompensation or tiring out at which time he will be reintubated. Diprivan on Hold Ativan for sedation. Critical Care time: 15minutes Zuhair Courtney> Objective - Vital Signs/Intake and Output Vital Signs (last 24 hours): Temp Pulse Resp BP Pulse Ox 99.1 F 82 11 L 116/68 96 07/03/17 00:00 07/03/17 02:00 07/03/17 02:00 07/03/17 02:00 07/03/17 02:00 Intake and Output: 07/02/17 07/03/17 18:59 06:59 Intake Total 1875 948 Output Total 1900 370 Balance -25 578 - Medications Medications: Current Medications Chlordiazepoxide (Librium) 100 mg PO Q8 JAY Last Admin: 07/03/17 01:32 Dose: 100 mg Enoxaparin Sodium (Lovenox) 40 mg SC DAILY JAY PRN Reason: Protocol Last Admin: 07/02/17 08:20 Dose: 40 mg Folic Acid (Folic Acid) 1 mg PO DAILY JAY Last Admin: 07/02/17 09:24 Dose: 1 mg Hydromorphone HCl (Dilaudid) 1 mg IVP Q4 PRN PRN Reason: Agitation Last Admin: 07/02/17 22:04 Dose: 1 mg Vancomycin HCl 1 gm/ Sodium (Chloride) 250 mls @ 166.667 mls/hr IVPB DAILY JAY PRN Reason: Protocol Last Admin: 07/02/17 08:21 Dose: 166.667 mls/hr Piperacillin Sod/Tazobactam (Sod 3.375 gm/ Sodium Chloride) 100 mls @ 100 mls/ hr IVPB Q6 JAY PRN Reason: Protocol Last Admin: 07/02/17 22:06 Dose: 100 mls/hr Midazolam HCl 50 mg/ Sodium (Chloride) 100 mls @ 4 mls/hr IV .Q24H JAY; 2 MG/HR PRN Reason: Protocol Last Admin: 07/02/17 08:21 Dose: 4 mls/hr Propofol (Diprivan) 1,000 mg in 100 mls @ 2.463 mls/hr IV .Q24H JAY; 5 MCG/KG/ MIN PRN Reason: Protocol Stop: 07/03/17 12:36 Last Titration: 07/02/17 23:07 Dose: 20 mcg/kg/min, 9.852 mls/hr Pantoprazole Sodium (Protonix Inj) 40 mg IVP DAILY JAY Last Admin: 07/02/17 08:20 Dose: 40 mg Thiamine HCl (Vitamin B1 Tab) 200 mg PO DAILY JAY - Labs Labs: 07/02/17 04:20 07/02/17 04:20 PT 13.1 Seconds (9.8-13.1) 06/27/17 03:58 INR 1.2 (0.9-1.2) 06/27/17 03:58 APTT 32.6 Seconds (25.6-37.1) 06/27/17 03:58
[2017-07-03] MEDS: Piperacillin/Tazobact 3.375 GM in Sodium Chloride 0.9% 100 ML IVPB SCH ×4 (03:38→21:27)
[2017-07-03 05:08] LABS: ABG ALLEN TEST YES; ARTERIAL BLOOD GAS HCO3 27.3 mmol/L (21-28); ARTERIAL BLOOD GAS MODE VENTIMASK; ARTERIAL BLOOD GAS O2 CONTENT 14.7 ML/dL (15-23); ARTERIAL BLOOD GAS PH 7.35 (7.35-7.45); ARTERIAL BLOOD GAS PO2 56 mm/Hg (80-100); ARTERIAL BLOOD HGB O2 SAT 89.5 % (95.0-98.0); CARBOXYHEMOGLOBIN 1.5 % (0.5-1.5); HHB 8.2 % (0.0-5.0); METHEMOGLOBIN 0.7 % (0.0-3.0)
[2017-07-03 05:53] LABS: HEMATOCRIT 36.7 % (35.0-51.0); MEAN CORPUSCULAR HEMOGLOBIN 33.1 pg (27.0-31.0); MEAN CORPUSCULAR HGB CONC 33.1 g/dL (33.0-37.0); RED CELL DISTRIBUTION WIDTH 13.6 % (11.5-14.5)
[2017-07-03 06:52] LABS: BLOOD UREA NITROGEN 13 mg/dl (9-20); CALCIUM 8.1 mg/dL (8.4-10.2); CARBON DIOXIDE 28 mmol/L (22-30); CHLORIDE 105 mmol/L (98-107); GFR AFRICAN-AMERICAN > 60; GLUCOSE,RANDOM 98 mg/dL (75-110); PHOSPHOROUS 4.5 mg/dl (2.5-4.5); POTASSIUM 4.2 MMOL/L (3.6-5.0); SODIUM 142 mmol/l (132-148)
[2017-07-03] MEDS: Enoxaparin 40 mg Syringe SC SCH (08:23)
--- NOTE | 2017-07-03 09:05 | CP.CCUPN ---
CCU Subjective - Physician Review Subjective (Free Text): Self extubated overnight, did not tolerate and agitated over ventimask, now on HFNC on 30 LPM at 50% with SPO2 99%. OGT was not removed with extubation and just now removed; it had been causing agitation as well. He is awake, alert and responds appropriately to simple questions. No overall distress, diaphoresis or excessive tachycardia. Other vitals and I/O's reviewed. No fever spikes last 24h. ROS: No other pertinent negs or positives on 10+ system review. PMSFH: All other Nursing and physician documentation reviewed to date; no new pertinent info noted relevant to current medical problems. CXR: ETT position OK above rex, RLL and RML infiltrates (my interp). IMPRESSION / MAJOR PROBLEMS NOW: 1. AMS: Acute ETOH intoxication vs. Occult Seizure Activity with prolonged post-ictal state. 2. ETOH Withdrawal Syndrome 3. Mild Azotemia, r/o Rhabdomyolysis 4. Acute Hypoxemic Resp failure 2 Bilateral pneumonia ( Aspiration type) PLAN: 1. Resumed Librium, and Ativan IV prn for breakthrough agitation. 2. Empiric Vanco/Zosyn 3. Remove Archer. 4. Continue IVF hydration, last CK= 2585, 2 days ago. 5. Swallow / Dysphagia screening, if passes, will start PO diet as tolerated. CCU Objective - Vital Signs / Intake & Output Vital Signs (Last 4 hours): Vital Signs Temp Pulse Resp BP Pulse Ox 07/03/17 08:00 98.9 F 92 H 20 127/79 100 07/03/17 07:54 20 07/03/17 06:58 72 14 128/89 100 07/03/17 06:00 57 L 12 83/51 L 100 07/03/17 05:52 12 Intake and Output (Last 8hrs): Intake & Output 07/02/17 07/03/17 07/03/17 22:59 06:59 14:59 Intake Total 876 992 Output Total 2070 400 Balance -1194 592 Intake: IV 56 182 Intake, Piggyback 100 100 Tube Feeding 420 560 Free Water Flush 300 150 Output: Gastric Amount 70 Stomach 70 Urine 2000 400 Urethral (Archer) 2000 400 - Physical Exam Head: Positive for: Atraumatic, Normocephalic Pupils: Positive for: PERRL Extroacular Muscles: Positive for: EOMI Mouth: Positive for: Dry Neck: Positive for: Normal Range of Motion. Negative for: JVD Respiratory/Chest: Positive for: Decreased Breath Sounds. Negative for: Accessory Muscle Use, Wheezes Cardiovascular: Positive for: Regular Rate and Rhythm, Tachycardic. Negative for: Murmurs, Rub Abdomen: Positive for: Normal Bowel Sounds. Negative for: Tenderness, Distention, Mass/Organomegaly Lower Extremity: Positive for: Edema, Erythema Neurological: Positive for: Motor Func Grossly Intact, Normal Sensory Function Skin: Positive for: Warm, Dry. Negative for: Rashes Psychiatric: Positive for: Other (sedated) - Medications Active Medications: Active Medications Generic Name Dose Route Start Last Admin Trade Name Freq PRN Reason Stop Dose Admin Chlordiazepoxide 100 mg 07/02/17 10:45 07/03/17 01:32 Librium PO 100 mg Q8 JAY Administration Enoxaparin Sodium 40 mg 06/27/17 09:00 07/03/17 08:23 Lovenox SC 40 mg DAILY JAY Administration Protocol Folic Acid 1 mg 06/27/17 09:00 07/03/17 08:36 Folic Acid PO 1 mg DAILY JAY Administration Vancomycin HCl 1 gm/ Sodium 250 mls @ 166.667 mls/hr 07/01/17 09:00 07/03/17 08:37 Chloride IVPB 166.667 mls/hr DAILY JAY Administration Protocol Piperacillin Sod/Tazobactam 100 mls @ 100 mls/hr 07/01/17 10:00 07/03/17 03: 38 Sod 3.375 gm/ Sodium Chloride IVPB 100 mls/hr Q6 JAY Administration Protocol Lorazepam 2 mg 07/03/17 09:03 Ativan IVP Q4 PRN Agitation Pantoprazole Sodium 40 mg 06/29/17 09:00 07/03/17 08:23 Protonix Inj IVP 40 mg DAILY JAY Administration Thiamine HCl 200 mg 07/02/17 18:08 07/03/17 08:36 Vitamin B1 Tab PO 200 mg DAILY JAY Administration - Patient Studies Lab Studies: Microbiology Studies 06/27/17 04:29 Gram Stain - Final Cerebral Spinal Fluid CSF Culture - Final No growth. 06/27/17 03:50 Blood Culture - Final Blood NO GROWTH AFTER 5 DAYS Gram Stain - Final TEST NOT PERFORMED 06/27/17 04:20 Blood Culture - Final Blood NO GROWTH AFTER 5 DAYS Gram Stain - Final TEST NOT PERFORMED Lab Studies 07/03/17 07/03/17 07/03/17 Range/Units 05:01 04:55 04:20 WBC (4.8-10.8) K/uL RBC (4.40-5.90) Mil/uL Hgb (12.0-18.0) g/dL Hct (35.0-51.0) % MCV (80.0-94.0) fl MCH (27.0-31.0) pg MCHC (33.0-37.0) g/dL RDW (11.5-14.5) % Plt Count (130-400) K/uL pCO2 54 H (35-45) mm/Hg pO2 56 L (80-100) mm/Hg HCO3 27.3 (21-28) mmol/L ABG pH 7.35 (7.35-7.45) ABG Total CO2 31.5 H (22-28) mmol/L ABG O2 Saturation 91.6 L (95-98) % ABG O2 Content 14.7 L (15-23) ML/dL ABG Base Excess 3.2 H (-2.0-3.0) mmol/L ABG Hemoglobin 11.7 (11.7-17.4) g/dL ABG Carboxyhemoglobin 1.5 (0.5-1.5) % POC ABG HHb (Measured) 8.2 H (0.0-5.0) % ABG Methemoglobin 0.7 (0.0-3.0) % ABG O2 Capacity 16.0 (16-24) mL/dL Jason Test Yes A-a O2 Difference 233.0 mm/Hg Hgb O2 Saturation 89.5 L (95.0-98.0) % Vent Mode Ventimask FiO2 50.0 % Sodium 142 (132-148) mmol/l Potassium 4.2 (3.6-5.0) MMOL/L Chloride 105 (98-107) mmol/L Carbon Dioxide 28 (22-30) mmol/L Anion Gap 13 (10-20) BUN 13 (9-20) mg/dl Creatinine 0.9 (0.8-1.5) mg/dl Est GFR ( Amer) > 60 Est GFR (Non-Af Amer) > 60 POC Glucose (mg/dL) 103 (65-110) mg/dL Random Glucose 98 (75-110) mg/dL Calcium 8.1 L (8.4-10.2) mg/dL Phosphorus 4.5 (2.5-4.5) mg/dl Magnesium 2.0 (1.6-2.3) MG/DL 07/03/17 07/03/17 07/02/17 Range/Units 04:20 02:13 22:03 WBC 5.0 (4.8-10.8) K/uL RBC 3.67 L (4.40-5.90) Mil/uL Hgb 12.2 (12.0-18.0) g/dL Hct 36.7 (35.0-51.0) % MCV 100.0 H (80.0-94.0) fl MCH 33.1 H (27.0-31.0) pg MCHC 33.1 (33.0-37.0) g/dL RDW 13.6 (11.5-14.5) % Plt Count 138 (130-400) K/uL pCO2 (35-45) mm/Hg pO2 (80-100) mm/Hg HCO3 (21-28) mmol/L ABG pH (7.35-7.45) ABG Total CO2 (22-28) mmol/L ABG O2 Saturation (95-98) % ABG O2 Content (15-23) ML/dL ABG Base Excess (-2.0-3.0) mmol/L ABG Hemoglobin (11.7-17.4) g/dL ABG Carboxyhemoglobin (0.5-1.5) % POC ABG HHb (Measured) (0.0-5.0) % ABG Methemoglobin (0.0-3.0) % ABG O2 Capacity (16-24) mL/dL Jason Test A-a O2 Difference mm/Hg Hgb O2 Saturation (95.0-98.0) % Vent Mode FiO2 % Sodium (132-148) mmol/l Potassium (3.6-5.0) MMOL/L Chloride (98-107) mmol/L Carbon Dioxide (22-30) mmol/L Anion Gap (10-20) BUN (9-20) mg/dl Creatinine (0.8-1.5) mg/dl Est GFR ( Amer) Est GFR (Non-Af Amer) POC Glucose (mg/dL) 144 H 77 (65-110) mg/dL Random Glucose (75-110) mg/dL Calcium (8.4-10.2) mg/dL Phosphorus (2.5-4.5) mg/dl Magnesium (1.6-2.3) MG/DL 07/02/17 07/02/17 Range/Units 16:35 11:47 WBC (4.8-10.8) K/uL RBC (4.40-5.90) Mil/uL Hgb (12.0-18.0) g/dL Hct (35.0-51.0) % MCV (80.0-94.0) fl MCH (27.0-31.0) pg MCHC (33.0-37.0) g/dL RDW (11.5-14.5) % Plt Count (130-400) K/uL pCO2 (35-45) mm/Hg pO2 (80-100) mm/Hg HCO3 (21-28) mmol/L ABG pH (7.35-7.45) ABG Total CO2 (22-28) mmol/L ABG O2 Saturation (95-98) % ABG O2 Content (15-23) ML/dL ABG Base Excess (-2.0-3.0) mmol/L ABG Hemoglobin (11.7-17.4) g/dL ABG Carboxyhemoglobin (0.5-1.5) % POC ABG HHb (Measured) (0.0-5.0) % ABG Methemoglobin (0.0-3.0) % ABG O2 Capacity (16-24) mL/dL Jason Test A-a O2 Difference mm/Hg Hgb O2 Saturation (95.0-98.0) % Vent Mode FiO2 % Sodium (132-148) mmol/l Potassium (3.6-5.0) MMOL/L Chloride (98-107) mmol/L Carbon Dioxide (22-30) mmol/L Anion Gap (10-20) BUN (9-20) mg/dl Creatinine (0.8-1.5) mg/dl Est GFR ( Amer) Est GFR (Non-Af Amer) POC Glucose (mg/dL) 127 H 138 H (65-110) mg/dL Random Glucose (75-110) mg/dL Calcium (8.4-10.2) mg/dL Phosphorus (2.5-4.5) mg/dl Magnesium (1.6-2.3) MG/DL Laboratory Results - last 24 hr 07/02/17 07/02/17 07/02/17 11:47 16:35 22:03 WBC RBC Hgb Hct MCV MCH MCHC RDW Plt Count pCO2 pO2 HCO3 ABG pH ABG Total CO2 ABG O2 Saturation ABG O2 Content ABG Base Excess ABG Hemoglobin ABG Carboxyhemoglobin POC ABG HHb (Measured) ABG Methemoglobin ABG O2 Capacity Jason Test A-a O2 Difference Hgb O2 Saturation Vent Mode FiO2 Sodium Potassium Chloride Carbon Dioxide Anion Gap BUN Creatinine Est GFR ( Amer) Est GFR (Non-Af Amer) POC Glucose (mg/dL) 138 H 127 H 77 Random Glucose Calcium Phosphorus Magnesium 07/03/17 07/03/17 07/03/17 02:13 04:20 04:20 WBC 5.0 RBC 3.67 L Hgb 12.2 Hct 36.7 MCV 100.0 H MCH 33.1 H MCHC 33.1 RDW 13.6 Plt Count 138 pCO2 pO2 HCO3 ABG pH ABG Total CO2 ABG O2 Saturation ABG O2 Content ABG Base Excess ABG Hemoglobin ABG Carboxyhemoglobin POC ABG HHb (Measured) ABG Methemoglobin ABG O2 Capacity Jason Test A-a O2 Difference Hgb O2 Saturation Vent Mode FiO2 Sodium 142 Potassium 4.2 Chloride 105 Carbon Dioxide 28 Anion Gap 13 BUN 13 Creatinine 0.9 Est GFR ( Amer) > 60 Est GFR (Non-Af Amer) > 60 POC Glucose (mg/dL) 144 H Random Glucose 98 Calcium 8.1 L Phosphorus 4.5 Magnesium 2.0 07/03/17 07/03/17 04:55 05:01 WBC RBC Hgb Hct MCV MCH MCHC RDW Plt Count pCO2 54 H pO2 56 L HCO3 27.3 ABG pH 7.35 ABG Total CO2 31.5 H ABG O2 Saturation 91.6 L ABG O2 Content 14.7 L ABG Base Excess 3.2 H ABG Hemoglobin 11.7 ABG Carboxyhemoglobin 1.5 POC ABG HHb (Measured) 8.2 H ABG Methemoglobin 0.7 ABG O2 Capacity 16.0 Jason Test Yes A-a O2 Difference 233.0 Hgb O2 Saturation 89.5 L Vent Mode Ventimask FiO2 50.0 Sodium Potassium Chloride Carbon Dioxide Anion Gap BUN Creatinine Est GFR ( Amer) Est GFR (Non-Af Amer) POC Glucose (mg/dL) 103 Random Glucose Calcium Phosphorus Magnesium Fingerstick Blood Sugar Results: 103 Review of Systems - Review of Systems Systems not reviewed;Unavailable: Altered Mental Status Critical Care Progress Note - Nutrition Nutrition: Nutrition Category Date Time Status Regular Diet [DIET] Diets 07/03/17 Breakfast Ordered
--- NOTE | 2017-07-03 10:44 | RAD ---
HISTORY: reevaluate ETT COMPARISON: Yesterday FINDINGS: LUNGS: Endotracheal tube has been removed. NG tube remains in position. There is some mild increase in right lower lung field volume loss with mild increased density appreciated. Small amount of right pleural fluid is not excluded. There is also some mild increase in probable atelectasis at the left lung base. PLEURA: Minor right effusion is not excluded. CARDIOVASCULAR: Vasculature is grossly unchanged. OSSEOUS STRUCTURES: No significant abnormalities. VISUALIZED UPPER ABDOMEN: Normal. OTHER FINDINGS: None. IMPRESSION: Status post removal of endotracheal tube with increased areas of atelectasis and volume loss at the lung bases.
--- NOTE | 2017-07-03 11:32 | CP.PCM.PN ---
Subjective - Date & Time of Evaluation Date of Evaluation: 07/03/17 Time of Evaluation: 10:00 - Subjective Subjective: Pt self extubated last night Now on High Flow 30 liters/ 50% FiO2 afebrile this am alert, oriented to person and place folows commands sl tremors denies pain Objective - Vital Signs/Intake and Output Vital Signs (last 24 hours): Temp Pulse Resp BP Pulse Ox 98.9 F 92 H 20 127/79 100 07/03/17 08:00 07/03/17 08:00 07/03/17 08:00 07/03/17 08:00 07/03/17 08:00 Intake and Output: 07/03/17 07/03/17 06:59 18:59 Intake Total 1338 Output Total 570 200 Balance 768 -200 - Medications Medications: Current Medications Chlordiazepoxide (Librium) 100 mg PO Q8 [facility] Last Admin: 07/03/17 09:47 Dose: 100 mg Enoxaparin Sodium (Lovenox) 40 mg SC DAILY JAY PRN Reason: Protocol Last Admin: 07/03/17 08:23 Dose: 40 mg Folic Acid (Folic Acid) 1 mg PO DAILY [facility] Last Admin: 07/03/17 08:36 Dose: 1 mg Vancomycin HCl 1 gm/ Sodium (Chloride) 250 mls @ 166.667 mls/hr IVPB DAILY JAY PRN Reason: Protocol Last Admin: 07/03/17 08:37 Dose: 166.667 mls/hr Piperacillin Sod/Tazobactam (Sod 3.375 gm/ Sodium Chloride) 100 mls @ 100 mls/ hr IVPB Q6 JAY PRN Reason: Protocol Last Admin: 07/03/17 09:42 Dose: 100 mls/hr Lorazepam (Ativan) 2 mg IVP Q4 PRN PRN Reason: Agitation Pantoprazole Sodium (Protonix Inj) 40 mg IVP DAILY [facility] Last Admin: 07/03/17 08:23 Dose: 40 mg Thiamine HCl (Vitamin B1 Tab) 200 mg PO DAILY [facility] Last Admin: 07/03/17 08:36 Dose: 200 mg - Labs Labs: 07/03/17 04:20 07/03/17 04:20 PT 13.1 Seconds (9.8-13.1) 06/27/17 03:58 INR 1.2 (0.9-1.2) 06/27/17 03:58 APTT 32.6 Seconds (25.6-37.1) 06/27/17 03:58 - Constitutional Appears: Unkempt, Older Than Stated Age, Chronically Ill On High Flow Oxygen 30 L/50% FiO2 - Head Exam Head Exam: NORMAL INSPECTION, NORMOCEPHALIC - Eye Exam Eye Exam: EOMI, Normal appearance, PERRL - ENT Exam ENT Exam: Mucous Membranes Dry, Normal External Ear Exam - Neck Exam Neck Exam: Full ROM. absent: Meningismus - Respiratory Exam Respiratory Exam: Rales, Rhonchi On High Flow - Cardiovascular Exam Cardiovascular Exam: REGULAR RHYTHM, +S1, +S2 - GI/Abdominal Exam GI & Abdominal Exam: Distended, Soft, Normal Bowel Sounds - Extremities Exam Extremities Exam: Normal Capillary Refill, Pedal Edema - Neurological Exam alert, oriented x 2 follows commands moves all extremities - Skin Skin Exam: Dry, Normal Color, Warm Additional comments: old lichenified rash, luiz on LE Assessment and Plan - Assessment and Plan (Free Text) Assessment: 62 y/o male was brought to the ED by EMS after he was [facility] outside the [facility] [place] [facility] confused and disoriented.Patient found to be altered, temp 102 . LP performed in ER and meningitis ruled out. Patient was found to have alcohol on him CXR cardiomegaly with possible RLL infiltrate CT head neg Patient was admitted to ICU for progressively worsening alcohol withdrawal, delirium tremens. 06/28 , he was Intubated for airway protection, self extubated on 07/02 1. Altered mental status likely secondary to Delirium Tremens was intubated for airway protection, self extubated LP performed in the ER ( bec of fever and AMS) CSF: Gram stain negative, cell Count : neg drug screen negative, ETOH neg no WBC, UA negative, lipase negative, procalcitonin normal 2. Delirium tremens EtOH less than 10 patient presented with disorientation, tachycardia, hypertension, hallucinations , hyperthermia was on Precedex drip ( changed to Versed and Propofol while intubated) Ativan prn on Thiamine IV, folate IV 3. RLL pneumonia Most likely aspiration on Zosyn and vanco IV 4. Rhabdomyolysis improving with hydration Continue IVF. 5. Azotemia/ dehydration Continue hydration 6. Elevated troponin, mild Troponin 0.12 No evidence of ischemia or infarct on EKG ECHO:normal wall motion and LV function 7.Transaminitis sec to Alcohol 8. Thrombocytopenia sec to ETOH resolved 9. Hypokalemia replace with KCl runs 10.DVT prophylaxis Lovenox
[2017-07-03] MEDS: Dextrose 5%/0.45% NS 1,000 ML IV SCH (17:27)
[2017-07-03] MEDS ORDERED: Chlorhexidine Gluconate 1 APPL/PKT TP ONE (21:36)
--- NOTE | 2017-07-04 00:26 | CP.PCM.PCO ---
Physician Communication Note - Physician Communication Note Physician Communication Note: Temperature 101.6F
[2017-07-04 02:52] LABS: RBC URINE 137 /hpf (0-3); URINE BILIRUBIN NEGATIVE (NEGATIVE); URINE BLOOD LARGE (NEGATIVE); URINE COLOR YELLOW (YELLOW); URINE GLUCOSE (UA) NEG (Normal); URINE KETONE NEGATIVE (NEGATIVE); URINE LEUKOCYTE ESTERASE NEG Leu/uL (Negative); URINE PROTEIN NEGATIVE (NEGATIVE); WBC URINE 4 /hpf (0-5)
[2017-07-04] MEDS: Piperacillin/Tazobact 3.375 GM in Sodium Chloride 0.9% 100 ML IVPB SCH ×4 (04:09→22:15)
[2017-07-04] MEDS: Dextrose 5%/0.45% NS 1,000 ML IV SCH ×3 (04:09→20:28)
[2017-07-04 05:44] LABS: HEMATOCRIT 34.8 % (35.0-51.0); MEAN CORPUSCULAR HEMOGLOBIN 33.1 pg (27.0-31.0); MEAN CORPUSCULAR HGB CONC 33.8 g/dL (33.0-37.0); RED CELL DISTRIBUTION WIDTH 13.2 % (11.5-14.5); WHITE BLOOD COUNT 4.6 K/uL (4.8-10.8)
[2017-07-04 05:57] LABS: BLOOD UREA NITROGEN 10 mg/dl (9-20); CALCIUM 8.1 mg/dL (8.4-10.2); CARBON DIOXIDE 30 mmol/L (22-30); CHLORIDE 104 mmol/L (98-107); GFR AFRICAN-AMERICAN > 60; GLUCOSE,RANDOM 106 mg/dL (75-110); POTASSIUM 3.6 MMOL/L (3.6-5.0); SODIUM 142 mmol/l (132-148)
--- NOTE | 2017-07-04 07:17 | CP.CCUPN ---
CCU Subjective - Physician Review Subjective (Free Text): Still intermittently agitated with increase in psychomotor activity, kicking his feet and swingaing arms. Fanny Ferreira called once yesterday. On Haldol prn fo breakthrough agitataion. Has refused PO Librium ( Ativan IVP given instead when he refuses to cooprate with PO administration. There is rambling speech when he is awake, and responds to simple questions with perseveration No overall distress, diaphoresis or excessive tachycardia. Other vitals and I/O's reviewed. No fever spikes last 24h. ROS: No other pertinent negs or positives on 10+ system review. PMSFH: All other Nursing and physician documentation reviewed to date; no new pertinent info noted relevant to current medical problems. CXR: persistent RLL and RML infiltrates (my interp). IMPRESSION / MAJOR PROBLEMS NOW: 1. AMS: Acute ETOH intoxication vs. Occult Seizure Activity with prolonged post-ictal state. 2. ETOH Withdrawal Syndrome 3. Mild Azotemia, r/o Rhabdomyolysis 4. Acute Hypoxemic Resp failure 2 Bilateral pneumonia ( Aspiration type) PLAN: 1. Resumed Librium, and Ativan IV prn for breakthrough agitation; and reserving Haldol for severe agitative episodes. 2. Empiric Vanco/Zosyn, slater-cultured overnight for T spike to 101.6F. No new leukocytosis. 3. Remove Archer. 4. Continue IVF hydration. 5. If cooperative: Swallow / Dysphagia eval, if passes, will start PO diet as tolerated. He is [id number] 2 days. 6. Try getting OOB; will help diminish Delirium episodes. CCU Objective - Vital Signs / Intake & Output Vital Signs (Last 4 hours): Vital Signs Temp Pulse Resp BP Pulse Ox 07/04/17 06:00 73 14 124/75 98 07/04/17 04:00 97.8 F 58 L 12 110/59 L 99 Intake and Output (Last 8hrs): Intake & Output 07/03/17 07/04/17 07/04/17 22:59 06:59 14:59 Intake Total 875 975 Output Total 2200 700 Balance -1325 275 Intake: IV 725 875 Intake, Piggyback 100 100 Oral 50 Output: Urine 2200 700 Urethral (Archer) 1400 700 Urine, Voided 800 Other: # Bowel Movements 1 1 - Physical Exam Head: Positive for: Atraumatic, Normocephalic Pupils: Positive for: PERRL Extroacular Muscles: Positive for: EOMI Mouth: Positive for: Dry Neck: Positive for: Normal Range of Motion. Negative for: JVD Respiratory/Chest: Positive for: Decreased Breath Sounds. Negative for: Accessory Muscle Use, Wheezes Cardiovascular: Positive for: Regular Rate and Rhythm, Tachycardic. Negative for: Murmurs, Rub Abdomen: Positive for: Normal Bowel Sounds. Negative for: Tenderness, Distention, Mass/Organomegaly Lower Extremity: Positive for: Edema, Erythema Neurological: Positive for: Motor Func Grossly Intact, Normal Sensory Function Skin: Positive for: Warm, Dry. Negative for: Rashes Psychiatric: Positive for: Other (sedated) - Medications Active Medications: Active Medications Generic Name Dose Route Start Last Admin Trade Name Freq PRN Reason Stop Dose Admin Acetaminophen 650 mg 07/04/17 00:22 07/04/17 00:34 Tylenol 650 Mg Supp [place] 650 mg Q4 PRN Administration Fever >100.4 F Chlordiazepoxide 100 mg 07/03/17 14:45 07/04/17 02:46 Librium PO Not Given Q6H JAY Enoxaparin Sodium 40 mg 06/27/17 09:00 07/03/17 08:23 Lovenox SC 40 mg DAILY JAY Administration Protocol Folic Acid 1 mg 06/27/17 09:00 07/03/17 08:36 Folic Acid PO 1 mg DAILY JAY Administration Haloperidol Lactate 5 mg 07/03/17 14:31 07/03/17 20:27 Haldol IVP 5 mg Q6 PRN Administration Agitation Vancomycin HCl 1 gm/ Sodium 250 mls @ 166.667 mls/hr 07/01/17 09:00 07/03/17 08:37 Chloride IVPB 166.667 mls/hr DAILY JAY Administration Protocol Piperacillin Sod/Tazobactam 100 mls @ 100 mls/hr 07/01/17 10:00 07/04/17 04: 09 Sod 3.375 gm/ Sodium Chloride IVPB 100 mls/hr Q6 JAY Administration Protocol Dextrose/Sodium Chloride 1,000 mls @ 125 mls/hr 07/03/17 17:15 07/04/17 04:09 Dextrose 5%/0.45% Ns 1000 Ml IV 07/04/17 17:12 125 mls/hr .Q8H JAY Administration Lorazepam 2 mg 07/03/17 17:13 07/04/17 05:41 Ativan IVP 2 mg Q6H PRN Administration Agitation Pantoprazole Sodium 40 mg 06/29/17 09:00 07/03/17 08:23 Protonix Inj IVP 40 mg DAILY JAY Administration Thiamine HCl 200 mg 07/02/17 18:08 07/03/17 08:36 Vitamin B1 Tab PO 200 mg DAILY JAY Administration - Patient Studies Lab Studies: Lab Studies 07/04/17 07/04/17 07/04/17 Range/Units 04:39 04:20 04:20 WBC 4.6 L (4.8-10.8) K/uL RBC 3.55 L (4.40-5.90) Mil/uL Hgb 11.7 L (12.0-18.0) g/dL Hct 34.8 L (35.0-51.0) % MCV 98.0 H D (80.0-94.0) fl MCH 33.1 H (27.0-31.0) pg MCHC 33.8 (33.0-37.0) g/dL RDW 13.2 (11.5-14.5) % Plt Count 157 (130-400) K/uL Sodium 142 (132-148) mmol/l Potassium 3.6 (3.6-5.0) MMOL/L Chloride 104 (98-107) mmol/L Carbon Dioxide 30 (22-30) mmol/L Anion Gap 12 (10-20) BUN 10 (9-20) mg/dl Creatinine 0.8 (0.8-1.5) mg/dl Est GFR ( Amer) > 60 Est GFR (Non-Af Amer) > 60 POC Glucose (mg/dL) 99 (65-110) mg/dL Random Glucose 106 (75-110) mg/dL Calcium 8.1 L (8.4-10.2) mg/dL Urine Color (YELLOW) Urine Clarity (Clear) Urine pH (5.0-8.0) Ur Specific [place] (1.003-1.030) Urine Protein (NEGATIVE) mg/dL Urine Glucose (UA) (Normal) mg/dL Urine Ketones (NEGATIVE) mg/dL Urine Blood (NEGATIVE) Urine Nitrate (NEGATIVE) Urine Bilirubin (NEGATIVE) Urine Urobilinogen (0.2-1.0) mg/dL Ur Leukocyte Esterase (Negative) [place]/uL Urine RBC (Auto) (0-3) /hpf Urine Microscopic WBC (0-5) /hpf 07/04/17 07/03/17 07/03/17 Range/Units 02:14 21:08 16:54 WBC (4.8-10.8) K/uL RBC (4.40-5.90) Mil/uL Hgb (12.0-18.0) g/dL Hct (35.0-51.0) % MCV (80.0-94.0) fl MCH (27.0-31.0) pg MCHC (33.0-37.0) g/dL RDW (11.5-14.5) % Plt Count (130-400) K/uL Sodium (132-148) mmol/l Potassium (3.6-5.0) MMOL/L Chloride (98-107) mmol/L Carbon Dioxide (22-30) mmol/L Anion Gap (10-20) BUN (9-20) mg/dl Creatinine (0.8-1.5) mg/dl Est GFR ( Amer) Est GFR (Non-Af Amer) POC Glucose (mg/dL) 133 H 93 (65-110) mg/dL Random Glucose (75-110) mg/dL Calcium (8.4-10.2) mg/dL Urine Color Yellow (YELLOW) Urine Clarity Slighty-cloudy (Clear) Urine pH 7.0 (5.0-8.0) Ur Specific [place] 1.013 (1.003-1.030) Urine Protein Negative (NEGATIVE) mg/dL Urine Glucose (UA) Neg (Normal) mg/dL Urine Ketones Negative (NEGATIVE) mg/dL Urine Blood Large (NEGATIVE) Urine Nitrate Negative (NEGATIVE) Urine Bilirubin Negative (NEGATIVE) Urine Urobilinogen 2.0 (0.2-1.0) mg/dL Ur Leukocyte Esterase Neg (Negative) [place]/uL Urine RBC (Auto) 137 H (0-3) /hpf Urine Microscopic WBC 4 (0-5) /hpf 07/03/17 Range/Units 11:30 WBC (4.8-10.8) K/uL RBC (4.40-5.90) Mil/uL Hgb (12.0-18.0) g/dL Hct (35.0-51.0) % MCV (80.0-94.0) fl MCH (27.0-31.0) pg MCHC (33.0-37.0) g/dL RDW (11.5-14.5) % Plt Count (130-400) K/uL Sodium (132-148) mmol/l Potassium (3.6-5.0) MMOL/L Chloride (98-107) mmol/L Carbon Dioxide (22-30) mmol/L Anion Gap (10-20) BUN (9-20) mg/dl Creatinine (0.8-1.5) mg/dl Est GFR ( Amer) Est GFR (Non-Af Amer) POC Glucose (mg/dL) 103 (65-110) mg/dL Random Glucose (75-110) mg/dL Calcium (8.4-10.2) mg/dL Urine Color (YELLOW) Urine Clarity (Clear) Urine pH (5.0-8.0) Ur Specific [place] (1.003-1.030) Urine Protein (NEGATIVE) mg/dL Urine Glucose (UA) (Normal) mg/dL Urine Ketones (NEGATIVE) mg/dL Urine Blood (NEGATIVE) Urine Nitrate (NEGATIVE) Urine Bilirubin (NEGATIVE) Urine Urobilinogen (0.2-1.0) mg/dL Ur Leukocyte Esterase (Negative) [place]/uL Urine RBC (Auto) (0-3) /hpf Urine Microscopic WBC (0-5) /hpf Laboratory Results - last 24 hr 07/03/17 07/03/17 07/03/17 11:30 16:54 21:08 WBC RBC Hgb Hct MCV MCH MCHC RDW Plt Count Sodium Potassium Chloride Carbon Dioxide Anion Gap BUN Creatinine Est GFR ( Amer) Est GFR (Non-Af Amer) POC Glucose (mg/dL) 103 93 133 H Random Glucose Calcium Urine Color Urine Clarity Urine pH Ur Specific [place] Urine Protein Urine Glucose (UA) Urine Ketones Urine Blood Urine Nitrate Urine Bilirubin Urine Urobilinogen Ur Leukocyte Esterase Urine RBC (Auto) Urine Microscopic WBC 07/04/17 07/04/17 07/04/17 02:14 04:20 04:20 WBC 4.6 L RBC 3.55 L Hgb 11.7 L Hct 34.8 L MCV 98.0 H D MCH 33.1 H MCHC 33.8 RDW 13.2 Plt Count 157 Sodium 142 Potassium 3.6 Chloride 104 Carbon Dioxide 30 Anion Gap 12 BUN 10 Creatinine 0.8 Est GFR ( Amer) > 60 Est GFR (Non-Af Amer) > 60 POC Glucose (mg/dL) Random Glucose 106 Calcium 8.1 L Urine Color Yellow Urine Clarity Slighty-cloudy Urine pH 7.0 Ur Specific [place] 1.013 Urine Protein Negative Urine Glucose (UA) Neg Urine Ketones Negative Urine Blood Large Urine Nitrate Negative Urine Bilirubin Negative Urine Urobilinogen 2.0 Ur Leukocyte Esterase Neg Urine RBC (Auto) 137 H Urine Microscopic WBC 4 07/04/17 04:39 WBC RBC Hgb Hct MCV MCH MCHC RDW Plt Count Sodium Potassium Chloride Carbon Dioxide Anion Gap BUN Creatinine Est GFR ( Amer) Est GFR (Non-Af Amer) POC Glucose (mg/dL) 99 Random Glucose Calcium Urine Color Urine Clarity Urine pH Ur Specific [place] Urine Protein Urine Glucose (UA) Urine Ketones Urine Blood Urine Nitrate Urine Bilirubin Urine Urobilinogen Ur Leukocyte Esterase Urine RBC (Auto) Urine Microscopic WBC Radiology Interpretations (Free Text): see above Fingerstick Blood Sugar Results: 99 Review of Systems - Review of Systems Systems not reviewed;Unavailable: Altered Mental Status Critical Care Progress Note - Nutrition Nutrition: Nutrition Category Date Time Status Regular Diet [DIET] Diets 07/03/17 Breakfast Active
[2017-07-04] MEDS: Enoxaparin 40 mg Syringe SC SCH (08:57)
--- NOTE | 2017-07-04 08:57 | RAD ---
HISTORY: Persistent fever COMPARISON: Chest radiograph dated 07/03/2017. FINDINGS: LUNGS: Pulmonary vascular congestion. PLEURA: No significant pleural effusion identified, no pneumothorax apparent. CARDIOVASCULAR: Stably enlarged. OSSEOUS STRUCTURES: No significant abnormalities. VISUALIZED UPPER ABDOMEN: Normal. OTHER FINDINGS: Interval removal of the enteric tube. IMPRESSION: Inter removal of enteric tube. Stable pulmonary vascular congestion without focal consolidation or definite pleural effusion.
--- NOTE | 2017-07-04 10:41 | CP.PCM.PN ---
Subjective - Date & Time of Evaluation Date of Evaluation: 07/04/17 Time of Evaluation: 09:00 - Subjective Subjective: Pt has episodes of confusion , agitation Sedated Febrile Saturating fine on 3 liters per NC He opens his eyes with verbal stimuli and able to say his name too lethargic to take any PO meds Objective - Vital Signs/Intake and Output Vital Signs (last 24 hours): Temp Pulse Resp BP Pulse Ox 101.2 F H 98 H 18 134/77 98 07/04/17 08:00 07/04/17 08:00 07/04/17 08:00 07/04/17 08:00 07/04/17 08:00 Intake and Output: 07/04/17 07/04/17 06:59 18:59 Intake Total 1500 Output Total 1500 Balance 0 - Medications Medications: Current Medications Acetaminophen (Tylenol 650 Mg Supp) 650 mg NE Q4 PRN PRN Reason: Fever >100.4 F Last Admin: 07/04/17 08:59 Dose: 650 mg Chlordiazepoxide (Librium) 100 mg PO Q6H [facility] Last Admin: 07/04/17 09:29 Dose: Not Given Enoxaparin Sodium (Lovenox) 40 mg SC DAILY JAY PRN Reason: Protocol Last Admin: 07/04/17 08:57 Dose: 40 mg Folic Acid (Folic Acid) 1 mg PO DAILY [facility] Last Admin: 07/04/17 09:27 Dose: Not Given Haloperidol Lactate (Haldol) 5 mg IVP Q6 PRN PRN Reason: Agitation Last Admin: 07/03/17 20:27 Dose: 5 mg Vancomycin HCl 1 gm/ Sodium (Chloride) 250 mls @ 166.667 mls/hr IVPB DAILY JAY PRN Reason: Protocol Last Admin: 07/04/17 08:59 Dose: 166.667 mls/hr Piperacillin Sod/Tazobactam (Sod 3.375 gm/ Sodium Chloride) 100 mls @ 100 mls/ hr IVPB Q6 JAY PRN Reason: Protocol Last Admin: 07/04/17 09:22 Dose: 100 mls/hr Dextrose/Sodium Chloride (Dextrose 5%/0.45% Ns 1000 Ml) 1,000 mls @ 125 mls/hr IV .Q8H [facility] Stop: 07/04/17 17:12 Last Admin: 07/04/17 04:09 Dose: 125 mls/hr Lorazepam (Ativan) 2 mg IVP Q6H PRN PRN Reason: Agitation Last Admin: 07/04/17 05:41 Dose: 2 mg Pantoprazole Sodium (Protonix Inj) 40 mg IVP DAILY [facility] Last Admin: 07/04/17 08:57 Dose: 40 mg Thiamine HCl (Vitamin B1 Tab) 200 mg PO DAILY JAY Last Admin: 07/04/17 09:26 Dose: Not Given - Labs Labs: 07/04/17 04:20 07/04/17 04:20 PT 13.1 Seconds (9.8-13.1) 06/27/17 03:58 INR 1.2 (0.9-1.2) 06/27/17 03:58 APTT 32.6 Seconds (25.6-37.1) 06/27/17 03:58 - Constitutional Appears: Unkempt, Older Than Stated Age, Chronically Ill - Head Exam Head Exam: NORMAL INSPECTION, NORMOCEPHALIC - Eye Exam Eye Exam: EOMI, Normal appearance, PERRL - ENT Exam ENT Exam: Mucous Membranes Dry, Normal External Ear Exam - Neck Exam Neck Exam: Full ROM. absent: Meningismus - Respiratory Exam Respiratory Exam: Rales, Rhonchi - Cardiovascular Exam Cardiovascular Exam: REGULAR RHYTHM, +S1, +S2 - GI/Abdominal Exam GI & Abdominal Exam: Distended, Soft, Normal Bowel Sounds - Extremities Exam Extremities Exam: Normal Capillary Refill, Pedal Edema - Neurological Exam Sedated, oriented to person opens eyes to verbal stimuli moves all extremities - Skin Skin Exam: Dry, Normal Color, Warm Additional comments: old lichenified rash, luiz on LE Assessment and Plan - Assessment and Plan (Free Text) Assessment: 62 y/o male was brought to the ED by EMS after he was found outside the [facility] confused and disoriented. Patient found to be altered, temp 102. LP performed in ER and meningitis ruled out. Patient was found to have alcohol on him CXR cardiomegaly with possible RLL infiltrate CT head neg Patient was admitted to ICU for progressively worsening alcohol withdrawal, delirium tremens. 06/28 , he was Intubated for airway protection, self extubated on 07/02 1. Altered mental status likely secondary to Delirium Tremens was intubated for airway protection, self extubated LP performed in the ER ( bec of fever and AMS) CSF: Gram stain negative, cell Count : neg drug screen negative, ETOH neg no WBC, UA negative, lipase negative, procalcitonin normal 2. Delirium tremens EtOH less than 10 patient presented with disorientation, tachycardia, hypertension, hallucinations , hyperthermia was on Precedex drip ( changed to Versed and Propofol while intubated) Ativan prn on Thiamine IV, folate IV 3. RLL pneumonia Most likely aspiration on Zosyn and vanco IV 4. Rhabdomyolysis improved with hydration Continue IVF. 5. Azotemia/ dehydration Continue hydration 6. Elevated troponin, mild Troponin 0.12 No evidence of ischemia or infarct on EKG ECHO:normal wall motion and LV function 7.Transaminitis sec to Alcohol 8. Thrombocytopenia sec to ETOH resolved 9. Hypokalemia replaced with KCl runs 10.DVT prophylaxis Lovenox
[2017-07-04] MEDS: Thiamine 100 mg/ml Inj IM SCH (11:22)
[2017-07-05] MEDS: Piperacillin/Tazobact 3.375 GM in Sodium Chloride 0.9% 100 ML IVPB SCH ×4 (03:11→21:25)
[2017-07-05 06:41] LABS: HEMATOCRIT 34.2 % (35.0-51.0); MEAN CELL VOLUME 96.7 fl (80.0-94.0); MEAN CORPUSCULAR HEMOGLOBIN 32.9 pg (27.0-31.0); RED CELL DISTRIBUTION WIDTH 13.1 % (11.5-14.5); WHITE BLOOD COUNT 5.1 K/uL (4.8-10.8)
[2017-07-05 06:48] LABS: BLOOD UREA NITROGEN 8 mg/dl (9-20); CALCIUM 8.4 mg/dL (8.4-10.2); CARBON DIOXIDE 31 mmol/L (22-30); CHLORIDE 102 mmol/L (98-107); GFR AFRICAN-AMERICAN > 60; GLUCOSE,RANDOM 131 mg/dL (75-110); POTASSIUM 3.4 MMOL/L (3.6-5.0); SODIUM 139 mmol/l (132-148)
[2017-07-05] MEDS: Dextrose 5%/0.45% NS 1,000 ML IV SCH (09:05)
[2017-07-05] MEDS: Enoxaparin 40 mg Syringe SC SCH (09:06)
[2017-07-05] MEDS: Thiamine 100 mg/ml Inj IM SCH (09:07)
--- NOTE | 2017-07-05 12:12 | CP.PCM.PN ---
Subjective - Date & Time of Evaluation Date of Evaluation: 07/05/17 Time of Evaluation: 11:30 - Subjective Subjective: Patient seen and examined bedside. Lethargic , obtunded, not following any commands.On Soft restrains for safety.Received Ativan 1 mg IV 8 hours prior to this exam Not taking any PO meds and not eating due to lethargy BP 123/75 HR 66 Saturating 100 % on 3 L O2 via NC , afebriel RR 23 -29 With weak coughing spells , dry oral mucosa, unable to expectorate WBC 5 K HGb 11.6 Plt 175 K Objective - Vital Signs/Intake and Output Vital Signs (last 24 hours): Temp Pulse Resp BP Pulse Ox 98.9 F 66 11 L 123/75 100 07/05/17 08:00 07/05/17 10:00 07/05/17 10:00 07/05/17 10:00 07/05/17 10:00 Intake and Output: 07/05/17 07/05/17 06:59 18:59 Intake Total 1500 725 Output Total 700 900 Balance 800 -175 - Medications Medications: Current Medications Acetaminophen (Tylenol 650 Mg Supp) 650 mg VT Q4 PRN PRN Reason: Fever >100.4 F Last Admin: 07/04/17 08:59 Dose: 650 mg Albuterol/Ipratropium (Duoneb 3 Mg/0.5 Mg (3 Ml) Ud) 3 ml INH RQID JAY Chlordiazepoxide (Librium) 50 mg PO Q8 JAY Enoxaparin Sodium (Lovenox) 40 mg SC DAILY JAY PRN Reason: Protocol Last Admin: 07/05/17 09:06 Dose: 40 mg Folic Acid (Folic Acid) 1 mg PO DAILY JAY Last Admin: 07/05/17 09:06 Dose: Not Given Furosemide (Lasix) 20 mg IVP ONCE ONE Stop: 07/05/17 12:05 Haloperidol Lactate (Haldol) 5 mg IVP Q6 PRN PRN Reason: Agitation Last Admin: 07/03/17 20:27 Dose: 5 mg Vancomycin HCl 1 gm/ Sodium (Chloride) 250 mls @ 166.667 mls/hr IVPB DAILY JAY PRN Reason: Protocol Last Admin: 07/05/17 09:08 Dose: 166.667 mls/hr Piperacillin Sod/Tazobactam (Sod 3.375 gm/ Sodium Chloride) 100 mls @ 100 mls/ hr IVPB Q6 JAY PRN Reason: Protocol Last Admin: 07/05/17 09:11 Dose: 100 mls/hr Dextrose/Sodium Chloride (Dextrose 5%/0.45% Ns 1000 Ml) 1,000 mls @ 125 mls/hr IV .Q8H JAY Stop: 07/05/17 20:09 Last Admin: 07/05/17 09:05 Dose: 125 mls/hr Potassium Chloride (Potassium Cl 10meq/50ml Sterile Water) 50 mls @ 50 mls/hr IVPB Q1 JAY Stop: 07/05/17 14:59 Lactulose (Generlac) 200 gm VT ONCE ONE Stop: 07/05/17 11:53 Lorazepam (Ativan) 2 mg IVP Q6H PRN PRN Reason: Agitation Last Admin: 07/05/17 03:06 Dose: 2 mg Pantoprazole Sodium (Protonix Inj) 40 mg IVP DAILY [facility] Last Admin: 07/05/17 09:06 Dose: 40 mg Thiamine HCl (Vitamin B1 Tab) 200 mg PO DAILY [facility] Last Admin: 07/04/17 09:26 Dose: Not Given Thiamine HCl (Vitamin B1 Inj) 100 mg IM DAILY [facility] Last Admin: 07/05/17 09:07 Dose: 100 mg - Labs Labs: 07/05/17 05:30 07/05/17 05:30 PT 13.1 Seconds (9.8-13.1) 06/27/17 03:58 INR 1.2 (0.9-1.2) 06/27/17 03:58 APTT 32.6 Seconds (25.6-37.1) 06/27/17 03:58 - Constitutional Appears: Non-toxic, No Acute Distress, Other (obtunded , not following any commands ) - Head Exam Head Exam: NORMOCEPHALIC - Eye Exam Eye Exam: PERRL - ENT Exam ENT Exam: Mucous Membranes Dry - Neck Exam Neck Exam: Normal Inspection - Respiratory Exam Respiratory Exam: Decreased Breath Sounds (bibasilar ), Clear to Ausculation Bilateral. absent: Accessory Muscle Use, Prolonged Expiratory Phase, Rhonchi, Wheezes, Respiratory Distress - Cardiovascular Exam Cardiovascular Exam: REGULAR RHYTHM, RRR, +S1, +S2. absent: JVD - GI/Abdominal Exam GI & Abdominal Exam: Soft, Normal Bowel Sounds. absent: Distended, Guarding, Tenderness, Rebound - Rectal Exam Rectal Exam: Deferred - Extremities Exam Extremities Exam: absent: Joint Swelling, Pedal Edema - Neurological Exam Additional comments: obtunded , not following any commands - Skin Skin Exam: Dry, Warm Assessment and Plan - Assessment and Plan (Free Text) Assessment: 62 y/o male was brought to the ED by EMS after he was found outside the homeless group home confused and disoriented. Patient found to be altered, temp 102. LP performed in ER and meningitis ruled out. Patient was found to have alcohol on him CXR showed cardiomegaly with possible RLL infiltrate CT head neg Patient was admitted to ICU for progressively worsening alcohol withdrawal, delirium tremens and possible pneumonia 06/28 , he was Intubated for airway protection and self extubated on 07/02. At present very lethargic , obtunded , not following any commands 1. Altered mental status likely secondary to Delirium Tremens/ metabolic encephalopathy ? was intubated for airway protection, self extubated LP performed in the ER ruled out meningitis drug screen negative, ETOH neg no WBC, UA negative, lipase negative, procalcitonin normal Patient is very obtunded and lethargic , not following any commands Able to maintain his airway for now with O2 sat 100 % on 3 L O2 via NC but with weak cough reflex unable to expectorate Will order ABG, CXR stat , DUoneb RTC Keep HOB elevated > 45 degree , aspiration precautions Continue Vanco and Zosyn IV Will check ammonia levels, TSH, Vitamin V12 , Vitamin D Stop all sedation meds , Ativan , Haldol , librium Will give lactulose VT x 1 dose continue THiamine 2. Delirium tremens patient presented with disorientation, tachycardia, hypertension, hallucinations , hyperthermia was on Precedex drip ( changed to Versed and Propofol while intubated) at present very sedated and obtunded Hold all sedation Continue Thiamine 3. RLL pneumonia Most likely aspiration on Zosyn and vanco IV 4. Rhabdomyolysis improved with hydration Continue IVF. 5. Azotemia/ dehydration Continue hydration 6. Elevated troponin, mild Troponin 0.12 No evidence of ischemia or infarct on EKG ECHO:normal wall motion and LV function 7.Transaminitis sec to Alcohol 8. Thrombocytopenia sec to ETOH resolved 9. Hypokalemia replaced with KCl runs 10.DVT prophylaxis Lovenox
[2017-07-05] MEDS ORDERED: Lactulose 10 gm/15 ml (Rectal Use) PR ONE (12:15)
[2017-07-05 12:21] LABS: ABG ALLEN TEST YES; ARTERIAL BLOOD GAS O2 CAPACITY 16.5 mL/dL (16-24); ARTERIAL BLOOD GAS O2 CONTENT 16.2 ML/dL (15-23); ARTERIAL BLOOD GAS PH 7.45 (7.35-7.45); ARTERIAL BLOOD GAS PO2 96 mm/Hg (80-100); ARTERIAL BLOOD HGB O2 SAT 95.5 % (95.0-98.0); CARBOXYHEMOGLOBIN 1.9 % (0.5-1.5); HHB 1.8 % (0.0-5.0); METHEMOGLOBIN 0.8 % (0.0-3.0)
[2017-07-05] MEDS: Potassium CL 10 MEQ/50 ML 50 ML IVPB SCH ×2 (12:45→14:30)
[2017-07-05] MEDS: Albuterol-Ipratrop 3 mg / 0.5 (3 ml) UD INH SCH ×3 (12:49→19:23)
[2017-07-05 13:10] LABS: THYROID STIMULATING HORMONE 1.48 mIU/ML (0.46-4.68)
--- NOTE | 2017-07-05 14:10 | CT ---
PROCEDURE: CT HEAD WITHOUT CONTRAST. HISTORY: AMS / lethargy COMPARISON: 06/27/2017 TECHNIQUE: Axial computed tomography images were obtained through the head/brain without intravenous contrast. Radiation dose: Total exam DLP = 1166 mGy-cm. This CT exam was performed using one or more of the following dose reduction techniques: Automated exposure control, adjustment of the mA and/or kV according to patient size, and/or use of iterative reconstruction technique. FINDINGS: HEMORRHAGE: No intracranial hemorrhage. BRAIN: No mass effect or edema. No atrophy or chronic microvascular ischemic changes. Stable calcification in the left parietal lobe. VENTRICLES: Unremarkable. No hydrocephalus. CALVARIUM: Unremarkable. PARANASAL SINUSES: Unremarkable as visualized. No significant inflammatory changes. MASTOID AIR CELLS: Unremarkable as visualized. No inflammatory changes. OTHER FINDINGS: None. IMPRESSION: Normal CT of the Head.
[2017-07-06] MEDS: Piperacillin/Tazobact 3.375 GM in Sodium Chloride 0.9% 100 ML IVPB SCH ×4 (04:32→22:00)
[2017-07-06] MEDS: Albuterol-Ipratrop 3 mg / 0.5 (3 ml) UD INH SCH ×4 (07:26→19:41)
[2017-07-06 08:06] LABS: HEMATOCRIT 35.5 % (35.0-51.0); MEAN CELL VOLUME 95.9 fl (80.0-94.0); MEAN CORPUSCULAR HGB CONC 34.4 g/dL (33.0-37.0); RED CELL DISTRIBUTION WIDTH 13.1 % (11.5-14.5); WHITE BLOOD COUNT 6.2 K/uL (4.8-10.8)
[2017-07-06 08:24] LABS: ALKALINE PHOSPHATASE 98 U/L (38-126); ALT/SGPT 40 U/L (21-72); AST/SGOT 111 U/L (17-59); BILIRUBIN,TOTAL 1.1 mg/dl (0.2-1.3); BLOOD UREA NITROGEN 11 mg/dl (9-20); CARBON DIOXIDE 32 mmol/L (22-30); CHLORIDE 105 mmol/L (98-107); GFR AFRICAN-AMERICAN > 60; GLUCOSE,RANDOM 127 mg/dL (75-110); POTASSIUM 3.3 MMOL/L (3.6-5.0); SODIUM 146 mmol/l (132-148); TOTAL PROTEIN 8.2 G/DL (6.3-8.2)
--- NOTE | 2017-07-06 09:20 | RAD ---
PROCEDURE: CHEST RADIOGRAPH, 1 VIEW HISTORY: r/o pneumonia COMPARISON: None available. FINDINGS: LUNGS: Bilateral interstitial infiltrates. PLEURA: No pneumothorax or pleural fluid seen. CARDIOVASCULAR: Normal. OSSEOUS STRUCTURES: No significant abnormalities. VISUALIZED UPPER ABDOMEN: Normal. OTHER FINDINGS: None. IMPRESSION: Bilateral interstitial infiltrates.
--- NOTE | 2017-07-06 09:38 | CP.PCM.PN ---
Subjective - Date & Time of Evaluation Date of Evaluation: 07/06/17 Time of Evaluation: 09:30 - Subjective Subjective: Patient was seen and evaluated bedside. Very sedated and lethargic . As per staff was agitated overnight and Ativan was given for sedation. Hemodynamically stable, afebrile. BP 128/82 HR 72 RR 18 saturating 97 5 on 2 L O2 via NC afebrile WBC 6 Hgb 12 plt 223 K BUN/ Cr 11/0.9 K 3.3 Objective - Vital Signs/Intake and Output Vital Signs (last 24 hours): Temp Pulse Resp BP Pulse Ox 98.0 F 72 20 128/82 97 07/06/17 08:00 07/06/17 08:00 07/06/17 08:00 07/06/17 08:00 07/06/17 08:00 Intake and Output: 07/06/17 07/06/17 06:59 18:59 Intake Total 475 Output Total 800 Balance -325 - Medications Medications: Current Medications Acetaminophen (Tylenol 650 Mg Supp) 650 mg [place] Q4 PRN PRN Reason: Fever >100.4 F Last Admin: 07/04/17 08:59 Dose: 650 mg Albuterol/Ipratropium (Duoneb 3 Mg/0.5 Mg (3 Ml) Ud) 3 ml INH RQID [facility] Last Admin: 07/06/17 07:26 Dose: 3 ml Chlordiazepoxide (Librium) 50 mg PO Q8 [facility] Enoxaparin Sodium (Lovenox) 40 mg SC DAILY [facility] PRN Reason: Protocol Last Admin: 07/05/17 09:06 Dose: 40 mg Folic Acid (Folic Acid) 1 mg PO DAILY [facility] Last Admin: 07/05/17 09:06 Dose: Not Given Haloperidol Lactate (Haldol) 5 mg IVP Q6 PRN PRN Reason: Agitation Last Admin: 07/03/17 20:27 Dose: 5 mg Vancomycin HCl 1 gm/ Sodium (Chloride) 250 mls @ 166.667 mls/hr IVPB DAILY [facility] PRN Reason: Protocol Last Admin: 07/05/17 09:08 Dose: 166.667 mls/hr Piperacillin Sod/Tazobactam (Sod 3.375 gm/ Sodium Chloride) 100 mls @ 100 mls/ hr IVPB Q6 [facility] PRN Reason: Protocol Last Admin: 07/06/17 04:32 Dose: 100 mls/hr Lorazepam (Ativan) 2 mg IVP Q6H PRN PRN Reason: Agitation Last Admin: 07/05/17 03:06 Dose: 2 mg Lorazepam (Ativan) 1 mg IVP Q6H PRN PRN Reason: anxiety, agitation Last Admin: 07/05/17 23:50 Dose: 1 mg Pantoprazole Sodium (Protonix Inj) 40 mg IVP DAILY [facility] Last Admin: 07/05/17 09:06 Dose: 40 mg Thiamine HCl (Vitamin B1 Tab) 200 mg PO DAILY JAY Last Admin: 07/04/17 09:26 Dose: Not Given Thiamine HCl (Vitamin B1 Inj) 100 mg IM DAILY JAY Last Admin: 07/05/17 09:07 Dose: 100 mg - Labs Labs: 07/06/17 06:30 07/06/17 06:30 PT 13.8 Seconds (9.8-13.1) H 07/06/17 06:30 INR 1.2 (0.9-1.2) 07/06/17 06:30 APTT 32.6 Seconds (25.6-37.1) 06/27/17 03:58 - Constitutional Appears: Non-toxic, No Acute Distress, Other (sedated , lethargic) - Head Exam Head Exam: ATRAUMATIC, NORMOCEPHALIC - Eye Exam Eye Exam: EOMI, PERRL - ENT Exam ENT Exam: Mucous Membranes Moist, Normal Exam - Neck Exam Neck Exam: Normal Inspection - Respiratory Exam Respiratory Exam: Clear to Ausculation Bilateral, NORMAL BREATHING PATTERN. absent: Rales, Rhonchi, Wheezes, Respiratory Distress - Cardiovascular Exam Cardiovascular Exam: REGULAR RHYTHM, RRR, +S1, +S2. absent: JVD - GI/Abdominal Exam GI & Abdominal Exam: Soft, Normal Bowel Sounds. absent: Distended, Guarding, Tenderness, Rebound - Rectal Exam Rectal Exam: Deferred - Extremities Exam Extremities Exam: Full ROM, Normal Capillary Refill, Normal Inspection. absent : Pedal Edema - Back Exam Back Exam: NORMAL INSPECTION - Neurological Exam Additional comments: lethargic , sedated - Skin Skin Exam: Dry, Normal Color, Warm Assessment and Plan - Assessment and Plan (Free Text) Assessment: 62 y/o male was brought to the ED by EMS [facility] confused and disoriented. Patient found to be altered, temp 102. LP performed in ER and meningitis ruled out. Patient was found to have alcohol on him CXR showed cardiomegaly with possible RLL infiltrate CT head neg Patient was admitted to ICU for progressively worsening alcohol withdrawal, delirium tremens and possible pneumonia 06/28 , he was Intubated for airway protection and self extubated on 07/02. At present very lethargic , obtunded , not following any commands 1. Altered mental status likely secondary to Delirium Tremens/ metabolic encephalopathy ? was intubated for airway protection, self extubated LP performed in the ER and meningitis ruled out drug screen negative, ETOH neg no WBC, UA negative, lipase negative, procalcitonin normal Patient is very obtunded and lethargic , not following any commands . Ativan was given last night for agitation Able to maintain his airway for now with O2 sat 97 % on 3 L O2 via NC but with weak cough reflex unable to expectorate repeat ABG showed good oxygenation CXr showed vascular congestion. Lasix 40 mg IV was given with good diuresis Continue DUoneb RTC Keep HOB elevated > 45 degree , aspiration precautions Continue Vanco and Zosyn IV ammonia levels 56 , TSH-- wnl , Vitamin V12- on the lower side so will give 1 injection Vitamin D Stopped all sedation meds , Ativan , Haldol , librium given lactulose DE x 1 dose continue THiamine 2. Delirium tremens patient presented with disorientation, tachycardia, hypertension, hallucinations , hyperthermia was on Precedex drip ( changed to Versed and Propofol while intubated) at present very sedated and obtunded Hold all sedation Continue Thiamine 3. RLL pneumonia Most likely aspiration on Zosyn and vanco IV 4. Rhabdomyolysis improved with hydration Continue IVF. 5. Azotemia/ dehydration Continue hydration 6. Elevated troponin, mild Troponin 0.12 No evidence of ischemia or infarct on EKG ECHO:normal wall motion and LV function 7.Transaminitis sec to Alcohol 8. Thrombocytopenia sec to ETOH resolved 9. Hypokalemia replace with KCl runs 10.DVT prophylaxis Lovenox
[2017-07-06] MEDS ORDERED: Potassium CL 10 MEQ/50 ML 50 ML IVPB SCH (10:00)
[2017-07-06] MEDS: Enoxaparin 40 mg Syringe SC SCH (10:07)
[2017-07-06] MEDS: Thiamine 100 mg/ml Inj IM SCH (10:09)
--- NOTE | 2017-07-06 12:05 | US ---
HISTORY: r/o ascites , cirrhosis COMPARISON: None. TECHNIQUE: Sonographic evaluation of the abdomen. FINDINGS: LIVER: Measures cm. Heterogeneous echogenicity of the liver parenchyma. No mass. No intrahepatic bile duct dilatation. GALLBLADDER: Unremarkable. No gallstones. COMMON BILE DUCT: Measures mm. No stones. No dilatation. PANCREAS: Unremarkable as visualized. No mass. No ductal dilatation. RIGHT KIDNEY: Measures cm. Normal echogenicity. No calculus, mass, or hydronephrosis. LEFT KIDNEY: Measures cm. Normal echogenicity. No calculus, mass, or hydronephrosis. SPLEEN: Enlarged. No mass. AORTA: No aneurysmal dilatation. IVC: Unremarkable. OTHER FINDINGS: None. IMPRESSION: Heterogeneous liver without evidence of mass. Splenomegaly.
[2017-07-06] MEDS: Dextrose 5%/0.45% NS 1,000 ML IV SCH (18:34)
[2017-07-07] MEDS: Piperacillin/Tazobact 3.375 GM in Sodium Chloride 0.9% 100 ML IVPB SCH ×4 (04:13→21:14)
[2017-07-07 06:10] LABS: BLOOD UREA NITROGEN 15 mg/dl (9-20); CALCIUM 8.8 mg/dL (8.4-10.2); CARBON DIOXIDE 29 mmol/L (22-30); CHLORIDE 108 mmol/L (98-107); GFR AFRICAN-AMERICAN > 60; GLUCOSE,RANDOM 108 mg/dL (75-110); POTASSIUM 3.4 MMOL/L (3.6-5.0); SODIUM 145 mmol/l (132-148)
[2017-07-07 06:11] LABS: HEMATOCRIT 34.3 % (35.0-51.0); MEAN CELL VOLUME 97.4 fl (80.0-94.0); MEAN CORPUSCULAR HGB CONC 33.8 g/dL (33.0-37.0); RED CELL DISTRIBUTION WIDTH 13.1 % (11.5-14.5); WHITE BLOOD COUNT 4.7 K/uL (4.8-10.8)
[2017-07-07] MEDS: Albuterol-Ipratrop 3 mg / 0.5 (3 ml) UD INH SCH ×4 (07:16→19:20)
[2017-07-07] MEDS: Enoxaparin 40 mg Syringe SC SCH (08:27)
[2017-07-07] MEDS: Thiamine 100 mg/ml Inj IM SCH (08:28)
[2017-07-07] MEDS ORDERED: Potassium Chloride 20 mEq/15 ml LIQ UD PO ONE (09:17)
--- NOTE | 2017-07-07 09:17 | CP.PCM.PN ---
Subjective - Date & Time of Evaluation Date of Evaluation: 07/07/17 Time of Evaluation: 10:00 - Subjective Subjective: Patient was seen and evaluated bedside.chronically ill male ,older for his age , lying in bed in NAD , a little confused but more awake today. No acute issues overnight Hemodynamically stable, afebrile Objective - Vital Signs/Intake and Output Vital Signs (last 24 hours): Temp Pulse Resp BP Pulse Ox 98.4 F 71 20 121/70 99 07/07/17 08:00 07/07/17 08:00 07/07/17 08:00 07/07/17 08:00 07/07/17 08:00 Intake and Output: 07/07/17 07/07/17 06:59 18:59 Intake Total 900 Output Total 220 Balance 680 - Medications Medications: Current Medications Acetaminophen (Tylenol 650 Mg Supp) 650 mg [place] Q4 PRN PRN Reason: Fever >100.4 F Last Admin: 07/04/17 08:59 Dose: 650 mg Albuterol/Ipratropium (Duoneb 3 Mg/0.5 Mg (3 Ml) Ud) 3 ml INH RQID JAY Last Admin: 07/07/17 07:16 Dose: 3 ml Chlordiazepoxide (Librium) 50 mg PO Q8 JAY Enoxaparin Sodium (Lovenox) 40 mg SC DAILY JAY PRN Reason: Protocol Last Admin: 07/07/17 08:27 Dose: 40 mg Folic Acid (Folic Acid) 1 mg PO DAILY JAY Last Admin: 07/07/17 08:27 Dose: 1 mg Haloperidol Lactate (Haldol) 5 mg IVP Q6 PRN PRN Reason: Agitation Last Admin: 07/03/17 20:27 Dose: 5 mg Vancomycin HCl 1 gm/ Sodium (Chloride) 250 mls @ 166.667 mls/hr IVPB DAILY JAY PRN Reason: Protocol Last Admin: 07/07/17 08:32 Dose: 166.667 mls/hr Piperacillin Sod/Tazobactam (Sod 3.375 gm/ Sodium Chloride) 100 mls @ 100 mls/ hr IVPB Q6 JAY PRN Reason: Protocol Last Admin: 07/07/17 04:13 Dose: 100 mls/hr Dextrose/Sodium Chloride (Dextrose 5%/0.45% Ns 1000 Ml) 1,000 mls @ 50 mls/hr IV .Q20H [facility] Stop: 07/07/17 15:24 Last Admin: 07/06/17 18:34 Dose: 50 mls/hr Lorazepam (Ativan) 2 mg IVP Q6H PRN PRN Reason: Agitation Last Admin: 07/05/17 03:06 Dose: 2 mg Pantoprazole Sodium (Protonix Inj) 40 mg IVP DAILY [facility] Last Admin: 07/07/17 08:28 Dose: 40 mg Thiamine HCl (Vitamin B1 Tab) 200 mg PO DAILY JAY Last Admin: 07/04/17 09:26 Dose: Not Given Thiamine HCl (Vitamin B1 Inj) 100 mg IM DAILY [facility] Last Admin: 07/07/17 08:28 Dose: 100 mg - Labs Labs: 07/07/17 04:30 07/07/17 04:30 PT 13.8 Seconds (9.8-13.1) H 07/06/17 06:30 INR 1.2 (0.9-1.2) 07/06/17 06:30 APTT 32.6 Seconds (25.6-37.1) 06/27/17 03:58 - Constitutional Appears: No Acute Distress, Older Than Stated Age, Confused, Chronically Ill - Head Exam Head Exam: ATRAUMATIC, NORMAL INSPECTION, NORMOCEPHALIC - Eye Exam Eye Exam: EOMI, Normal appearance, PERRL Pupil Exam: NORMAL ACCOMODATION - ENT Exam ENT Exam: Mucous Membranes Dry, Normal Exam - Neck Exam Neck Exam: Normal Inspection - Respiratory Exam Respiratory Exam: Clear to Ausculation Bilateral, NORMAL BREATHING PATTERN. absent: Rhonchi, Wheezes, Respiratory Distress - Cardiovascular Exam Cardiovascular Exam: REGULAR RHYTHM, RRR, +S1, +S2. absent: JVD - GI/Abdominal Exam GI & Abdominal Exam: Soft, Normal Bowel Sounds. absent: Distended, Guarding, Rebound - Rectal Exam Rectal Exam: Deferred - Extremities Exam Extremities Exam: Full ROM, Normal Capillary Refill, Normal Inspection. absent : Calf Tenderness, Pedal Edema - Back Exam Back Exam: NORMAL INSPECTION - Neurological Exam Neurological Exam: Alert, Awake, CN II-XII Intact Additional comments: slightly confused - Psychiatric Exam Psychiatric exam: Flat Affect - Skin Skin Exam: Dry, Warm Assessment and Plan - Assessment and Plan (Free Text) Assessment: 62 y/o male was brought to the ED by EMS after he [facility] confused and disoriented. Patient found to be altered, temp 102. LP performed in ER and meningitis ruled out. Patient was found to have alcohol on him CXR showed cardiomegaly with possible RLL infiltrate CT head neg Patient was admitted to ICU for progressively worsening alcohol withdrawal, delirium tremens and possible pneumonia 06/28 , he was Intubated for airway protection and self extubated on 07/02. At present hemodynamically stable , somewhat confused but awake. 1. Altered mental status likely secondary to Delirium Tremens/ metabolic encephalopathy ? was intubated for airway protection, self extubated LP performed in the ER and meningitis ruled out drug screen negative, ETOH neg initially was sedated with presedex drip , propofol , versed , librium and ativan Patient was very obtunded and lethargic but today appears more awake and alert . Hold off sedation. Patient is not actively withdrawing Able to maintain his airway with O2 sat 97 % on 3 L O2 repeat ABG showed good oxygenation CXR showed vascular congestion. Diuresed well Continue DUoneb RTC Keep HOB elevated > 45 degree , aspiration precautions Continue Vanco and Zosyn IV ammonia levels 56 , TSH-- wnl , Vitamin V12- on the lower side so gave 1 injection f/u Vitamin D continue THiamine 2. Delirium tremens patient presented with disorientation, tachycardia, hypertension, hallucinations , hyperthermia was on Precedex drip ( changed to Versed and Propofol while intubated) at present confused , awake , not withdrawing place on 1:1 for safety Hold all sedation Continue Thiamine 3. RLL pneumonia Most likely aspiration on Zosyn and vanco IV 4. Rhabdomyolysis improved with hydration Continue IVF. 5. Azotemia/ dehydration Continue hydration 6. Elevated troponin, mild Troponin 0.12 No evidence of ischemia or infarct on EKG ECHO:normal wall motion and LV function 7.Transaminitis sec to Alcohol 8. Thrombocytopenia sec to ETOH resolved 9. Hypokalemia replace with KCl runs 10.DVT prophylaxis Lovenox
[2017-07-07] MEDS: Dextrose 5%/0.45% NS 1,000 ML IV SCH (12:02)
[2017-07-08] MEDS: Piperacillin/Tazobact 3.375 GM in Sodium Chloride 0.9% 100 ML IVPB SCH ×2 (03:05→09:58)
[2017-07-08 05:50] LABS: HEMATOCRIT 33.3 % (35.0-51.0); MEAN CELL VOLUME 97.2 fl (80.0-94.0); MEAN CORPUSCULAR HEMOGLOBIN 33.4 pg (27.0-31.0); MEAN CORPUSCULAR HGB CONC 34.3 g/dL (33.0-37.0); RED CELL DISTRIBUTION WIDTH 13.4 % (11.5-14.5); WHITE BLOOD COUNT 4.9 K/uL (4.8-10.8)
[2017-07-08 06:04] LABS: BLOOD UREA NITROGEN 15 mg/dl (9-20); CALCIUM 8.5 mg/dL (8.4-10.2); CARBON DIOXIDE 26 mmol/L (22-30); CHLORIDE 111 mmol/L (98-107); GFR AFRICAN-AMERICAN > 60; GLUCOSE,RANDOM 107 mg/dL (75-110); POTASSIUM 3.4 MMOL/L (3.6-5.0); SODIUM 141 mmol/l (132-148)
[2017-07-08] MEDS: Albuterol-Ipratrop 3 mg / 0.5 (3 ml) UD INH SCH ×4 (07:46→19:28)
[2017-07-08] MEDS ORDERED: Potassium Chloride 20 mEq ER Tab PO ONE (07:59)
[2017-07-08] MEDS: Enoxaparin 40 mg Syringe SC SCH (08:46)
[2017-07-08] MEDS: Thiamine 100 mg/ml Inj IM SCH (08:47)
--- NOTE | 2017-07-08 14:28 | CP.PCM.PN ---
Subjective - Date & Time of Evaluation Date of Evaluation: 07/08/17 Time of Evaluation: 10:00 - Subjective Subjective: Patient seen and examined bedside. More awake and alert , answering questions, participated with PT. hemodynamically stabel, afebrile. No acute issues overnight on 1:1 for safety Objective - Vital Signs/Intake and Output Vital Signs (last 24 hours): Temp Pulse Resp BP Pulse Ox 97.7 F 81 18 121/76 96 07/08/17 12:06 07/08/17 12:06 07/08/17 12:06 07/08/17 12:06 07/08/17 12:06 Intake and Output: 07/08/17 07/08/17 06:59 18:59 Intake Total 750 Output Total 450 Balance 300 - Medications Medications: Current Medications Acetaminophen (Tylenol 650 Mg Supp) 650 mg [place] Q4 PRN PRN Reason: Fever >100.4 F Last Admin: 07/04/17 08:59 Dose: 650 mg Albuterol/Ipratropium (Duoneb 3 Mg/0.5 Mg (3 Ml) Ud) 3 ml INH RQID [facility] Last Admin: 07/08/17 11:10 Dose: 3 ml Enoxaparin Sodium (Lovenox) 40 mg SC DAILY [facility] PRN Reason: Protocol Last Admin: 07/08/17 08:46 Dose: 40 mg Folic Acid (Folic Acid) 1 mg PO DAILY [facility] Last Admin: 07/08/17 08:50 Dose: 1 mg Haloperidol Lactate (Haldol) 5 mg IVP Q6 PRN PRN Reason: Agitation Last Admin: 07/03/17 20:27 Dose: 5 mg Lorazepam (Ativan) 2 mg IVP Q6H PRN PRN Reason: Agitation Last Admin: 07/05/17 03:06 Dose: 2 mg Pantoprazole Sodium (Protonix Inj) 40 mg IVP DAILY [facility] Last Admin: 07/08/17 08:47 Dose: 40 mg Thiamine HCl (Vitamin B1 Tab) 200 mg PO DAILY [facility] Last Admin: 07/04/17 09:26 Dose: Not Given Thiamine HCl (Vitamin B1 Inj) 100 mg IM DAILY [facility] Last Admin: 07/08/17 08:47 Dose: 100 mg - Labs Labs: 07/08/17 04:20 07/08/17 04:20 PT 13.8 Seconds (9.8-13.1) H 07/06/17 06:30 INR 1.2 (0.9-1.2) 07/06/17 06:30 APTT 32.6 Seconds (25.6-37.1) 06/27/17 03:58 - Constitutional Appears: Non-toxic, No Acute Distress - Head Exam Head Exam: ATRAUMATIC, NORMAL INSPECTION, NORMOCEPHALIC - Eye Exam Eye Exam: EOMI, Normal appearance, PERRL Pupil Exam: NORMAL ACCOMODATION - ENT Exam ENT Exam: Mucous Membranes Moist, Normal Exam - Respiratory Exam Respiratory Exam: Clear to Ausculation Bilateral, Rhonchi, NORMAL BREATHING PATTERN. absent: Wheezes, Respiratory Distress - Cardiovascular Exam Cardiovascular Exam: REGULAR RHYTHM, RRR, +S1, +S2. absent: JVD - GI/Abdominal Exam GI & Abdominal Exam: Soft, Normal Bowel Sounds. absent: Distended, Guarding, Tenderness, Rebound - Rectal Exam Rectal Exam: Deferred - Extremities Exam Extremities Exam: Full ROM, Normal Capillary Refill, Normal Inspection. absent : Pedal Edema - Back Exam Back Exam: NORMAL INSPECTION - Neurological Exam Neurological Exam: Alert, Awake, CN II-XII Intact, Oriented x3 Additional comments: with some confusion - Psychiatric Exam Psychiatric exam: Normal Affect - Skin Skin Exam: Dry, Normal Color, Warm Assessment and Plan - Assessment and Plan (Free Text) Assessment: 62 y/o male was brought to the ED by EMS after [facility] was [facility] confused and disoriented. Patient found to be altered, temp 102. LP performed in ER and meningitis ruled out. Patient was found to have alcohol on him CXR showed cardiomegaly with possible RLL infiltrate CT head neg Patient was admitted to ICU for progressively worsening alcohol withdrawal, delirium tremens and possible pneumonia 06/28 , he was Intubated for airway protection and self extubated on 07/02. At present hemodynamically stable , somewhat confused but more awake and alert today and participating with PT. Gait is still unsteady 1. Altered mental status likely secondary to Delirium Tremens/ metabolic encephalopathy ? was intubated for airway protection, self extubated LP performed in the ER and meningitis ruled out drug screen negative, ETOH neg,ammonia levels 56 , TSH-- wnl Vitamin V12- on the lower side so gave 1 injection initially was sedated with presedex drip , propofol , versed , librium and ativan Patient was very obtunded and lethargic but today appears more awake and alert . Hold off sedation. Patient is not actively withdrawing Able to maintain his airway with O2 sat 97 % on 3 L O2 repeat ABG showed good oxygenation CXR showed vascular congestion. Diuresed well Continue DUoneb RTC Keep HOB elevated > 45 degree , aspiration precautions Received 7 days of Vanco and Zosyn IV. will d/c antibiotics continue THiamine Mental status improving . Continue PT for gait instability plan for d/c once stable 2. Delirium tremens patient presented with disorientation, tachycardia, hypertension, hallucinations , hyperthermia was on Precedex drip ( changed to Versed and Propofol while intubated) at present morte awake , alert and oriented , participating with PT Continue 1:1 for safety Hold all sedation Continue Thiamine Transfer to Med/surg Continue PT for gait instability 3. RLL pneumonia Most likely aspiration Received Zosyn and vanco IV for 1 week. D/c antibiotics 4. Rhabdomyolysis improved with hydration Continue IVF. 5. Azotemia/ dehydration improved with hydration 6. Elevated troponin, mild Troponin 0.12 No evidence of ischemia or infarct on EKG ECHO:normal wall motion and LV function 7.Transaminitis sec to Alcohol 8. Thrombocytopenia sec to ETOH resolved 9. Hypokalemia replace with KCl runs 10.DVT prophylaxis Lovenox
[2017-07-09 05:54] LABS: HEMATOCRIT 34.1 % (35.0-51.0); MEAN CELL VOLUME 97.3 fl (80.0-94.0); MEAN CORPUSCULAR HGB CONC 32.9 g/dL (33.0-37.0); RED CELL DISTRIBUTION WIDTH 13.3 % (11.5-14.5)
[2017-07-09 06:14] LABS: BLOOD UREA NITROGEN 13 mg/dl (9-20); CALCIUM 8.5 mg/dL (8.4-10.2); CARBON DIOXIDE 25 mmol/L (22-30); CHLORIDE 108 mmol/L (98-107); GFR AFRICAN-AMERICAN > 60; GLUCOSE,RANDOM 94 mg/dL (75-110); POTASSIUM 3.5 MMOL/L (3.6-5.0); SODIUM 142 mmol/l (132-148)
[2017-07-09] MEDS: Albuterol-Ipratrop 3 mg / 0.5 (3 ml) UD INH SCH ×4 (07:57→19:32)
[2017-07-09] MEDS: Thiamine 100 mg/ml Inj IM SCH (09:27)
[2017-07-09] MEDS: Enoxaparin 40 mg Syringe SC SCH (09:28)
--- NOTE | 2017-07-09 12:35 | CP.PCM.PN ---
Subjective - Date & Time of Evaluation Date of Evaluation: 07/09/17 Time of Evaluation: 11:00 - Subjective Subjective: No fever no SOB denies CP Pt is alert , oriented x 3 speaks [place] answers questions appropriately states that he has been in the [place] for 40 yrs, originally from [facility] some gait imbalance when walking - PT rec TCU Objective - Vital Signs/Intake and Output Vital Signs (last 24 hours): Temp Pulse Resp BP Pulse Ox 97.3 F L 84 18 116/77 98 07/09/17 11:59 07/09/17 11:59 07/09/17 11:59 07/09/17 11:59 07/09/17 11:59 - Medications Medications: Current Medications Acetaminophen (Tylenol 650 Mg Supp) 650 mg [place] Q4 PRN PRN Reason: Fever >100.4 F Last Admin: 07/04/17 08:59 Dose: 650 mg Albuterol/Ipratropium (Duoneb 3 Mg/0.5 Mg (3 Ml) Ud) 3 ml INH RQID [facility] Last Admin: 07/09/17 11:12 Dose: 3 ml Enoxaparin Sodium (Lovenox) 40 mg SC DAILY [facility] PRN Reason: Protocol Last Admin: 07/09/17 09:28 Dose: 40 mg Folic Acid (Folic Acid) 1 mg PO DAILY [facility] Last Admin: 07/09/17 09:27 Dose: 1 mg Haloperidol Lactate (Haldol) 5 mg IVP Q6 PRN PRN Reason: Agitation Last Admin: 07/03/17 20:27 Dose: 5 mg Lorazepam (Ativan) 2 mg IVP Q6H PRN PRN Reason: Agitation Last Admin: 07/05/17 03:06 Dose: 2 mg Lorazepam (Ativan) 0.5 mg IVP Q6 PRN PRN Reason: Agitation Pantoprazole Sodium (Protonix Inj) 40 mg IVP DAILY [facility] Last Admin: 07/09/17 09:29 Dose: 40 mg Thiamine HCl (Vitamin B1 Tab) 200 mg PO DAILY [facility] Last Admin: 07/04/17 09:26 Dose: Not Given Thiamine HCl (Vitamin B1 Inj) 100 mg IM DAILY [facility] Last Admin: 07/09/17 09:27 Dose: 100 mg - Labs Labs: 07/09/17 05:00 07/09/17 05:00 PT 13.8 Seconds (9.8-13.1) H 07/06/17 06:30 INR 1.2 (0.9-1.2) 07/06/17 06:30 APTT 32.6 Seconds (25.6-37.1) 06/27/17 03:58 - Constitutional Appears: No Acute Distress, Unkempt - Head Exam Head Exam: NORMAL INSPECTION, NORMOCEPHALIC - Eye Exam Eye Exam: EOMI, Normal appearance Pupil Exam: NORMAL ACCOMODATION - ENT Exam ENT Exam: Mucous Membranes Moist, Normal External Ear Exam - Neck Exam Neck Exam: Full ROM. absent: Meningismus - Respiratory Exam Respiratory Exam: Rhonchi, NORMAL BREATHING PATTERN. absent: Wheezes, Respiratory Distress - Cardiovascular Exam Cardiovascular Exam: REGULAR RHYTHM, +S1, +S2 - GI/Abdominal Exam GI & Abdominal Exam: Soft, Normal Bowel Sounds. absent: Tenderness - Extremities Exam Extremities Exam: Normal Capillary Refill. absent: Pedal Edema Additional comments: chronic stasis dermatitis changes on both LE - Back Exam Back Exam: absent: CVA tenderness (L), CVA tenderness (R) - Neurological Exam Neurological Exam: Alert, Awake, CN II-XII Intact, Oriented x3 Neuro motor strength exam: Left Upper Extremity: 5, Right Upper Extremity: 5, Left Lower Extremity: 5, Right Lower Extremity: 5 - Psychiatric Exam Psychiatric exam: Normal Affect, Normal Mood - Skin Skin Exam: Dry, Normal Color, Warm Assessment and Plan - Assessment and Plan (Free Text) Assessment: 62 y/o male was brought to the ED by EMS after he was found outside the homeless assisted confused and disoriented. Patient found to be altered, temp 102. LP performed in ER and meningitis ruled out. Patient was found to have alcohol on him CXR showed cardiomegaly with possible RLL infiltrate CT head neg Patient was admitted to ICU for progressively worsening alcohol withdrawal, delirium tremens and possible pneumonia 06/28 , he was Intubated for airway protection and self extubated on 07/02. At present hemodynamically stable , more awake and alert today and participating with PT. Gait is still unsteady . 1. Altered mental status likely secondary to Delirium Tremens/ metabolic encephalopathy ? was intubated for airway protection, self extubated LP performed in the ER and meningitis ruled out drug screen negative, ETOH neg,ammonia levels 56 , TSH-- wnl Vitamin B12- on the lower side so gave 1 injection initially was sedated with precedex drip , propofol , versed , librium and ativan Patient was very obtunded and lethargic but today appears more awake and alert . Hold off sedation. Patient is not actively withdrawing Able to maintain his airway with O2 sat 97 % on 3 L O2 repeat ABG showed good oxygenation CXR showed vascular congestion. Diuresed well Continue DUoneb RTC Keep HOB elevated > 45 degree , aspiration precautions Received 7 days of Vanco and Zosyn IV- now off d/c antibiotics continue THiamine Mental status improving . Continue PT for gait instability plan for d/c once more stable with gait 2. Delirium tremens patient presented with disorientation, tachycardia, hypertension, hallucinations , hyperthermia was on Precedex drip ( changed to Versed and Propofol while intubated) at present morte awake , alert and oriented , participating with PT Continue 1:1 for safety Hold all sedation Continue Thiamine Transfer to Med/surg Continue PT for gait instability 3. RLL pneumonia Most likely aspiration Received Zosyn and vanco IV for 1 week. D/c antibiotics 4. Rhabdomyolysis improved with hydration Continue IVF. 5. Azotemia/ dehydration improved with hydration 6. Elevated troponin, mild Troponin 0.12 No evidence of ischemia or infarct on EKG ECHO:normal wall motion and LV function 7.Transaminitis sec to Alcohol 8. Thrombocytopenia sec to ETOH resolved 9. Hypokalemia replace with KCl runs 10.DVT prophylaxis Lovenox
[2017-07-10] MEDS: Albuterol-Ipratrop 3 mg / 0.5 (3 ml) UD INH SCH ×2 (07:45→11:36)
[2017-07-10] MEDS: Enoxaparin 40 mg Syringe SC SCH (09:42)
[2017-07-10] MEDS: Thiamine 100 mg/ml Inj IM SCH (09:44)
--- NOTE | 2017-07-10 11:15 | CP.PCM.PN ---
Subjective - Date & Time of Evaluation Date of Evaluation: 07/10/17 Time of Evaluation: 10:00 - Subjective Subjective: Pt seen and examined clinically very much better alert, oriented denies CP no SOB no abd pain participates with PT- his gait is unstable -PT rec TCU however pt is uninsured Objective - Vital Signs/Intake and Output Vital Signs (last 24 hours): Temp Pulse Resp BP Pulse Ox 98.0 F 58 L 18 110/66 100 07/10/17 08:00 07/10/17 08:00 07/10/17 08:00 07/10/17 08:00 07/10/17 08:00 Intake and Output: 07/10/17 07/10/17 06:59 18:59 Intake Total 240 Output Total 1400 Balance -1160 - Medications Medications: Current Medications Acetaminophen (Tylenol 650 Mg Supp) 650 mg [place] Q4 PRN PRN Reason: Fever >100.4 F Last Admin: 07/04/17 08:59 Dose: 650 mg Albuterol/Ipratropium (Duoneb 3 Mg/0.5 Mg (3 Ml) Ud) 3 ml INH RQID [facility] Last Admin: 07/10/17 07:45 Dose: 3 ml Enoxaparin Sodium (Lovenox) 40 mg SC DAILY [facility] PRN Reason: Protocol Last Admin: 07/10/17 09:42 Dose: 40 mg Folic Acid (Folic Acid) 1 mg PO DAILY [facility] Last Admin: 07/10/17 09:43 Dose: 1 mg Haloperidol Lactate (Haldol) 5 mg IVP Q6 PRN PRN Reason: Agitation Last Admin: 07/03/17 20:27 Dose: 5 mg Lorazepam (Ativan) 2 mg IVP Q6H PRN PRN Reason: Agitation Last Admin: 07/05/17 03:06 Dose: 2 mg Lorazepam (Ativan) 0.5 mg IVP Q6 PRN PRN Reason: Agitation Last Admin: 07/10/17 01:27 Dose: 0.5 mg Pantoprazole Sodium (Protonix Inj) 40 mg IVP DAILY [facility] Last Admin: 07/10/17 09:43 Dose: 40 mg Thiamine HCl (Vitamin B1 Tab) 200 mg PO DAILY [facility] Last Admin: 07/04/17 09:26 Dose: Not Given Thiamine HCl (Vitamin B1 Inj) 100 mg IM DAILY [facility] Last Admin: 07/10/17 09:44 Dose: 100 mg - Labs Labs: 07/09/17 05:00 07/09/17 05:00 PT 13.8 Seconds (9.8-13.1) H 07/06/17 06:30 INR 1.2 (0.9-1.2) 07/06/17 06:30 APTT 32.6 Seconds (25.6-37.1) 06/27/17 03:58 - Constitutional Appears: No Acute Distress, Unkempt - Head Exam Head Exam: NORMAL INSPECTION, NORMOCEPHALIC - Eye Exam Eye Exam: EOMI, Normal appearance Pupil Exam: NORMAL ACCOMODATION - ENT Exam ENT Exam: Mucous Membranes Moist, Normal External Ear Exam - Neck Exam Neck Exam: Full ROM. absent: Meningismus - Respiratory Exam Respiratory Exam: Rhonchi, NORMAL BREATHING PATTERN. absent: Wheezes, Respiratory Distress - Cardiovascular Exam Cardiovascular Exam: REGULAR RHYTHM, +S1, +S2 - GI/Abdominal Exam GI & Abdominal Exam: Soft, Normal Bowel Sounds. absent: Tenderness - Extremities Exam Extremities Exam: Normal Capillary Refill. absent: Pedal Edema Additional comments: unstable gait chronic stasis dermatitis changes on both LE - Back Exam Back Exam: absent: CVA tenderness (L), CVA tenderness (R) - Neurological Exam Neurological Exam: Alert, Awake, CN II-XII Intact, Oriented x3 Neuro motor strength exam: Left Upper Extremity: 5, Right Upper Extremity: 5, Left Lower Extremity: 5, Right Lower Extremity: 5 - Psychiatric Exam Psychiatric exam: Normal Affect, Normal Mood - Skin Skin Exam: Dry, Normal Color, Warm Assessment and Plan - Assessment and Plan (Free Text) Assessment: 62 y/o male was brought to the ED by EMS after he was found outside the homeless assisted confused and disoriented. Patient found to be altered, temp 102. Patient was found to have alcohol on him . LP performed in ER and meningitis ruled out. CXR showed cardiomegaly with possible RLL infiltrate CT head : neg Patient was admitted to ICU for progressively worsening alcohol withdrawal, delirium tremens and possible pneumonia 06/28 , he was Intubated for airway protection and self extubated on 07/02. At present hemodynamically stable , more awake and alert today and participating with PT. Gait is still unsteady . 1. Altered mental status likely secondary to Delirium Tremens/ metabolic encephalopathy was intubated for airway protection, self extubated LP performed in the ER and meningitis ruled out drug screen negative, ETOH neg,ammonia levels 56 , TSH-- wnl Vitamin B12- on the lower side so gave 1 injection initially was sedated with precedex drip , propofol , versed , librium and ativan Patient was very obtunded and lethargic but now very much improved - awake and alert . Hold off sedation. Patient is not actively withdrawing Able to maintain his airway with O2 sat 97 % on 3 L O2 repeat ABG showed good oxygenation CXR showed vascular congestion. Diuresed well Received 7 days of Vanco and Zosyn IV- now off d/c antibiotics continue Thiamine Mental status improving . Continue PT for gait instability plan for d/c once more stable with gait 2. Delirium tremens patient presented with disorientation, tachycardia, hypertension, hallucinations , hyperthermia was on Precedex drip ( changed to Versed and Propofol while intubated) at present awake , alert and oriented , participating with PT Continue 1:1 for safety Hold all sedation Continue Thiamine Transfer to Med/surg Continue PT for gait instability 3. RLL pneumonia Most likely aspiration Received Zosyn and vanco IV for 1 week. D/c antibiotics 4. Rhabdomyolysis improved with hydration Continue IVF. 5. Azotemia/ dehydration improved with hydration 6. Elevated troponin, mild Troponin 0.12 No evidence of ischemia or infarct on EKG ECHO:normal wall motion and LV function 7.Transaminitis sec to Alcohol 8. Thrombocytopenia sec to ETOH resolved 9. Hypokalemia replace with KCl runs 10.DVT prophylaxis Lovenox
[2017-07-11] MEDS: Enoxaparin 40 mg Syringe SC SCH (08:22)
[2017-07-11] MEDS: Albuterol-Ipratrop 3 mg / 0.5 (3 ml) UD INH SCH (15:55)
[2017-07-11 16:06] VITALS: BP 103/75; PULSE 69; RESP 20; TEMP 98.5; O2SAT 100
--- NOTE | 2017-07-11 17:11 | CP.PCM.DIS ---
Provider - Provider Date of Admission: 06/27/17 05:03 Attending physician: Rosie Dalton MD Primary care physician: None Consults: PT consult Time Spent in preparation of Discharge (in minutes): 20 Hospital Course - Lab Results Lab Results: Micro Results 07/04/17 21:32 Blood-Venous Blood Culture - Final NO GROWTH AFTER 5 DAYS 07/04/17 21:32 Blood-Venous Gram Stain - Final TEST NOT PERFORMED 07/04/17 Unknown Blood-Venous Blood Culture - Final NO GROWTH AFTER 5 DAYS 07/04/17 Unknown Blood-Venous Gram Stain - Final TEST NOT PERFORMED 07/05/17 10:40 Naris MRSA Culture (Admit) - Final MRSA NOT DETECTED 07/04/17 05:25 Sputum Gram Stain - Final 07/04/17 05:25 Sputum Sputum Culture - Final Yeast Species 07/04/17 05:25 Urine,Catheterized Urine Culture - Final No Growth (<1,000 CFU/ML) 06/27/17 04:29 Cerebral Spinal Fluid Gram Stain - Final 06/27/17 04:29 Cerebral Spinal Fluid CSF Culture - Final No growth. 06/27/17 03:50 Blood Blood Culture - Final NO GROWTH AFTER 5 DAYS 06/27/17 03:50 Blood Gram Stain - Final TEST NOT PERFORMED 06/27/17 04:20 Blood Blood Culture - Final NO GROWTH AFTER 5 DAYS 06/27/17 04:20 Blood Gram Stain - Final TEST NOT PERFORMED 06/27/17 09:10 Nose MRSA Culture (Admit) - Final MRSA NOT DETECTED 06/27/17 07:36 Urine Urine Culture - Final No Growth (<1,000 CFU/ML) 06/27/17 04:30 Cerebral Spinal Fluid Gram Stain - Final Most Recent Lab Values WBC 6.0 K/uL (4.8-10.8) 07/09/17 05:00 RBC 3.50 Mil/uL (4.40-5.90) L 07/09/17 05:00 Hgb 11.2 g/dL (12.0-18.0) L 07/09/17 05:00 Hct 34.1 % (35.0-51.0) L 07/09/17 05:00 MCV 97.3 fl (80.0-94.0) H 07/09/17 05:00 MCH 32.0 pg (27.0-31.0) H 07/09/17 05:00 MCHC 32.9 g/dL (33.0-37.0) L 07/09/17 05:00 RDW 13.3 % (11.5-14.5) 07/09/17 05:00 Plt Count 227 K/uL (130-400) 07/09/17 05:00 MPV 10.2 fl (7.2-11.7) 07/01/17 04:30 Neut % (Auto) 70.1 % (50.0-75.0) 07/01/17 04:30 Lymph % (Auto) 10.6 % (20.0-40.0) L 07/01/17 04:30 [place] % (Auto) 15.8 % (0.0-10.0) H 07/01/17 04:30 Eos % (Auto) 2.8 % (0.0-4.0) 07/01/17 04:30 Baso % (Auto) 0.7 % (0.0-2.0) 07/01/17 04:30 Neut # 3.6 K/uL (1.8-7.0) 07/01/17 04:30 Lymph # 0.5 K/uL (1.0-4.3) L 07/01/17 04:30 [place] # 0.8 K/uL (0.0-0.8) 07/01/17 04:30 Eos # 0.1 K/uL (0.0-0.7) 07/01/17 04:30 Baso # 0.0 K/uL (0.0-0.2) 07/01/17 04:30 Neutrophils % (Manual) 82 % (42-75) H 06/27/17 03:58 Lymphocytes % (Manual) 7 % (20-50) L 06/27/17 03:58 Monocytes % (Manual) 11 % (0-10) H 06/27/17 03:58 Platelet Estimate Slightly decreased (NORMAL) L 06/27/17 03:58 Large Platelets Present 06/27/17 03:58 Stomatocytes Moderate 06/27/17 03:58 PT 13.8 Seconds (9.8-13.1) H 07/06/17 06:30 INR 1.2 (0.9-1.2) 07/06/17 06:30 APTT 32.6 Seconds (25.6-37.1) 06/27/17 03:58 pCO2 43 mm/Hg (35-45) 07/05/17 12:20 pO2 96 mm/Hg (80-100) 07/05/17 12:20 HCO3 29.0 mmol/L (21-28) H 07/05/17 12:20 ABG pH 7.45 (7.35-7.45) 07/05/17 12:20 ABG Total CO2 31.2 mmol/L (22-28) H 07/05/17 12:20 ABG O2 Saturation 98.2 % (95-98) H 07/05/17 12:20 ABG O2 Content 16.2 ML/dL (15-23) 07/05/17 12:20 ABG Base Excess 5.3 mmol/L (-2.0-3.0) H 07/05/17 12:20 ABG Hemoglobin 12.0 g/dL (11.7-17.4) 07/05/17 12:20 ABG Carboxyhemoglobin 1.9 % (0.5-1.5) H 07/05/17 12:20 POC ABG HHb (Measured) 1.8 % (0.0-5.0) 07/05/17 12:20 ABG Methemoglobin 0.8 % (0.0-3.0) 07/05/17 12:20 ABG O2 Capacity 16.5 mL/dL (16-24) 07/05/17 12:20 Jason Test Yes 07/05/17 12:20 VBG pH 7.41 (7.32-7.43) 06/27/17 07:13 VBG pCO2 41 mmHg (40-60) 06/27/17 07:13 VBG HCO3 25.3 mmol/L 06/27/17 07:13 VBG Total CO2 27.3 mmol/L (22-28) 06/27/17 07:13 VBG O2 Sat (Calc) 82.2 % (40-65) H 06/27/17 07:13 VBG Base Excess 1.2 mmol/L (0.0-2.0) 06/27/17 07:13 VBG Potassium 3.5 mmol/L (3.6-5.2) L 06/27/17 07:13 A-a O2 Difference 64.0 mm/Hg 07/05/17 12:20 Hgb O2 Saturation 95.5 % (95.0-98.0) 07/05/17 12:20 Sodium 134.0 mmol/L (132-148) 06/27/17 07:13 Chloride 100.0 mmol/L (98-107) 06/27/17 07:13 Glucose 120 mg/dL (75-110) H 06/27/17 07:13 Lactate 1.0 mmol/L (0.7-2.1) 06/27/17 07:13 Vent Mode Ventimask 07/03/17 04:55 Mechanical Rate 14 07/02/17 04:20 FiO2 30.0 % 07/05/17 12:20 Tidal Volume 500 07/02/17 04:20 PEEP 5 07/02/17 04:20 Blood Gas Comments 3l/m nc,rt brachial 07/05/17 12:20 Crit Value Called To Dr bowen almanzar 06/27/17 07:13 Crit Value Called By 15 06/27/17 07:13 Crit Value Read Back Y 06/27/17 07:13 Blood Gas Notified Time 717 06/27/17 07:13 Sodium 142 mmol/l (132-148) 07/09/17 05:00 Potassium 3.5 MMOL/L (3.6-5.0) L 07/09/17 05:00 Chloride 108 mmol/L (98-107) H 07/09/17 05:00 Carbon Dioxide 25 mmol/L (22-30) 07/09/17 05:00 Anion Gap 13 (10-20) 07/09/17 05:00 BUN 13 mg/dl (9-20) 07/09/17 05:00 Creatinine 0.8 mg/dl (0.8-1.5) 07/09/17 05:00 Est GFR ( Amer) > 60 07/09/17 05:00 Est GFR (Non-Af Amer) > 60 07/09/17 05:00 POC Glucose (mg/dL) 127 mg/dL (65-110) H 07/11/17 11:24 Random Glucose 94 mg/dL (75-110) 07/09/17 05:00 Hemoglobin A1c 5.6 % (4.2-6.5) 07/11/17 06:15 Calcium 8.5 mg/dL (8.4-10.2) 07/09/17 05:00 Phosphorus 4.5 mg/dl (2.5-4.5) 07/03/17 04:20 Magnesium 2.0 MG/DL (1.6-2.3) 07/03/17 04:20 Total Bilirubin 1.1 mg/dl (0.2-1.3) 07/06/17 06:30 AST 111 U/L (17-59) H D 07/06/17 06:30 ALT 40 U/L (21-72) 07/06/17 06:30 Alkaline Phosphatase 98 U/L (38-126) 07/06/17 06:30 Ammonia 56 umo/L (16-60) 07/05/17 12:00 Total Creatine Kinase 2585 U/L (55-170) H 06/30/17 04:20 CK-MB (Mass) 38.9 ng/mL (0.0-3.38) H 06/27/17 07:04 Troponin I 0.0560 ng/mL (0.00-0.120) 06/27/17 21:40 Total Protein 8.2 G/DL (6.3-8.2) 07/06/17 06:30 Albumin 4.0 g/dL (3.5-5.0) 07/06/17 06:30 Globulin 4.2 gm/dL (2.2-3.9) H 07/06/17 06:30 Albumin/Globulin Ratio 1.0 (1.0-2.1) 07/06/17 06:30 Lipase 31 U/L (23-300) 06/27/17 08:28 Vitamin B12 293 pg/mL (239-931) 07/05/17 12:00 25-OH Vitamin D Total < 12.8 NG/ML (30.0-100.0) L 07/05/17 15:41 Procalcitonin 0.11 NG/ML (0.19-0.49) L 06/27/17 08:50 TSH 3rd Generation 1.48 mIU/ML (0.46-4.68) 07/05/17 12:00 Venous Blood Potassium 3.5 mmol/L (3.6-5.2) L 06/27/17 07:13 Urine Color Yellow (YELLOW) 07/04/17 02:14 Urine Clarity Slighty-cloudy (Clear) 07/04/17 02:14 Urine pH 7.0 (5.0-8.0) 07/04/17 02:14 Ur Specific [place] 1.013 (1.003-1.030) 07/04/17 02:14 Urine Protein Negative mg/dL (NEGATIVE) 07/04/17 02:14 Urine Glucose (UA) Neg mg/dL (Normal) 07/04/17 02:14 Urine Ketones Negative mg/dL (NEGATIVE) 07/04/17 02:14 Urine Blood Large (NEGATIVE) 07/04/17 02:14 Urine Nitrate Negative (NEGATIVE) 07/04/17 02:14 Urine Bilirubin Negative (NEGATIVE) 07/04/17 02:14 Urine Urobilinogen 2.0 mg/dL (0.2-1.0) 07/04/17 02:14 Ur Leukocyte Esterase Neg [place]/uL (Negative) 07/04/17 02:14 Urine RBC (Auto) 137 /hpf (0-3) H 07/04/17 02:14 Urine Microscopic WBC 4 /hpf (0-5) 07/04/17 02:14 Ur Squamous Epith Cells < 1 /hpf (0-5) 06/27/17 06:04 Fluid Type Spinal fluid 06/27/17 04:49 CSF Volume 3 mL (0-1) H 06/27/17 04:49 CSF Appearance Clear/colorless (CLEAR) 06/27/17 04:49 CSF WBC 1.0 /mm3 (0.0-5.0) 06/27/17 04:49 CSF RBC 20.0 /mm3 (0.0-0.0) H 06/27/17 04:49 CSF Total Cell Counted TEST NOT PERFORMED 06/27/17 04:49 CSF Neutrophils 2 % (0-0) H 06/27/17 04:49 CSF Lymphocytes 1.0 % (0-0) H 06/27/17 04:49 CSF Monos/Macrophages 1 % (0-0) H 06/27/17 04:49 CSF Comment None 06/27/17 04:49 CSF Glucose 72 mg/dL (40-70) H 06/27/17 04:49 CSF Total Protein 60.0 mg/dL (12-60) 06/27/17 04:49 CSF VDRL Titer TEST NOT PERFORMED 06/27/17 08:32 CSF VDRL Nonreactive (Nonreactive) 06/27/17 08:32 Urine Opiates Screen Negative (NEGATIVE) 06/27/17 06:04 Urine Methadone Screen Negative (NEGATIVE) 06/27/17 06:04 Ur Barbiturates Screen Negative (NEGATIVE) 06/27/17 06:04 Ur Phencyclidine Scrn Negative (NEGATIVE) 06/27/17 06:04 Ur Amphetamines Screen Negative (NEGATIVE) 06/27/17 06:04 U Benzodiazepines Scrn Negative (NEGATIVE) 06/27/17 06:04 U Oth Cocaine Metabols Negative (NEGATIVE) 06/27/17 06:04 U Cannabinoids Screen Negative (NEGATIVE) 06/27/17 06:04 Alcohol, Quantitative < 10 mg/dl (0-10) 06/27/17 04:06 HSV Source Description Csf 06/27/17 07:49 HSV I DNA PCR Not detected (Not Detected) 06/27/17 07:49 HSV II DNA PCR Not detected (Not Detected) 06/27/17 07:49 - Hospital Course Hospital Course: 62 y/o male was brought to the ED by EMS after [facility] confused and disoriented. Patient found to be altered, temp 102. Patient was found to have alcohol on him . LP performed in ER and meningitis ruled out. CXR showed cardiomegaly with possible RLL infiltrate CT head : neg Patient was admitted to ICU for progressively worsening alcohol withdrawal, delirium tremens and possible pneumonia. He was started on IVF , vanco Zosyn and presedex drip . 06/28 , he was Intubated for airway protection and self extubated on 07/02. Post extubation he remained confused and was placed on 1;1 for safety. He was treated with Ativan PRN for agitation, thiamine , Folic acid and MVI. he finished full course of Iv antibiotics for pneumonia . PT was consulted for gait eval and patient was found to be unsteady requiring more PT session during the stay. At present he is awake, alert ,oriented to place, time and self, cooperative,answering questions appropriately,hemodynamically stable ,afebrile , in no distress , tolerating po intake. Patient is medically stable for discharge to jail. Cleared by Physical therapy for discharge with walker and follow up with outpatient PT. Walker provided to patient on discharge Counselled patient on ETOH abuse Follow up with [facility] in 1 week 1. Altered mental status likely secondary to Delirium Tremens/ metabolic encephalopathy was intubated for airway protection, self extubated LP performed in the ER and meningitis ruled out drug screen negative, ETOH neg,ammonia levels 56 , TSH-- wnl Vitamin B12- on the lower side so gave 1 injection initially was sedated with precedex drip , propofol , versed , librium and ativan Patient was very obtunded and lethargic but now very much improved - AAOx3 answering questions appropriately hemodynamically stable, afebrile saturating 100 % in RA Received 7 days of Vanco and Zosyn IV continue Thiamine Mental status improved . will d/c to jail 2. Delirium tremens patient presented with disorientation, tachycardia, hypertension, hallucinations , hyperthermia was on Precedex drip ( changed to Versed and Propofol while intubated), on 1 ; 1 for safety and on avasyst at present awake , alert and oriented , participated with PT Continue Thiamine Cleared by PT for discharge with walker and outpatient PT Medically cleared for discharge 3. RLL pneumonia Most likely aspiration Received Zosyn and vanco IV for 1 week. 4. Rhabdomyolysis improved with hydration Continue IVF. 5. Azotemia/ dehydration improved with hydration 6. Elevated troponin, mild Troponin 0.12 No evidence of ischemia or infarct on EKG ECHO:normal wall motion and LV function 7.Transaminitis sec to Alcohol 8. Thrombocytopenia sec to ETOH resolved 9. Hypokalemia replaced with KCl runs 10.DVT prophylaxis Lovenox Discharge Exam - Head Exam Head Exam: NORMAL INSPECTION, NORMOCEPHALIC - Eye Exam Eye Exam: EOMI, Normal appearance, PERRL Pupil Exam: NORMAL ACCOMODATION - ENT Exam ENT Exam: Mucous Membranes Moist, Normal Exam - Neck Exam Neck exam: Full Rom, Normal Inspection - Respiratory Exam Respiratory Exam: Clear to PA & Lateral, NORMAL BREATHING PATTERN. absent: Rales, Rhonchi, Wheezes, Respiratory Distress - Cardiovascular Exam Cardiovascular Exam: REGULAR RHYTHM, RRR, +S1, +S2. absent: JVD - GI/Abdominal Exam GI & Abdominal Exam: Normal Bowel Sounds, Soft. absent: Distended, Guarding, Rebound, Tenderness - Rectal Exam Rectal Exam: Deferred - Extremities Exam Extremities exam: normal capillary refill, normal inspection, pedal pulses present - Back Exam Back exam: NORMAL INSPECTION - Neurological Exam Neurological exam: Alert, CN II-XII Intact, Oriented x3 - Psychiatric Exam Psychiatric exam: Normal Affect - Skin Skin Exam: Dry, Normal Color, Warm Discharge Plan - Discharge Medications Prescriptions: Folic Acid 1 mg PO DAILY #30 tab Thiamine [Vitamin B1 Tab] 200 mg PO DAILY #30 tab - Follow Up Plan Condition: IMPROVED Disposition: HOME/ ROUTINE Patient education suggested?: Yes Instructions: Abuse of Alcohol (DC), Altered Mental Status (GEN), Alcohol Withdrawal (DC) Additional Instructions: Follow up with Out patient physical therapy Walker for gait stability Counselled on ETOH abuse Referrals: [facility] [place] [Outside]
== END 2017-07-11 18:07 | disposition home or self-care (01) | DRG 882 ==
LOC: H.ER 03:26 → H.ERHOLD 05:03 → H.ICU/CCU 08:44 → H.TEL 07-05 22:13 → H.MEDSURG1 07-10 12:55
PROVIDERS: ADMIT Internal Medicine; ATTEND Internal Medicine
PROC: 009U3ZX Drainage of Spinal Canal, Percutaneous Approach, Diagnostic (ICD-10-PCS; 2017-06-27)
PROC: 5A1945Z Respiratory Ventilation, 24-96 Consecutive Hours (ICD-10-PCS; principal; 2017-06-28)
PROC: 0BH17EZ Insertion of Endotracheal Airway into Trachea, Via Natural or Artificial Opening (ICD-10-PCS; 2017-06-28)
PROC: 3E0234Z Introduction of Serum, Toxoid and Vaccine into Muscle, Percutaneous Approach (ICD-10-PCS; 2017-06-30)
PROC: 5A09457 Assistance with Respiratory Ventilation, 24-96 Consecutive Hours, Continuous Positive Airway Pressure (ICD-10-PCS; 2017-07-03)
DX: J69.0 Pneumonitis due to inhalation of food and vomit (principal); J96.01 Acute respiratory failure with hypoxia; G93.41 Metabolic encephalopathy; F10.231 Alcohol dependence with withdrawal delirium; M62.82 Rhabdomyolysis; D69.59 Other secondary thrombocytopenia; Z78.1 Physical restraint status; E86.0 Dehydration; E87.6 Hypokalemia; I10 Essential (primary) hypertension; I51.7 Cardiomegaly; Z23 Encounter for immunization; Z59.0 Homelessness

== ENCOUNTER 2017-09-21 21:42 | Emergency (ER) | payer SELFPAY ==
[2017-09-21 21:42] VITALS: BMI 29.2
[2017-09-21 22:30] VITALS: BP 159/95; PULSE 80; RESP 16; TEMP 97.6; O2SAT 100
--- NOTE | 2017-09-22 05:06 | ED PDOC ---
HPI: Psych/Substance Abuse Time Seen by Provider: 09/21/17 22:05 Chief Complaint (Nursing): Alcohol Ingestion Chief Complaint (Provider): Alcohol Ingestion History Per: Patient History/Exam Limitations: no limitations Current Symptoms Are (Timing): Still Present Suicide/Self Injury Attempted (Context): None Modifying Factor(s): Alcohol Additional Complaint(s): 62 year old male brought in by EMS presents to ED due to alcohol intoxication and has unknown past medical history. Notes that he was denied entry to the homeless long term due to smelling like alcohol. States that he called EMS to bring him to the hospital. PCP: None Past Medical History Reviewed: Historical Data, Nursing Documentation, Vital Signs Vital Signs: Last Vital Signs Temp 97.6 F 09/21/17 22:27 Pulse 80 09/21/17 22:27 Resp 16 09/21/17 22:27 BP 159/95 H 09/21/17 22:27 Pulse Ox 100 09/21/17 22:27 - Medical History PMH: Comment Only: Chronic Kidney Disease (unable to obtain) - Family History Family History: States: Unknown Family Hx - Living Arrangements Living Arrangements: Other (Non-domiciled) - Home Medications Home Medications: Ambulatory Orders Medication Instructions Recorded Folic Acid 1 mg PO DAILY #30 tab 07/11/17 Thiamine [Vitamin B1 Tab] 200 mg PO DAILY #30 tab 07/11/17 - Allergies Allergies/Adverse Reactions: Allergies Allergy/AdvReac Type Severity Reaction Status Date / Time No Known Allergies Allergy Verified 02/22/15 01:47 Review of Systems Review Of Systems: ROS cannot be obtained secondary to pt's inabilty to answer questions. Physical Exam - Reviewed Nursing Documentation Reviewed: Yes Vital Signs Reviewed: Yes - Physical Exam Appears: Positive for: Non-toxic, No Acute Distress (alcohol on breath) Skin: Positive for: Normal Color, Warm, Dry Cardiovascular/Chest: Positive for: Regular Rate, Rhythm Respiratory: Positive for: Normal Breath Sounds. Negative for: Respiratory Distress Gastrointestinal/Abdominal: Positive for: Soft Neurologic/Psych: Positive for: Alert, Gait (steady). Negative for: Motor/ Sensory Deficits - ECG O2 Sat by Pulse Oximetry: 100 (RA) Pulse Ox Interpretation: Normal Medical Decision Making Medical Decision Makin Initial impression: alcohol intoxication Initial plan: * Clinical sobriety 0600 Patient awake and resting in bed. Vitals stable. 0632 Patient is awake, alert, and oriented x3. Patient walks with a steady gait and is stable for discharge. Scribe Attestation: Documented by Patt Davis acting as a scribe for Wil Hermosillo MD. Scribe Attestation: All medical record entries made by the Scribe were at my direction and personally dictated by me. I have reviewed the chart and agree that the record accurately reflects my personal performance of the history, physical exam, medical decision making, and the department course for this patient. I have also personally directed, reviewed, and agree with the discharge instructions and disposition. Disposition - Clinical Impression Clinical Impression: Alcohol abuse - Patient ED Disposition Is Patient to be Admitted: No Counseled Patient/Family Regarding: Diagnosis, Need For Followup - Disposition Referrals: [facility] [Outside] [facility] [Outside] Disposition: Routine/Home Disposition Time: 05:35 Condition: IMPROVED Additional Instructions: follow up with louise león primary doctorin 1-2 days return to the ED with any worsening or concerning symptoms Instructions: Abuse of Alcohol (ED) Forms: [employer] (Citizen [place])
== END 2017-09-22 06:44 | disposition home or self-care (01) ==
LOC: H.ER 21:42
DX: F10.129 Alcohol abuse with intoxication, unspecified (principal)